=== PATIENT | female | born 1970 | race Caucasian/White ===

== ENCOUNTER 2016-10-14 19:36 | Emergency (ER) | payer OTHER ==
[2016-10-14] MEDS ORDERED: SODIUM CHLORIDE 0.9% 1,000 ML IV ONE (21:07)
[2016-10-14 21:19] LABS: BASOPHILS # (AUTO) 0.1 10^3/uL (0.0-0.1); BASOPHILS % (AUTO) 0.7 %; EOSINOPHILS # (AUTO) 0.1 10^3/uL (0.0-0.7); EOSINOPHILS % (AUTO) 1.2 %; HCT - HEMATOCRIT 41.1 % (37.0-47.0); HGB - HEMOGLOBIN 13.9 g/dL (12.0-16.0); LYMPHOCYTES # (AUTO) 2.3 10^3/uL (1.5-3.5); LYMPHOCYTES % (AUTO) 28.4 %; MEAN CORPUSCULAR HGB CONC 33.8 g/dL (32.0-36.0); MEAN CORPUSCULAR VOLUME 94.7 fL (81.0-99.0); MEAN PLATELET VOLUME 8.6 fL (7.9-10.8); MONOCYTES # (AUTO) 0.6 10^3/uL (0.0-1.0); MONOCYTES % (AUTO) 7.3 %; NEUTROPHILS # (AUTO) 5.1 10^3/uL (1.5-6.6); NEUTROPHILS % (AUTO) 62.4 %; NUCLEATED RED BLOOD CELLS AUTO 0.1 /100WBC; RED BLOOD COUNT 4.34 10^6/uL (4.20-5.40); RED CELL DISTRIBUTION WIDTH 12.7 % (12.0-15.0); UNCORRECTED WHITE BLOOD COUNT 8.2 x10^3/uL; WHITE BLOOD COUNT 8.2 x10^3/uL (4.8-10.8)
[2016-10-14 21:27] LABS: BILIRUBIN,URINE NEGATIVE (NEGATIVE)
[2016-10-14 21:29] LABS: UA w/ MICROSCOPIC CHARGE YES
[2016-10-14 21:33] LABS: ALBUMIN/GLOBULIN RATIO 1.6 (1.0-2.2); BILIRUBIN,TOTAL 0.2 mg/dL (0.2-1.0); CALCIUM 8.7 mg/dL (8.5-10.3); CREATININE 0.9 mg/dL (0.4-1.0); MAGNESIUM 2.1 mg/dL (1.7-2.8); PHOSPHORUS 4.1 mg/dL (2.5-4.6); TOTAL PROTEIN 6.7 g/dL (6.7-8.2)
[2016-10-14 21:40] LABS: UR CULTURE IF IND NOT INDICATED; WBC,URINE 0-3 /HPF (0-5)
--- NOTE | 2016-10-14 22:34 | ED Physician Documentation ---
History of Present Illness - Stated complaint Stated Complaint: SYNCOPE/ R SIDE PX - Chief complaint Chief Complaint: General - History obtained from History obtained from: Patient, Family - History of Present Illness Timing: Today - Additonal information Additional information: Patient is a 46 year old female who is presenting to the emergency department for generalized weakness, muscle cramps, hot flashes and near syncope. Patient states that for years she has had issues where her blood sugar drops, as low as 35. Patient states that today she felt weak and clammy. patient did not have a glucometer but she was able to eat some food and the symptoms partially improved. Patient also reports that she has been feeling light headed and overall fatigue. She states that recently she has been getting hot flashes as well. Review of Systems Constitutional: reports: Fever, Chills, Myalgias, Fatigue, Sweats. denies: Weight Loss Eyes: denies: Loss of vision, Photophobia, Discharge, Irritation Ears: denies: Loss of hearing, Ear pain, Drainage/discharge Nose: reports: Congestion, Sinus pressure / pain Throat: denies: Dental pain / toothache, Sore throat Respiratory: denies: Dyspnea, Cough, Wheezing GI: reports: Abdominal Pain, Nausea. denies: Vomiting, Constipation, Diarrhea, Hematemesis : denies: Dysuria, Frequency, Hesitancy, Incontinent, Hematuria, Discharge, Vaginal bleeding, Irregular menses Skin: denies: Rash, Lesions, Abrasion (s), Laceration (s) Musculoskeletal: denies: Neck pain, Back pain, Extremity pain, Joint pain Neurologic: reports: Generalized weakness, Near syncope. 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, 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 - Present Medications Home Medications: Ambulatory Orders Medication Instructions Recorded Confirmed Atenolol 50 mg PO DAILY 02/04/15 10/14/16 Citalopram [CeleXA] 50 mg PO DAILY 02/04/15 10/14/16 Flecainide [Tambocar] 150 mg PO DAILY 02/04/15 10/14/16 Multivitamin,Ther and Minerals 1 tab PO DAILY 02/04/15 10/14/16 [Vitamin and Minerals] busPIRone [Buspar] 10 mg PO TID 02/04/15 10/14/16 traMADol [Ultram] 50 mg PO DAILY PRN 12/11/15 10/14/16 HYDROcod/ACETAM 5/325 [[place] 5/325] 1 - 2 ea PO Q6H PRN #14 tablet 03/25/1605/22 Cyclobenzaprine [Flexeril] 1 tab PO TID 09/02/16 10/14/16 - Allergies Allergies/Adverse Reactions: Allergies Allergy/AdvReac Type Severity Reaction Status Date / Time gabapentin Allergy Edema Verified 10/14/16 19:50 nortriptyline Allergy Hallucinati Verified 10/14/16 19:50 ons pregabalin [From Lyrica] Allergy Edema Verified 10/14/16 19:50 scallops Allergy Rash Verified 10/14/16 19:50 - Social History Does the pt smoke?: Yes Smoking Status: Current every day smoker Does the pt drink ETOH?: No Does the pt have substance abuse?: No - Immunizations Immunizations are current?: Yes - POLST Patient has POLST: No PD ED PE NORMAL - Vitals Vital signs reviewed: Yes - General General: Alert and oriented X 3, Well developed/nourished - HEENT HEENT: Atraumatic, PERRL, Moist mucous membranes, Pharynx benign - Neck Neck: Supple, no meningeal sign, No JVD - Cardiac Cardiac: RRR, No murmur, No rub - Respiratory Respiratory: No respiratory distress, Clear bilaterally - Abdomen Abdomen: Soft, Non distended - Derm Derm: Normal color, Warm and dry, No rash - Extremities Extremities: No deformity, No tenderness to palpate, Normal ROM s pain, No edema - Neuro Neuro: Alert and oriented X 3, injection molding technician 2-12 intact, No motor deficit, No sensory deficit, Normal speech - Psych Psych: Normal mood, Normal affect Results - Vitals Vitals: Vital Signs - 24 hr 10/14/16 10/14/16 10/14/16 19:44 21:45 22:38 Temperature 37.0 C Heart Rate 98 67 66 Respiratory 16 16 15 Rate Blood Pressure 132/86 H 124/67 129/69 O2 Saturation 99 100 100 Oxygen O2 Source Room air - EKG (time done) 3 Rate: Rate (enter#) (66) Rhythm: NSR N[place]: Normal Intervals: Normal IA QRS: Normal Ischemia: Normal ST segments - Labs Labs: Laboratory Tests 10/14/16 10/14/16 10/14/16 20:50 21:15 21:15 WBC 8.2 RBC 4.34 Hgb 13.9 Hct 41.1 MCV 94.7 MCH 32.0 H MCHC 33.8 RDW 12.7 Plt Count 228 MPV 8.6 Neut # 5.1 Lymph # 2.3 [place] # 0.6 Eos # 0.1 Baso # 0.1 Absolute Nucleated RBC 0.01 Nucleated RBCs 0.1 Sodium 137 Potassium 4.0 Chloride 102 Carbon Dioxide 26 Anion Gap 9.0 BUN 14 Creatinine 0.9 Estimated GFR (MDRD) 67 L Glucose 93 Calcium 8.7 Phosphorus 4.1 Magnesium 2.1 Total Bilirubin 0.2 AST 38 ALT 46 Alkaline Phosphatase 126 H B-Natriuretic Peptide Total Protein 6.7 Albumin 4.1 Globulin 2.6 Albumin/Globulin Ratio 1.6 Lipase 21 L TSH Urine Color YELLOW Urine Clarity CLEAR Urine pH 6.0 Ur Specific [place] 1.025 Urine Protein NEGATIVE Urine Glucose (UA) NEGATIVE Urine Ketones NEGATIVE Urine Occult Blood MODERATE H Urine Nitrite NEGATIVE Urine Bilirubin NEGATIVE Urine Urobilinogen 0.2 (NORMAL) Ur Leukocyte Esterase NEGATIVE Urine RBC 0-5 Urine WBC 0-3 Ur Squamous Epith Cells FEW Squamous Urine Bacteria Few Urine Mucus Few Strands Ur Microscopic Review INDICATED Urine Culture Comments NOT INDICATED 10/14/16 10/14/16 21:15 21:15 WBC RBC Hgb Hct MCV MCH MCHC RDW Plt Count MPV Neut # Lymph # [place] # Eos # Baso # Absolute Nucleated RBC Nucleated RBCs Sodium Potassium Chloride Carbon Dioxide Anion Gap BUN Creatinine Estimated GFR (MDRD) Glucose Calcium Phosphorus Magnesium Total Bilirubin AST ALT Alkaline Phosphatase B-Natriuretic Peptide 9 Total Protein Albumin Globulin Albumin/Globulin Ratio Lipase TSH 2.54 Urine Color Urine Clarity Urine pH Ur Specific [place] Urine Protein Urine Glucose (UA) Urine Ketones Urine Occult Blood Urine Nitrite Urine Bilirubin Urine Urobilinogen Ur Leukocyte Esterase Urine RBC Urine WBC Ur Squamous Epith Cells Urine Bacteria Urine Mucus Ur Microscopic Review Urine Culture Comments PD MEDICAL DECISION MAKING - ED course Complexity details: reviewed results, re-evaluated patient, considered differential, d/w patient, d/w family ED course: Patient was seen and examined at bedside. iv access was gained and labs were drawn. ekg was performed and was within normal limits. Patient was treated with ns bolus. Patient responded well to the therapy. patient's diagnostics were all within normal limits. the findings were discussed with the patient and her family. Patient stated that she was feeling better and wanted to go home. patient required no further work up and was stable for discharge with outpatient follow up. Departure - Departure Disposition: Home, Self Care Clinical Impression: Fatigue Condition: Good Instructions: Hypoglycemia Follow-Up: primary,care provider [Other] - Within 1 week Comments: Your diagnostics today were within normal limits. There was no sign of acute infection, or any type of electrolyte abnormality. Some of your symptoms might be related to a perimenopause symptoms. You should follow up with your pmd within the next week if possible for re-evaluation and care. You may return to the emergency department at any time for new, worsening or uncontrollable symptoms. Discharge Date/Time: 10/14/16 22:43
[2016-10-14 22:39] VITALS: BP 129/69
== END 2016-10-14 22:43 | disposition home or self-care (01) ==
LOC: ED 19:36
DX: R53.83 Other fatigue (principal); N95.1 Menopausal and female climacteric states; I10 Essential (primary) hypertension; M79.7 Fibromyalgia; F17.200 Nicotine dependence, unspecified, uncomplicated
CPT/HCPCS: 36415; 80053; 81001; 81003; 83690; 83735; 83880; 84100; 84443; 85025; 87086; 93005; 93010; 99284

== ENCOUNTER 2016-11-15 14:01 | Outpatient (CLI) | payer OTHER ==
--- NOTE | 2016-11-16 17:36 | Mammography Report ---
DIGITAL SCREENING MAMMOGRAM: 11/15/2016 CLINICAL INDICATION: A 46-year-old with history of benign left breast biopsy for screening. COMPARISON: 03/2015, 03/2014, 07/2013. TECHNIQUE: Routine CC and MLO projections were obtained of the breasts. The breasts demonstrate scattered fibroglandular densities bilaterally. Post-biopsy changes in the l eft upper-inner posterior breast are stable, with biopsy marker in place. A few punctate, typically benign calcifications are present. No suspicious masses, clustered microcalcifications, or regions o f architectural distortion are identified. IMPRESSION: BENIGN FINDINGS. RECOMMENDATION: ROUTINE ANNUAL SCREENING UNLESS OTHERWISE CLINICALLY INDICATED. BIRADS CATEGORY: 2, BENIGN FINDINGS. STANDARD QUALIFYING STATEMENTS 1. This examination was reviewed with the aid of Computed-Aided Detection (CAD). 2. A negative or benign imaging report should not delay biopsy if clinically suspicious findings are present. Consider surgical consultation if warranted. More than 5% of cancers are not identified b y imaging. 3. Dense breasts may obscure an underlying neoplasm. JOB #: [id number] EXT JOB #:[id number]
== END 2016-11-15 14:02 | disposition home or self-care (01) ==
LOC: DI 14:01
PROVIDERS: ATTEND Internal Medicine
DX: Z12.31 Encounter for screening mammogram for malignant neoplasm of breast (principal)
CPT/HCPCS: 77067

== ENCOUNTER 2017-01-03 13:32 | Outpatient (CLI) | payer OTHER | END 2017-01-03 13:33 | disposition home or self-care (01) | DX: G47.33 Obstructive sleep apnea (adult) (pediatric) (principal) ==

== ENCOUNTER 2017-01-24 19:34 | Outpatient (CLI) | payer OTHER | END 2017-01-24 19:35 | disposition home or self-care (01) | LOC: SC 19:34 | PROVIDERS: ATTEND Internal Medicine Pulmonary Disease | DX: G47.61 Periodic limb movement disorder (principal) | CPT/HCPCS: 95810 ==

== ENCOUNTER 2017-02-24 08:55 | Outpatient (CLI) | payer OTHER | END 2017-02-24 08:56 | disposition home or self-care (01) | LOC: SC 08:55 | PROVIDERS: ATTEND Nurse Practitioner Family | DX: G47.61 Periodic limb movement disorder (principal); R06.83 Snoring; I49.9 Cardiac arrhythmia, unspecified | CPT/HCPCS: 99212; 99214 ==

== ENCOUNTER 2017-04-28 12:31 | Emergency (ER) | payer OTHER ==
[2017-04-28] MEDS ORDERED: DEXAMETHASONE 10 MG/ML VIAL PO STA (13:45)
--- NOTE | 2017-04-28 13:49 | ED Physician Documentation ---
PD HPI HEADACHE - Stated complaint Stated Complaint: HEAD PX, L SIDE FACE NUMB - Chief complaint Chief Complaint: Neuro - History obtained from History obtained from: Patient - History of Present Illness Timing - onset: How many days ago (11) Timing - onset during: Rest Timing - duration: Days (11) Timing - details: Gradual onset, Still present Worst headache ever?: No: Worst headache ever? Location: Left Quality: Stabbing Associated symptoms: Stiff neck, Numbness. No: Nausea, Vomiting, Weakness Improved by: Rest Worsened by: Light, Noise, Moving Contributing factors: No: Anticoagulated Similar symptoms before: Diagnosis (migraines) Recently seen: Not recently seen - Additional information Additional information: 46-year-old female with a history of herpes type I-type II and Herpetic yogesh has developed a headache on the left side of her head that she describes as intense prickling in the side of her head and onto her face. She feels a pins and needles and numbness. She has pain in episodes that occurs with irritation to her skin and she has developed some tiny blisters in several areas. She has not developed blisters in the scalp but she has had pain in the scalp. She has had symptoms similar to this previously to a much lesser extent that it spontaneously resolved previously. Review of Systems Constitutional: reports: Fatigue. denies: Fever, Chills Eyes: reports: Photophobia. denies: Decreased vision Ears: denies: Ear pain Nose: denies: Rhinorrhea / runny nose, Congestion Throat: denies: Sore throat Cardiac: denies: Chest pain / pressure, Palpitations Respiratory: denies: Dyspnea, Cough GI: denies: Nausea, Vomiting : denies: Dysuria, Frequency Skin: reports: Rash Musculoskeletal: reports: Neck pain. denies: Back pain, Extremity pain Neurologic: reports: Numbness, Headache. 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 - Present Medications Home Medications: Ambulatory Orders Medication Instructions Recorded Confirmed Atenolol 50 mg PO DAILY 02/04/15 04/28/17 Citalopram [CeleXA] 50 mg PO DAILY 02/04/15 04/28/17 Flecainide [Tambocar] 150 mg PO DAILY 02/04/15 04/28/17 Multivitamin,Ther and Minerals 1 tab PO DAILY 02/04/15 04/28/17 [Vitamin and Minerals] busPIRone [Buspar] 10 mg PO TID 02/04/15 04/28/17 Cyclobenzaprine [Flexeril] 1 tab PO TID 09/02/16 04/28/17 HYDROcod/ACETAM 5/325 [[place] 5/325] 1 - 2 ea PO Q6H PRN #15 tablet 04/28/17 - Allergies Allergies/Adverse Reactions: Allergies Allergy/AdvReac Type Severity Reaction Status Date / Time gabapentin Allergy Edema Verified 04/28/17 12:47 nortriptyline Allergy Hallucinati Verified 04/28/17 12:47 ons pregabalin [From Lyrica] Allergy Edema Verified 04/28/17 12:47 scallops Allergy Rash Verified 04/28/17 12:47 - Social History Does the pt smoke?: Yes Smoking Status: Current every day smoker Does the pt drink ETOH?: No Does the pt have substance abuse?: No - Immunizations Immunizations are current?: Yes - POLST Patient has POLST: No PD ED PE NORMAL - Vitals Vital signs reviewed: Yes (Normal) - General General: Well developed/nourished, Other (squinting on the left appears in pain ) - HEENT HEENT: Atraumatic, PERRL, EOMI, Ears normal, Moist mucous membranes, Pharynx benign, Dentition benign, Other (There are several tiny ulcerated vesicles on the left face they are sensitive to touch. ) - Neck Neck: Supple, no meningeal sign, No bony TTP, Other (There is tenderness to palpation at the insertion of the trapezius to the occiput. ) - Cardiac Cardiac: RRR, No murmur - Respiratory Respiratory: No respiratory distress, Clear bilaterally - Derm Derm: Normal color, Warm and dry - Extremities Extremities: No deformity, No edema - Neuro Neuro: Alert and oriented X 3, celluloid trimmer 2-12 intact, No motor deficit, No sensory deficit, Normal speech - Psych Psych: Normal mood, Normal affect Results - Vitals Vitals: Vital Signs - 24 hr 04/28/17 12:44 Temperature 36.6 C Heart Rate 76 Respiratory 16 Rate Blood Pressure 130/80 O2 Saturation 100 Oxygen O2 Source Room air PD MEDICAL DECISION MAKING - ED course Complexity details: reviewed old records, re-evaluated patient, considered differential, d/w patient ED course: 46 y/o female with pain to the left side of the face and scalp has a history of herpes infections and I believe this is a zoster on the left side. She also has pain to the left greater occipital nerve insertion. She is given decadron and she will take the acyclovir she has at home and we will provide some pain mediation. Departure - Departure Disposition: Home, Self Care Clinical Impression: Herpes zoster Qualifiers: Herpes zoster complications: without complications Qualified Code(s): B02.9 - Zoster without complications Condition: Stable Instructions: ED Shingles Follow-Up: Ana Cheung ARNP [Primary Care Provider] - Prescriptions: HYDROcod/ACETAM 5/325 [[place] 5/325] 1 - 2 ea PO Q6H PRN #15 tablet PRN Reason: Pain Comments: Today it appears you have a herpes zoster infection in the face. Take the acyclovir you have at home and use the pain medication as needed.
[2017-04-28] MEDS ORDERED: DEXAMETHASONE 10 MG/ML VIAL ONE (13:53)
[2017-04-28 14:05] VITALS: BP 128/78
== END 2017-04-28 14:03 | disposition home or self-care (01) ==
LOC: ED 12:31
DX: B02.9 Zoster without complications (principal); I10 Essential (primary) hypertension; Z86.711 Personal history of pulmonary embolism
CPT/HCPCS: 99283

== ENCOUNTER 2017-07-30 08:45 | Emergency (ER) | payer OTHER ==
--- NOTE | 2017-07-30 08:59 | ED Physician Documentation ---
PD HPI URI - Stated complaint Stated Complaint: DIFFICULTY BREATHING - History obtained from History obtained from: Patient, Family - History of Present Illness Timing - onset: How many days ago (2) Timing duration: Days (2) Timing details: Gradual onset, Still present Associated symptoms: Nasal congestion, Rhinorrhea, Sore throat, Swollen nodes, Productive cough, Dyspnea Contributing factors: Sick contact Improves by: Rest, Medication Worsened by: Activity Similar symptoms before: Diagnosis (bronchitis and pneumonia) Recently seen: Not recently seen - Additional information Additional information: 47-year-old female with a prior history of bronchitis and pneumonia has developed a cough and congestion she has been coughing up thick yellow green phlegm that is difficult to get out. She has developed some shortness of breath with this as well. She has a sore throat and some swollen nodes. She has lost her voice. Review of Systems Constitutional: denies: Fever Eyes: denies: Decreased vision Ears: denies: Ear pain Nose: reports: Rhinorrhea / runny nose, Congestion Throat: reports: Sore throat Cardiac: denies: Chest pain / pressure, Palpitations Respiratory: reports: Dyspnea, Cough GI: denies: Abdominal Pain, Nausea, Vomiting : denies: Dysuria, Frequency PD PAST MEDICAL HISTORY - Past Medical History Cardiovascular: Hypertension, Pulmonary embolism, Arrhythmia HEENT: Other Psych: Depression, Anxiety, Post traumatic stress disorder Musculoskeletal: Osteoarthritis, Fibromyalgia, Chronic back pain Derm: Herpes zoster - Past Surgical History Past Surgical History: Yes 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, 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 - Present Medications Home Medications: Ambulatory Orders Medication Instructions Recorded Confirmed Atenolol 50 mg PO DAILY 02/04/15 07/30/17 Citalopram [CeleXA] 50 mg PO DAILY 02/04/15 07/30/17 Flecainide [Tambocar] 150 mg PO DAILY 02/04/15 07/30/17 Multivitamin,Ther and Minerals 1 tab PO DAILY 02/04/15 07/30/17 [Vitamin and Minerals] busPIRone [Buspar] 10 mg PO TID 02/04/15 07/30/17 Cyclobenzaprine [Flexeril] 1 tab PO TID 09/02/16 07/30/17 Albuterol Sulf [Ventolin Hfa 1 - 2 puffs INH Q4HR PRN #1 inhaler 07/30/17 Inhaler] Azithromycin [Zithromax] 250 mg PO DAILY #6 tablet 07/30/17 Benzonatate [Tessalon] 100 - 200 mg PO TID PRN #20 capsule 07/30/17 - Allergies Allergies/Adverse Reactions: Allergies Allergy/AdvReac Type Severity Reaction Status Date / Time gabapentin Allergy Edema Verified 07/30/17 09:06 nortriptyline Allergy Hallucinati Verified 07/30/17 09:06 ons pregabalin [From Lyrica] Allergy Edema Verified 07/30/17 09:06 scallops Allergy Rash Verified 07/30/17 09:06 - Social History Does the pt smoke?: Yes Smoking Status: Current every day smoker Does the pt drink ETOH?: No Does the pt have substance abuse?: No - Immunizations Immunizations are current?: Yes - POLST Patient has POLST: No PD ED PE NORMAL - General General: No acute distress, Well developed/nourished - HEENT HEENT: Atraumatic, PERRL, EOMI, Ears normal, Moist mucous membranes, Pharynx benign - Neck Neck: Supple, no meningeal sign, Other (tender submandibular adenopathy) - Respiratory Respiratory: No respiratory distress, Other (diminished breath sounds bilaterally ) - Abdomen Abdomen: Soft, Non tender - Back Back: No CVA TTP, No spinal TTP - Derm Derm: Normal color, Warm and dry, No rash - Extremities Extremities: No deformity, No edema - Neuro Neuro: No motor deficit, No sensory deficit Eye Opening: Spontaneous Motor: Obeys Commands Verbal: Oriented GCS Score: 15 - Psych Psych: Normal mood, Normal affect Results - Vitals Vitals: Vital Signs - 24 hr 07/30/17 07/30/17 08:53 09:18 Temperature 36.8 C Heart Rate 98 84 Respiratory 22 20 Rate Blood Pressure 118/69 115/72 O2 Saturation 98 96 Oxygen O2 Source Room air - Labs Labs: Laboratory Tests 07/30/17 07/30/17 09:00 09:00 Influenza A (Rapid) Negative Influenza B (Rapid) Negative Influenza Types A,B Ag - Group A Strep Rapid Negative PD MEDICAL DECISION MAKING - ED course Complexity details: reviewed results, re-evaluated patient, considered differential, d/w patient, d/w family ED course: 47 y/o female with soa has clear cxr, negative rapid strep and negative influenza. She has lost her voice and she is given decadron and we will place her on a course of zithromax. Departure - Departure Disposition: 01 Home, Self Care Clinical Impression: Bronchitis Condition: Stable Instructions: ED Bronchitis Asthmatic Follow-Up: Ana Cheung ARNP [Primary Care Provider] - Prescriptions: Albuterol Sulf [Ventolin Hfa Inhaler] 1 - 2 puffs INH Q4HR PRN #1 inhaler PRN Reason: Shortness Of Air/Wheezing Azithromycin [Zithromax] 250 mg PO DAILY #6 tablet Benzonatate [Tessalon] 100 - 200 mg PO TID PRN #20 capsule PRN Reason: Cough
[2017-07-30 09:30] LABS: RAPID STREP SCREEN REAGENT QC YELLOW (YELLOW)
[2017-07-30] MEDS ORDERED: DEXAMETHASONE 10 MG/ML VIAL PO STA (10:14)
[2017-07-30] MEDS ORDERED: CHERRY SYRUP 10 ML UDC PO ONE (10:25)
[2017-07-30] MEDS ORDERED: DEXAMETHASONE 10 MG/ML VIAL ONE (10:25)
[2017-07-30 10:59] VITALS: BP 120/69
== END 2017-07-30 10:29 | disposition home or self-care (01) ==
LOC: ED 08:45
DX: J40 Bronchitis, not specified as acute or chronic (principal); I10 Essential (primary) hypertension; Z86.711 Personal history of pulmonary embolism; I49.9 Cardiac arrhythmia, unspecified; M19.90 Unspecified osteoarthritis, unspecified site; M79.7 Fibromyalgia; Z98.84 Bariatric surgery status; F17.200 Nicotine dependence, unspecified, uncomplicated
CPT/HCPCS: 87070; 87275; 87276; 87430; 99283; A9270

== ENCOUNTER 2017-10-08 13:13 | Outpatient (CLI) | payer OTHER ==
--- NOTE | 2017-10-08 22:59 | Ultrasound Report ---
EXAM: THYROID ULTRASOUND EXAM DATE: 10/08/2017 01:52 PM. CLINICAL HISTORY: Thyroid nodule. COMPARISON: None. TECHNIQUE: Real time sonographic imaging of the thyroid was performed by the dba. Multiple re presentative static images were saved for review. FINDINGS: THYROID GLAND: Right Lobe: 4.6 x 1.5 x 2.1 cm, volume 7.5 cc. Normal background echotexture. Right Lobe Nodules: Hypoechoic solid nodule, posterior midportion, 1.3 x 1.0 x 1.1 cm. Left Lobe: 4.8 x 1.2 x 1.7 cm, volume 5.1 cc. Normal background echotexture. Left Lobe Nodules: None. Isthmus: 0.2 cm AP. Isthmic Nodules: None. LYMPH NODES: No adenopathy demonstrated in the central or lateral compartment. OTHER: None. IMPRESSION: Mildly hypoechoic 1.3 cm right thyroid nodule, NAYE intermediate suspicion sonographic pattern. Given size greater than 1 cm, the nodule meets NAYE criteria for FNA. Management recommendations are based on 2015 [place] [employer] Management Guidelines for A dult Patients with Thyroid Nodules and Differentiated Thyroid Cancer. [facility] Referring Provider Line: [phone] SITE ID: [id number]
== END 2017-10-08 13:14 | disposition home or self-care (01) ==
LOC: DI 13:13
PROVIDERS: ATTEND Nurse Practitioner
DX: E04.1 Nontoxic single thyroid nodule (principal)
CPT/HCPCS: 76536

== ENCOUNTER 2017-11-14 11:41 | Outpatient (CLI) | payer OTHER ==
--- NOTE | 2017-11-16 09:58 | Mammography Report ---
BILATERAL SCREENING MAMMOGRAM: 11/14/2017 COMPARISON: Mammogram of 11/15/2016. INDICATION: Screening. TECHNIQUE: Bilateral CC and MLO breast views. FINDINGS: The breast parenchyma is heterogeneously dense which may limit the sensitivity of mammography. There is a left biopsy clip. No dominant mass, architectural distortion, or concerning cluster of microcalcifications is seen. IMPRESSION: 1. BI-RADS CATEGORY 2. BENIGN FINDINGS. 2. RECOMMEND ANNUAL SCREENING MAMMOGRAM. STANDARD QUALIFYING STATEMENTS: 1. This examination was reviewed with the aid of Computer-Aided Detection (CAD) . 2. A negative or benign imaging report should not delay biopsy if clinically suspicious findings are present. Consider surgical consultation if warranted. More than 5 % of cancers are not identified by imaging. 3. Dense breasts may obscure an underlying neoplasm. TD: 11/16/2017 09:58 WILMA
== END 2017-11-14 11:42 | disposition home or self-care (01) ==
LOC: DI 11:41
PROVIDERS: ATTEND Nurse Practitioner
DX: Z12.31 Encounter for screening mammogram for malignant neoplasm of breast (principal)
CPT/HCPCS: 77067

== ENCOUNTER 2017-12-16 12:04 | Emergency (ER) | payer OTHER ==
[2017-12-16] MEDS ORDERED: SODIUM CHLORIDE 0.9% 1,000 ML IV ONE (12:18)
[2017-12-16 12:20] LABS: BASOPHILS % (AUTO) 0.6 %; EOSINOPHILS # (AUTO) 0.1 10^3/uL (0.0-0.7); EOSINOPHILS % (AUTO) 1.1 %; HGB - HEMOGLOBIN 14.5 g/dL (12.0-16.0); LYMPHOCYTES # (AUTO) 2.2 10^3/uL (1.5-3.5); LYMPHOCYTES % (AUTO) 29.9 %; MEAN CORPUSCULAR HEMOGLOBIN 31.4 pg (27.0-31.0); MEAN CORPUSCULAR HGB CONC 34.5 g/dL (32.0-36.0); MEAN CORPUSCULAR VOLUME 90.9 fL (81.0-99.0); MEAN PLATELET VOLUME 7.8 fL (7.9-10.8); MONOCYTES # (AUTO) 0.5 10^3/uL (0.0-1.0); MONOCYTES % (AUTO) 7.1 %; NEUTROPHILS # (AUTO) 4.5 10^3/uL (1.5-6.6); NEUTROPHILS % (AUTO) 61.3 %; PLT - PLATELET COUNT 241 10^3/uL (130-450); RED BLOOD COUNT 4.61 10^6/uL (4.20-5.40); RED CELL DISTRIBUTION WIDTH 12.6 % (12.0-15.0); WHITE BLOOD COUNT 7.3 x10^3/uL (4.8-10.8)
--- NOTE | 2017-12-16 12:21 | ED Physician Documentation ---
PD HPI CHEST PAIN - Stated complaint Stated Complaint: CHEST PX - Chief complaint Chief Complaint: Cardiac - History obtained from History obtained from: Patient - History of Present Illness Timing - onset: Other (47-year-old woman with history of bigeminy on flecainide , also has a history of PE but this is somewhat nebulous, she says that about 10 years ago she had an episode and was put in the hospital for a positive d- dimer but all the scans were negative. She was discharged on warfarin but and her doctor told her never to take it. She has had some odd chest pains and trouble breathing lately, for this she is scheduled to have an echo and a Holter monitor soon, but suddenly today about an hour ago while in the shower she felt like her heart was racing and she has had some lightheadedness and shortness of breath that is intermittent with it. She denies any asymmetric pedal edema or calf pain but she has had some swelling of the feet bilaterally. There is no possibility of , she is status post hysterectomy. She has also had a gastric bypass in the past.) Review of Systems Ten Systems: 10 systems reviewed and negative Constitutional: reports: Fatigue. denies: Fever, Chills Eyes: denies: Loss of vision, Decreased vision Ears: denies: Loss of hearing, Ear pain Nose: denies: Rhinorrhea / runny nose, Congestion Throat: denies: Sore throat Cardiac: reports: Chest pain / pressure, Palpitations, Pedal edema. denies: Calf pain Respiratory: reports: Dyspnea. 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, 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 - Present Medications Home Medications: Ambulatory Orders Medication Instructions Recorded Confirmed Citalopram [CeleXA] 50 mg PO DAILY 02/04/15 07/30/17 Flecainide [Tambocar] 150 mg PO DAILY 02/04/15 07/30/17 Multivitamin,Ther and Minerals 1 tab PO DAILY 02/04/15 07/30/17 [Vitamin and Minerals] busPIRone [Buspar] 10 mg PO TID 02/04/15 07/30/17 Albuterol Sulf [Ventolin Hfa 1 - 2 puffs INH Q4HR PRN #1 inhaler 07/30/17 Inhaler] - Allergies Allergies/Adverse Reactions: Allergies Allergy/AdvReac Type Severity Reaction Status Date / Time gabapentin Allergy Edema Verified 07/30/17 09:06 nortriptyline Allergy Hallucinati Verified 07/30/17 09:06 ons pregabalin [From Lyrica] Allergy Edema Verified 07/30/17 09:06 scallops Allergy Rash Verified 07/30/17 09:06 - Social History Does the pt smoke?: Yes Smoking Status: Current every day smoker Does the pt drink ETOH?: No Does the pt have substance abuse?: No - Family History Family history: reports: Non contributory - Immunizations Immunizations are current?: Yes - POLST Patient has POLST: No PD ED PE NORMAL - Vitals Vital signs reviewed: Yes (tachycardic) - General General: Alert and oriented X 3, No acute distress - HEENT HEENT: PERRL, EOMI - Neck Neck: Supple, no meningeal sign, No bony TTP - Cardiac Cardiac: Other (tachycardic, reg, no mmr) - Respiratory Respiratory: No respiratory distress, Clear bilaterally - Abdomen Abdomen: Normal bowel sounds, Soft, Non tender - Back Back: No CVA TTP, No spinal TTP - Derm Derm: Normal color, Warm and dry - Extremities Extremities: No edema, No calf tenderness / cord - Neuro Neuro: Alert and oriented X 3, Normal speech - Psych Psych: Normal mood, Normal affect Results - Vitals Vitals: Vital Signs - 24 hr 12/16/17 12/16/17 12/16/17 12:06 12:29 13:26 Temperature 36.6 C Heart Rate 118 H 91 88 Respiratory 18 14 14 Rate Blood Pressure 153/98 H 153/98 H 128/78 Blood Pressure [Left] Blood Pressure [Right] O2 Saturation 100 100 100 12/16/17 12/16/17 12/16/17 13:51 13:56 14:44 Temperature Heart Rate 91 83 Respiratory 18 18 Rate Blood Pressure 126/84 H 126/85 H Blood Pressure 132/66 H [Left] Blood Pressure 128/64 [Right] O2 Saturation 100 100 12/16/17 15:05 Temperature Heart Rate 74 Respiratory 18 Rate Blood Pressure 125/86 H Blood Pressure [Left] Blood Pressure [Right] O2 Saturation 99 Oxygen O2 Source Room air - EKG (time done) 1207 Rate: Rate (enter#) (117) Rhythm: Sinus tachycardia [place]: Normal Intervals: Normal [place] QRS: Normal Ischemia: Non specific changes (diffuse flat twaves) Compare to prior EKG: Old EKG unavailable Computer interpretation: Agree with computer - Labs Labs: Laboratory Tests 12/16/17 12/16/17 12/16/17 12:10 12:10 12:10 WBC 7.3 RBC 4.61 Hgb 14.5 Hct 41.9 MCV 90.9 MCH 31.4 H MCHC 34.5 RDW 12.6 Plt Count 241 MPV 7.8 L Neut # 4.5 Lymph # 2.2 [place] # 0.5 Eos # 0.1 Baso # 0.0 Absolute Nucleated RBC 0.00 Nucleated RBC % 0.0 Sodium 134 L Potassium 3.4 L Chloride 101 Carbon Dioxide 23 Anion Gap 10.0 BUN 11 Creatinine 0.7 Estimated GFR (MDRD) 89 Glucose 120 H Calcium 8.9 Total Bilirubin 0.7 AST 31 ALT 30 Alkaline Phosphatase 120 Troponin I < 0.04 Total Protein 7.0 Albumin 4.1 Globulin 2.9 Albumin/Globulin Ratio 1.4 Lipase 17 L 12/16/17 14:39 WBC RBC Hgb Hct MCV MCH MCHC RDW Plt Count MPV Neut # Lymph # [place] # Eos # Baso # Absolute Nucleated RBC Nucleated RBC % Sodium Potassium Chloride Carbon Dioxide Anion Gap BUN Creatinine Estimated GFR (MDRD) Glucose Calcium Total Bilirubin AST ALT Alkaline Phosphatase Troponin I < 0.04 Total Protein Albumin Globulin Albumin/Globulin Ratio Lipase - Rads (name of study) CT Chest PE Protocol Radiology: EMP read contemporaneously (normal) BLE DVT study Radiology: EMP read contemporaneously (negative) PD MEDICAL DECISION MAKING - ED course ED course: 47-year-old woman with history of nebulous PE potentially presents with chest pain and tachycardia, PE is of course a concern. Her legs were measured and symmetric with equal circumference. A CT of the chest was negative for PE as well as a lower extremity Doppler. Her heart rate/tachycardia resolved without specific intervention. Departure - Departure Disposition: 01 Home, Self Care Clinical Impression: Chest pain Condition: Good Record reviewed to determine appropriate education?: Yes Instructions: ED Chest Pain NonCardiac Comments: Call your doctor to arrange a follow-up appointment, make the next available appointment. In the interim, return anytime if worse or if new symptoms develop.
[2017-12-16 12:34] LABS: ALBUMIN 4.1 g/dL (3.2-5.5); ALBUMIN/GLOBULIN RATIO 1.4 (1.0-2.2); BILIRUBIN,TOTAL 0.7 mg/dL (0.2-1.0); CALCIUM 8.9 mg/dL (8.5-10.3); CREATININE 0.7 mg/dL (0.4-1.0)
[2017-12-16] MEDS ORDERED: IOPAMIDOL-300 100 ML VIAL ONE ×2 (12:51→13:20)
[2017-12-16] MEDS ORDERED: IOPAMIDOL-300 100 ML VIAL IVP ONE ×2 (13:34)
--- NOTE | 2017-12-16 13:47 | CT Report ---
EXAM: CT ANGIOGRAM CHEST EXAM DATE: 12/16/2017 01:00 PM. CLINICAL HISTORY: Chest pain, dyspnea. COMPARISON: None. TECHNIQUE: Routine helical imaging was performed through the chest in the pulmonary arterial phase. I V Contrast: Total 180 cc Isovue-300 IV. Reconstructions: Coronal 3-D MIP reconstructions.Sagittal and coronal. 2 scans total, secondary to suboptimal enhancement of first scan. In accordance with CT protocol optimization, one or more of the following dose reduction techniques w ere utilized for this exam: automated exposure control, adjustment of mA and/or KV based on patient s ize, or use of iterative reconstructive technique. FINDINGS: Pulmonary Arteries: Diagnostic quality: Adequate through the segmental arteries. Negative for acute pulmonary embolism. The main pulmonary artery is normal in size. Lungs/Pleura: There is mild linear atelectasis in the medial basal right lower lobe. No consolidation or nodule. No pleural effusion. The trachea and central airways appear normal in caliber. Mediastinum: The heart size is normal. No mediastinal or hilar lymphadenopathy. No pericardial effusi on. Thoracic Aorta: No thoracic aortic aneurysm or dissection. Upper Abdomen: There are findings of previous stomach surgery and gastrojejunostomy. Other: None. IMPRESSION: 1. Negative for acute pulmonary embolism. 2. Clear lungs. 3. No other acute process in the chest. [facility] Referring Provider Line: [phone] SITE ID: [id number]
--- NOTE | 2017-12-16 13:47 | CT Preliminary Report ---
Exam: CT CHEST ANGIO (PE) IMPRESSION: 1. Negative for acute pulmonary embolism. 2. Clear lungs. 3. No other acute process in the chest. [facility] SITE ID: [id number]
[2017-12-16] MEDS ORDERED: oxyCOD/ACETAMIN 5 MG/325 MG TABLET PO STA (15:14)
--- NOTE | 2017-12-16 15:17 | Ultrasound Report ---
BILATERAL LOWER EXTREMITY VENOUS DUPLEX: 12/16/2017 CLINICAL INDICATION: Possible pulmonary embolus. TECHNIQUE: Real-time sonographic vascular imaging was performed by the staff sonographer through the bilateral lower extremities utilizing both color flow and Doppler spectral analysis. Multiple site safety representative static images were saved for review. FINDINGS: A bilateral lower extremity venous sonogram is performed revealing the common femoral, superficial femoral, profunda femoris, and popliteal veins to be adequately visualized without intraluminal defects. There is normal venous compression, augmentation, phasicity, and spontaneity of venous flow. In the calf, the visualized more cephalad portions of posterior tibial and peroneal veins are grossly compressible, without filling defects. IMPRESSION: NO EVIDENCE OF DEEP VENOUS THROMBOSIS. TD: 12/16/2017 15:16
[2017-12-16] MEDS ORDERED: SUMAtriptan 6 MG/0.5 ML VIAL SUBQ STA (15:21)
[2017-12-16 15:42] VITALS: BP 125/65
== END 2017-12-16 15:40 | disposition home or self-care (01) ==
LOC: ED 12:04
DX: R07.9 Chest pain, unspecified (principal); I10 Essential (primary) hypertension; Z86.711 Personal history of pulmonary embolism; I49.9 Cardiac arrhythmia, unspecified; M19.90 Unspecified osteoarthritis, unspecified site; M79.7 Fibromyalgia; Z98.84 Bariatric surgery status; F17.200 Nicotine dependence, unspecified, uncomplicated
CPT/HCPCS: 36415; 71275; 80053; 83690; 84484; 85025; 93005; 93970; 96360; 96372; 99283; 99284; A9270; Q9967

== ENCOUNTER 2018-03-03 06:31 | Emergency (ER) | payer OTHER ==
[2018-03-03 07:01] LABS: GLUCOSE, URINE (UA) NEGATIVE (NEGATIVE); KETONES,URINE (UA) NEGATIVE (NEGATIVE); LEUKOCYTE ESTERASE, URINE SMALL (NEGATIVE); NITRITE,URINE POSITIVE (NEGATIVE); OCCULT BLOOD,URINE LARGE (NEGATIVE); PROTEIN,URINE 100 mg/dL (NEGATIVE); UROBILINOGEN,URINE 1 (NORMAL) E.U./dL (NORMAL)
[2018-03-03 07:17] LABS: CLARITY,URINE CLOUDY (CLEAR)
[2018-03-03 07:18] LABS: BILIRUBIN,URINE NEGATIVE (NEGATIVE); HCG UR QUAL NEGATIVE; ICTOTEST,URINE NEGATIVE
[2018-03-03 07:31] LABS: RBC,URINE TNTC /HPF (0-5); WBC CLUMPS,URINE PRESENT
[2018-03-03 07:32] LABS: BACTERIA,URINE Moderate /HPF (None Seen); SQUAMOUS EPITHELIAL CELL,UR RARE Squamous (<= Few)
[2018-03-03] MEDS ORDERED: KETOROLAC 60 MG/2 ML VIAL IVP STA (07:54)
[2018-03-03] MEDS ORDERED: cefTRIAXone 1 GM in SODIUM CHLORIDE 0.9% MINIBAG 100 ML IV STA (07:57)
--- NOTE | 2018-03-03 07:57 | ED Physician Documentation ---
History of Present Illness - Stated complaint Stated Complaint: FEMALE - Chief complaint Chief Complaint: UTI - Additonal information Additional information: hx from pt 47 f s/p gatsric bypass, blanco, CS and hyst to ED with dysuria L flank pain, suprapubic pain nausea feeling hot and cold for 3 days Review of Systems Constitutional: reports: Fever (subj), Chills Cardiac: denies: Chest pain / pressure Respiratory: denies: Dyspnea GI: reports: Abdominal Pain (L) : reports: Dysuria, Hematuria Musculoskeletal: reports: Back pain (L flank) Endocrine: denies: Easy bruising / bleeding Immunocompromised: denies: Immunocompromised PD PAST MEDICAL HISTORY - Past Medical History Past Medical History: Yes Cardiovascular: Hypertension, Pulmonary embolism, Arrhythmia HEENT: Other Psych: Depression, Anxiety, Post traumatic stress disorder Musculoskeletal: Osteoarthritis, Fibromyalgia, Chronic back pain Derm: Herpes zoster - Past Surgical History Past Surgical History: Yes 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, 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 - Present Medications Home Medications: Ambulatory Orders Medication Instructions Recorded Confirmed Citalopram [CeleXA] 50 mg PO DAILY 02/04/15 07/30/17 Flecainide [Tambocar] 150 mg PO DAILY 02/04/15 07/30/17 Multivitamin,Ther and Minerals 1 tab PO DAILY 02/04/15 07/30/17 [Vitamin and Minerals] busPIRone [Buspar] 10 mg PO TID 02/04/15 07/30/17 Albuterol Sulf [Ventolin Hfa 1 - 2 puffs INH Q4HR PRN #1 inhaler 07/30/17 Inhaler] Oxycodone HCl/Acetaminophen 1 - 2 tab PO Q4H PRN #7 tablet 12/16/17 [Percocet 5-325 mg Tablet] Amox/Clav 875/125 [Augmentin] 1 each PO Q12H #20 tablet 03/03/18 Ibuprofen [Motrin] 400 mg PO Q6H PRN #20 tablet 03/03/18 Oxycodone HCl/Acetaminophen 1 each PO Q6HR PRN #10 tablet 03/03/18 [Percocet 5-325 mg Tablet] Promethazine [Phenergan] 25 mg PO Q6H PRN #10 tablet 03/03/18 - Allergies Allergies/Adverse Reactions: Allergies Allergy/AdvReac Type Severity Reaction Status Date / Time gabapentin Allergy Edema Verified 07/30/17 09:06 nortriptyline Allergy Hallucinati Verified 07/30/17 09:06 ons pregabalin [From Lyrica] Allergy Edema Verified 07/30/17 09:06 scallops Allergy Rash Verified 07/30/17 09:06 - Social History Does the pt smoke?: No Smoking Status: Former smoker Does the pt drink ETOH?: No Does the pt have substance abuse?: No - Immunizations Immunizations are current?: Yes - POLST Patient has POLST: No PD ED PE NORMAL - Vitals Vital signs reviewed: Yes - General General: Alert and oriented X 3 - HEENT HEENT: Atraumatic - Neck Neck: Supple, no meningeal sign - Cardiac Cardiac: RRR - Respiratory Respiratory: No respiratory distress, Clear bilaterally - Abdomen Abdomen: Soft, Other (TTP entire left side s rebound or guarding, no pulsatile mass, more sig suprapubic pain still s peritoneal signs) - Back Back: No: No CVA TTP (L CVA TTP) - Extremities Extremities: No deformity - Neuro Neuro: Alert and oriented X 3 Results - Vitals Vitals: Vital Signs - 24 hr 03/03/18 03/03/18 06:35 07:37 Temperature 36.7 C Heart Rate 83 67 Respiratory 18 16 Rate Blood Pressure 139/78 H 125/90 H O2 Saturation 99 100 Oxygen O2 Source Room air - Labs Labs: Laboratory Tests 03/03/18 06:45 Urine Color DARK YELLOW Urine Clarity CLOUDY Urine pH 6.0 Ur Specific [place] 1.025 Urine Protein 100 H Urine Glucose (UA) NEGATIVE Urine Ketones NEGATIVE Urine Occult Blood LARGE H Urine Nitrite POSITIVE H Urine Bilirubin NEGATIVE Urine Urobilinogen 1 (NORMAL) Ur Leukocyte Esterase SMALL H Urine RBC TNTC H Urine WBC >25 H Urine WBC Clumps PRESENT Ur Squamous Epith Cells RARE Squamous Urine Bacteria Moderate H Ur Microscopic Review INDICATED Urine Culture Comments INDICATED Urine HCG, Qual NEGATIVE - Rads (name of study) CT AP Radiology: See rad report (no hydro, no stones, s/p gastric bypass without obstruction or inflammatory process, no free air, nl appendix) PD MEDICAL DECISION MAKING - ED course ED course: pyelo given hematuria by rpeort got CT to rule out stone - none seen given rocephin in IV hemodynamically stable feel can tx as outpt attention coding / billing - pt is s/p hyst and did not need the HCG ordered prior to my arrival - please do not charge pt for same - Sepsis Event Vital Signs: Vital Signs - 24 hr 03/03/18 03/03/18 06:35 07:37 Temperature 36.7 C Heart Rate 83 67 Respiratory 18 16 Rate Blood Pressure 139/78 H 125/90 H O2 Saturation 99 100 Oxygen O2 Source Room air Departure - Departure Disposition: Home, Self Care Clinical Impression: Pyelonephritis Condition: Good Instructions: ED Kidney Infec Female Follow-Up: Ana Cheung ARNP [Primary Care Provider] - Prescriptions: Oxycodone HCl/Acetaminophen [Percocet 5-325 mg Tablet] 1 each PO Q6HR PRN #10 tablet PRN Reason: Severe Pain Amox/Clav 875/125 [Augmentin] 1 each PO Q12H #20 tablet Ibuprofen [Motrin] 400 mg PO Q6H PRN #20 tablet PRN Reason: Pain Promethazine [Phenergan] 25 mg PO Q6H PRN #10 tablet PRN Reason: vomiting Comments: The CT scan did not show any kidney stones So it is safe to treat your kidney infection as an outpatient at this time We gave you a dose of IV antibiotics in the ER and I have prescribed 10 days of oral antibiotics. Drink plenty of fluids Follow up with your PMD Tuesday for a recheck Return to the ER if worse in any way - even with appropriate outpatient antibiotics, some patients get worse and need to be admitted for IV antibiotics A urine culture will be run and the ER staff will call you if the culture indicates a need to change antibiotics Forms: Activity restrictions
--- NOTE | 2018-03-03 09:24 | CT Report ---
Procedure Date: 03/03/2018 Accession Number: [id number] / [id number] Procedure: CT - Abdomen/Pelvis W/O CPT Code: FULL RESULT: EXAM: CT ABDOMEN AND PELVIS EXAM DATE: 03/03/2018 09:01 AM. CLINICAL HISTORY: L flank pain hematuria, infection. COMPARISONS: None. TECHNIQUE: Routine helical CT imaging was performed through the abdomen and pelvis. IV contrast: . Enteric contrast: No. Reconstructions: Coronal and sagittal. In accordance with CT protocol optimization, one or more of the following dose reduction techniques were utilized for this exam: automated exposure control, adjustment of mA and/or KV based on patient size, or use of iterative reconstructive technique. FINDINGS: Lung Bases: Unremarkable. Liver: Normal. No masses. Gallbladder/Bile Ducts: Unremarkable. Spleen: Normal. Pancreas: Normal. Adrenal Glands: Normal. Kidneys: Normal. No masses or hydronephrosis. Peritoneal Cavity/Bowel: Status post prior gastric bypass.. No free fluid, free air or adenopathy. No masses or acute inflammatory process. The cecum is located in the upper midabdomen. The appendix is well visualized and normal. Pelvic Organs: Normal. The bladder and visualized pelvic organs are within normal limits. Vasculature: No aneurysms or other significant abnormality. Bones: No significant abnormality. Other: None. IMPRESSION: 1. No hydronephrosis or renal calculus. No stones in the bladder. 2. Status post prior gastric bypass without obstruction or inflammatory process. 3. No free air or pelvis. 4. Appendix images normally. [facility]
[2018-03-03 09:55] VITALS: BP 112/68
== END 2018-03-03 10:08 | disposition home or self-care (01) ==
LOC: ED 06:31
DX: N12 Tubulo-interstitial nephritis, not specified as acute or chronic (principal); I10 Essential (primary) hypertension; Z86.711 Personal history of pulmonary embolism; Z98.84 Bariatric surgery status; Z90.710 Acquired absence of both cervix and uterus; Z87.891 Personal history of nicotine dependence
CPT/HCPCS: 36415; 74176; 81001; 81003; 81025; 87086; 87181; 96365; 96375; 99283

== ENCOUNTER 2018-03-23 17:33 | Emergency (ER) | payer OTHER ==
[2018-03-23 18:09] LABS: BILIRUBIN,URINE NEGATIVE (NEGATIVE); GLUCOSE, URINE (UA) NEGATIVE (NEGATIVE); KETONES,URINE (UA) NEGATIVE (NEGATIVE); LEUKOCYTE ESTERASE, URINE NEGATIVE (NEGATIVE); NITRITE,URINE NEGATIVE (NEGATIVE); OCCULT BLOOD,URINE SMALL (NEGATIVE); PROTEIN,URINE NEGATIVE (NEGATIVE); UROBILINOGEN,URINE 1 (NORMAL) E.U./dL (NORMAL)
[2018-03-23 18:13] LABS: CLARITY,URINE CLEAR (CLEAR); HCG UR QUAL NEGATIVE
[2018-03-23 18:21] LABS: BACTERIA,URINE None Seen /HPF (None Seen); RBC,URINE 0-5 /HPF (0-5); SQUAMOUS EPITHELIAL CELL,UR NONE SEEN (<= Few)
[2018-03-23] MEDS ORDERED: SODIUM CHLORIDE 0.9% 1,000 ML IV ONE (19:48)
[2018-03-23] MEDS ORDERED: ONDANSETRON 4 MG/2 ML VIAL IVP STA (19:49)
[2018-03-23 20:06] LABS: BASOPHILS # (AUTO) 0.1 10^3/uL (0.0-0.1); BASOPHILS % (AUTO) 0.8 %; EOSINOPHILS # (AUTO) 0.1 10^3/uL (0.0-0.7); HGB - HEMOGLOBIN 14.1 g/dL (12.0-16.0); LYMPHOCYTES # (AUTO) 2.2 10^3/uL (1.5-3.5); LYMPHOCYTES % (AUTO) 32.1 %; MEAN CORPUSCULAR HEMOGLOBIN 31.6 pg (27.0-31.0); MEAN CORPUSCULAR HGB CONC 33.7 g/dL (32.0-36.0); MEAN CORPUSCULAR VOLUME 93.8 fL (81.0-99.0); MEAN PLATELET VOLUME 8.2 fL (7.9-10.8); MONOCYTES # (AUTO) 0.7 10^3/uL (0.0-1.0); MONOCYTES % (AUTO) 9.7 %; NEUTROPHILS # (AUTO) 3.8 10^3/uL (1.5-6.6); NEUTROPHILS % (AUTO) 56.4 %; PLT - PLATELET COUNT 240 10^3/uL (130-450); RED BLOOD COUNT 4.48 10^6/uL (4.20-5.40); RED CELL DISTRIBUTION WIDTH 12.6 % (12.0-15.0); WHITE BLOOD COUNT 6.8 x10^3/uL (4.8-10.8)
[2018-03-23 20:17] LABS: ALBUMIN 4.1 g/dL (3.2-5.5); ALBUMIN/GLOBULIN RATIO 1.5 (1.0-2.2); BILIRUBIN,TOTAL 0.6 mg/dL (0.2-1.0); CALCIUM 9.1 mg/dL (8.5-10.3); CREATININE 0.7 mg/dL (0.4-1.0); TOTAL PROTEIN 6.9 g/dL (6.7-8.2)
--- NOTE | 2018-03-23 20:52 | ED Physician Documentation ---
History of Present Illness - Stated complaint Stated Complaint: R SIDE BK PX - Chief complaint Chief Complaint: Abd Pain - History obtained from History obtained from: Patient - Additonal information Additional information: 47-year-old female presents the emergency department with increasing right flank pain which radiates into her right upper abdomen. Symptoms have progressively worsened. Patient denies vomiting or lower abdominal pain. The patient does experience nausea with the symptoms. The patient denies fevers or chills. No triggering factors. No relieving factors. Symptoms are described as moderate Review of Systems Constitutional: denies: Fever, Chills Eyes: denies: Discharge Nose: denies: Congestion Throat: denies: Sore throat Cardiac: denies: Chest pain / pressure Respiratory: denies: Dyspnea GI: reports: Abdominal Pain : denies: Dysuria, Hematuria Skin: denies: Rash Musculoskeletal: denies: Neck pain Neurologic: denies: Generalized weakness PD PAST MEDICAL HISTORY - Past Medical History Past Medical History: Yes Cardiovascular: Hypertension, Pulmonary embolism, Arrhythmia Endocrine/Autoimmune: None GI: None VIDEO INTERN: None HEENT: Other Psych: Depression, Anxiety, Post traumatic stress disorder Musculoskeletal: Osteoarthritis, Fibromyalgia, Chronic back pain Derm: Herpes zoster - Past Surgical History Past Surgical History: Yes 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, 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 - Present Medications Home Medications: Ambulatory Orders Medication Instructions Recorded Confirmed Citalopram [CeleXA] 50 mg PO DAILY 02/04/15 07/30/17 Flecainide [Tambocar] 150 mg PO DAILY 02/04/15 07/30/17 Multivitamin,Ther and Minerals 1 tab PO DAILY 02/04/15 07/30/17 [Vitamin and Minerals] busPIRone [Buspar] 10 mg PO TID 02/04/15 07/30/17 Albuterol Sulf [Ventolin Hfa 1 - 2 puffs INH Q4HR PRN #1 inhaler 07/30/17 Inhaler] Ibuprofen [Motrin] 400 mg PO Q6H PRN #20 tablet 03/03/18 Promethazine [Phenergan] 25 mg PO Q6H PRN #10 tablet 03/03/18 Naltrexone [Nalt[employer] 03/23/18 Monohydrate] - Allergies Allergies/Adverse Reactions: Allergies Allergy/AdvReac Type Severity Reaction Status Date / Time gabapentin Allergy Edema Verified 07/30/17 09:06 nortriptyline Allergy Hallucinati Verified 07/30/17 09:06 ons pregabalin [From Lyrica] Allergy Edema Verified 07/30/17 09:06 scallops Allergy Rash Verified 03/23/18 17:39 - Social History Does the pt smoke?: No Smoking Status: Current every day smoker Does the pt drink ETOH?: Yes ETOH Use: Wine Does the pt have substance abuse?: Yes Substance Use and Type: Marijuana - Immunizations Immunizations are current?: Yes - POLST Patient has POLST: No PD ED PE NORMAL - General General: Alert and oriented X 3, No acute distress - HEENT HEENT: Atraumatic, PERRL, EOMI, Ears normal - Neck Neck: Supple, no meningeal sign - Cardiac Cardiac: RRR, Strong equal pulses - Respiratory Respiratory: No respiratory distress, Clear bilaterally - Abdomen Abdomen: Soft, Non distended, Other (Right flank tenderness and tenderness in the epigastrium. No rebound or peritoneal signs) - Back Back: No spinal TTP - Derm Derm: Normal color, No rash - Extremities Extremities: No deformity, No edema - Neuro Neuro: Alert and oriented X 3, Normal speech - Psych Psych: Normal mood Results - Vitals Vitals: Vital Signs - 24 hr 03/23/18 03/23/18 17:36 19:37 Temperature 36.5 C 36.9 C Heart Rate 85 73 Respiratory 20 16 Rate Blood Pressure 134/92 H 128/83 H O2 Saturation 99 100 Oxygen O2 Source Room air - Labs Labs: Laboratory Tests 03/23/18 03/23/18 03/23/18 18:00 19:58 19:58 WBC 6.8 RBC 4.48 Hgb 14.1 Hct 42.0 MCV 93.8 MCH 31.6 H MCHC 33.7 RDW 12.6 Plt Count 240 MPV 8.2 Neut # (Auto) 3.8 Lymph # (Auto) 2.2 [place] # (Auto) 0.7 Eos # (Auto) 0.1 Baso # (Auto) 0.1 Absolute Nucleated RBC 0.00 Nucleated RBC % 0.0 Sodium 136 Potassium 3.8 Chloride 102 Carbon Dioxide 27 Anion Gap 7.0 BUN 9 Creatinine 0.7 Estimated GFR (MDRD) 89 Glucose 114 H Calcium 9.1 Total Bilirubin 0.6 AST 33 ALT 34 Alkaline Phosphatase 121 Total Protein 6.9 Albumin 4.1 Globulin 2.8 Albumin/Globulin Ratio 1.5 Lipase 20 L Urine Color YELLOW Urine Clarity CLEAR Urine pH 6.0 Ur Specific [place] <=1.005 Urine Protein NEGATIVE Urine Glucose (UA) NEGATIVE Urine Ketones NEGATIVE Urine Occult Blood SMALL H Urine Nitrite NEGATIVE Urine Bilirubin NEGATIVE Urine Urobilinogen 1 (NORMAL) Ur Leukocyte Esterase NEGATIVE Urine RBC 0-5 Urine WBC 0-3 Ur Squamous Epith Cells NONE SEEN Urine Bacteria None Seen Ur Microscopic Review INDICATED Urine Culture Comments NOT INDICATED Urine HCG, Qual NEGATIVE - Rads (name of study) CT abdomen and pelvis Radiology: Final report received, See rad report (Depression: 1. No urolithiasis or hydronephrosis 2. Normal appendix 3. Previous bowel surgery without obstruction 4. Multiple small fat containing ventral hernias in the upper abdomen) PD MEDICAL DECISION MAKING - ED course ED course: Reevaluation the patient is resting comfortably and has no significant symptoms. The patient's workup does not reveal clear etiology for the source of her symptoms but the patient appears appropriate for discharge home and further workup as an outpatient. I recommended close follow-up with primary care and advised that she may need a outpatient referral to GI for further workup of her symptoms. The patient understands and agrees. I discussed worsening signs and recommended returning to the emergency department immediately for worsening or any concerns. - Sepsis Event Vital Signs: Vital Signs - 24 hr 03/23/18 03/23/18 17:36 19:37 Temperature 36.5 C 36.9 C Heart Rate 85 73 Respiratory 20 16 Rate Blood Pressure 134/92 H 128/83 H O2 Saturation 99 100 Oxygen O2 Source Room air Departure - Departure Disposition: 01 Home, Self Care Clinical Impression: Flank pain Abdominal pain Qualifiers: Abdominal location: right lower quadrant Qualified Code(s): R10.31 - Right lower quadrant pain Condition: Good Instructions: Abdominal Pain Follow-Up: Ana Cheung ARNP [Primary Care Provider] - Within 1 week Comments: Please return to the emergency department for worsening symptoms or any concerns
--- NOTE | 2018-03-23 21:20 | CT Report ---
Procedure Date: 03/23/2018 Accession Number: [id number] / [id number] Procedure: CT - Abdomen/Pelvis W/O CPT Code: FULL RESULT: EXAM: CT ABDOMEN AND PELVIS EXAM DATE: 03/23/2018 08:53 PM. CLINICAL HISTORY: Right flank pain. COMPARISONS: ABDOMEN/PELVIS W/O 03/03/2018 8:56 AM. TECHNIQUE: Routine helical CT imaging was performed through the abdomen and pelvis. IV contrast: No. Enteric contrast: No. Reconstructions: Coronal and sagittal. In accordance with CT protocol optimization, one or more of the following dose reduction techniques were utilized for this exam: automated exposure control, adjustment of mA and/or KV based on patient size, or use of iterative reconstructive technique. FINDINGS: Lung Bases: Unremarkable. Liver: Normal in size and contour. Gallbladder/Bile Ducts: The gallbladder is surgically absent. Spleen: Normal in size. Pancreas: Normal in size and contour. Adrenal Glands: Normal. Kidneys: No kidney stones or hydronephrosis. There is a left flank phlebolith. No ureter stones. Peritoneal Cavity/Bowel: There are findings of previous bowel surgery. No abnormal fluid or gas collection. There are multiple small fat-containing midline hernias in the upper abdomen. No herniation of bowel. The appendix appears normal. 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 Pelvic Organs: Uterus is absent. Urinary bladder appears unremarkable. Vasculature: No aneurysms or other significant abnormality. Bones: No significant abnormality. Other: None. IMPRESSION: 1. No urolithiasis or hydronephrosis. 2. Normal appendix. 3. Previous bowel surgery without obstruction. 4. Multiple small fat-containing ventral hernias in the upper abdomen. RADIA
[2018-03-23 21:53] VITALS: BP 125/70
== END 2018-03-23 21:57 | disposition home or self-care (01) ==
LOC: ED 17:33
DX: R10.31 Right lower quadrant pain (principal); I10 Essential (primary) hypertension; F17.200 Nicotine dependence, unspecified, uncomplicated; Z86.711 Personal history of pulmonary embolism
CPT/HCPCS: 36415; 74176; 80053; 81001; 81003; 81025; 83690; 85025; 87086; 96361; 96374; 99283

== ENCOUNTER 2018-03-27 11:17 | Emergency (ER) | payer OTHER ==
[2018-03-27 11:55] LABS: BILIRUBIN,URINE NEGATIVE (NEGATIVE); GLUCOSE, URINE (UA) NEGATIVE (NEGATIVE); KETONES,URINE (UA) NEGATIVE (NEGATIVE); LEUKOCYTE ESTERASE, URINE SMALL (NEGATIVE); NITRITE,URINE NEGATIVE (NEGATIVE); OCCULT BLOOD,URINE LARGE (NEGATIVE); PROTEIN,URINE NEGATIVE (NEGATIVE); UROBILINOGEN,URINE 0.2 (NORMAL) E.U./dL (NORMAL)
[2018-03-27 12:09] LABS: CLARITY,URINE CLEAR (CLEAR); HCG UR QUAL NEGATIVE
[2018-03-27 12:11] LABS: RBC,URINE 0-5 /HPF (0-5); WBC CLUMPS,URINE PRESENT
[2018-03-27 12:12] LABS: BACTERIA,URINE Rare /HPF (None Seen); SQUAMOUS EPITHELIAL CELL,UR FEW Squamous (<= Few)
--- NOTE | 2018-03-27 13:07 | ED Physician Documentation ---
PD HPI FEMALE - Stated complaint Stated Complaint: FEMALE - Chief complaint Chief Complaint: Abd Pain - History obtained from History obtained from: Patient - History of Present Illness Timing - onset: Yesterday Timing - details: Abrupt onset, Still present Associated symptoms: Dysuria, Urinary frequency, Hematuria. No: Fever, Vaginal pain, Vaginal bleeding, Vaginal discharge, Genital sore/lesion Contributing factors: No: Exposed to STD Similar symptoms before: Diagnosis (uti) Review of Systems Constitutional: denies: Fever, Chills, Myalgias Nose: denies: Rhinorrhea / runny nose, Congestion Throat: denies: Sore throat Respiratory: denies: Cough GI: reports: Nausea. denies: Abdominal Pain, Vomiting, Diarrhea : reports: Dysuria, Frequency, Hematuria. 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 HEENT: Other Psych: Depression, Anxiety, Post traumatic stress disorder Musculoskeletal: Osteoarthritis, Fibromyalgia, Chronic back pain Derm: Herpes zoster - Past Surgical History Past Surgical History: Yes General: Gastric surgery /KEY BED INSTALLER: section, 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 - Present Medications Home Medications: Ambulatory Orders Medication Instructions Recorded Confirmed Citalopram [CeleXA] 50 mg PO DAILY 02/04/15 07/30/17 Flecainide [Tambocar] 150 mg PO DAILY 02/04/15 07/30/17 Multivitamin,Ther and Minerals 1 tab PO DAILY 02/04/15 07/30/17 [Vitamin and Minerals] busPIRone [Buspar] 10 mg PO TID 02/04/15 07/30/17 Albuterol Sulf [Ventolin Hfa 1 - 2 puffs INH Q4HR PRN #1 inhaler 07/30/17 Inhaler] Ibuprofen [Motrin] 400 mg PO Q6H PRN #20 tablet 03/03/18 Promethazine [Phenergan] 25 mg PO Q6H PRN #10 tablet 03/03/18 Naltrexone [Naltrexone Base 03/23/18 Monohydrate] Atenolol [Tenormin] 03/27/18 Flecainide [Tambocar] 03/27/18 Fluconazole [Diflucan] 150 mg PO ONCE #1 tablet 03/27/18 Naproxen 375 mg PO BID #20 tablet 03/27/18 Sulfamethox/Trimeth 800/160 1 each PO BID #14 tablet 03/27/18 [Bactrim Ds 800/160] - Allergies Allergies/Adverse Reactions: Allergies Allergy/AdvReac Type Severity Reaction Status Date / Time gabapentin Allergy Edema Verified 07/30/17 09:06 nortriptyline Allergy Hallucinati Verified 07/30/17 09:06 ons pregabalin [From Lyrica] Allergy Edema Verified 07/30/17 09:06 scallops Allergy Rash Verified 03/27/18 11:26 - Social History Does the pt smoke?: No Smoking Status: Current every day smoker Does the pt drink ETOH?: Yes Does the pt have substance abuse?: Yes - Immunizations Immunizations are current?: Yes - POLST Patient has POLST: No PD ED PE NORMAL - Vitals Vital signs reviewed: Yes - General General: Alert and oriented X 3, No acute distress, Well developed/nourished - Abdomen Abdomen: Soft, Non tender - Female Female : Deferred - Rectal Rectal: Deferred - Back Back: No CVA TTP - Derm Derm: Normal color, Warm and dry Results - Vitals Vitals: Oxygen O2 Source Room air - Labs Labs: Microbiology 03/27/18 11:30 Urine Culture - Final Urine,Clean Catch ESBL-producing E COLI Laboratory Tests 03/27/18 11:30 Urine Color YELLOW Urine Clarity CLEAR Urine pH 6.0 Ur Specific [place] <=1.005 Urine Protein NEGATIVE Urine Glucose (UA) NEGATIVE Urine Ketones NEGATIVE Urine Occult Blood LARGE H Urine Nitrite NEGATIVE Urine Bilirubin NEGATIVE Urine Urobilinogen 0.2 (NORMAL) Ur Leukocyte Esterase SMALL H Urine RBC 0-5 Urine WBC >25 H Urine WBC Clumps PRESENT Ur Squamous Epith Cells FEW Squamous Urine Bacteria Rare Ur Microscopic Review INDICATED Urine Culture Comments INDICATED Urine HCG, Qual NEGATIVE PD MEDICAL DECISION MAKING - ED course Complexity details: reviewed results, considered differential, d/w patient - Sepsis Event Vital Signs: Oxygen O2 Source Room air Departure - Departure Disposition: 01 Home, Self Care Clinical Impression: Dysuria UTI (urinary tract infection) Qualifiers: Urinary tract infection type: acute cystitis Hematuria presence: with hematuria Qualified Code(s): N30.01 - Acute cystitis with hematuria Condition: Stable Record reviewed to determine appropriate education?: Yes Instructions: ED UTI Cystitis Female Follow-Up: Ana Cheung ARNP [Primary Care Provider] - Prescriptions: Fluconazole [Diflucan] 150 mg PO ONCE #1 tablet Naproxen 375 mg PO BID #20 tablet Sulfamethox/Trimeth 800/160 [Bactrim Ds 800/160] 1 each PO BID #14 tablet Comments: Drink lots of fluids. Bactrim twice a day for a week for the infection. Naproxen twice daily for a week for inflammation. Continue the phenazopyridine as needed for discomfort. Recheck if not improved over the next 2-3 days. Discharge Date/Time: 03/27/18 13:51
[2018-03-27] MEDS ORDERED: IBUPROFEN 600 MG TABLET PO STA (13:34)
[2018-03-27] MEDS ORDERED: SULFAMETH/TRIMETH DS 800/160 MG TABLET PO STA (13:34)
[2018-03-27 13:43] VITALS: BP 120/85
== END 2018-03-27 13:51 | disposition home or self-care (01) ==
LOC: ED 11:17
DX: R30.0 Dysuria (principal); N30.01 Acute cystitis with hematuria; I10 Essential (primary) hypertension; F17.200 Nicotine dependence, unspecified, uncomplicated; Z86.711 Personal history of pulmonary embolism
CPT/HCPCS: 81001; 81025; 87086; 87181; 99283; A9270; 81003

== ENCOUNTER 2018-03-31 06:35 | Emergency (ER) | payer OTHER ==
[2018-03-31 07:06] LABS: BASOPHILS # (AUTO) 0.1 10^3/uL (0.0-0.1); EOSINOPHILS # (AUTO) 0.1 10^3/uL (0.0-0.7); EOSINOPHILS % (AUTO) 1.6 %; HGB - HEMOGLOBIN 14.3 g/dL (12.0-16.0); LYMPHOCYTES # (AUTO) 2.3 10^3/uL (1.5-3.5); LYMPHOCYTES % (AUTO) 30.7 %; MEAN CORPUSCULAR HEMOGLOBIN 31.4 pg (27.0-31.0); MEAN CORPUSCULAR HGB CONC 33.9 g/dL (32.0-36.0); MEAN CORPUSCULAR VOLUME 92.7 fL (81.0-99.0); MEAN PLATELET VOLUME 8.2 fL (7.9-10.8); MONOCYTES # (AUTO) 0.7 10^3/uL (0.0-1.0); MONOCYTES % (AUTO) 9.3 %; NEUTROPHILS # (AUTO) 4.2 10^3/uL (1.5-6.6); NEUTROPHILS % (AUTO) 57.4 %; PLT - PLATELET COUNT 244 10^3/uL (130-450); RED BLOOD COUNT 4.56 10^6/uL (4.20-5.40); RED CELL DISTRIBUTION WIDTH 12.7 % (12.0-15.0); WHITE BLOOD COUNT 7.3 x10^3/uL (4.8-10.8)
[2018-03-31 07:22] LABS: ALBUMIN 3.8 g/dL (3.2-5.5); ALBUMIN/GLOBULIN RATIO 1.2 (1.0-2.2); BILIRUBIN,TOTAL 0.9 mg/dL (0.2-1.0); CALCIUM 8.8 mg/dL (8.5-10.3); CREATININE 0.9 mg/dL (0.4-1.0)
--- NOTE | 2018-03-31 07:30 | XRAY Report ---
Procedure Date: 03/31/2018 Accession Number: [id number] / [id number] Procedure: XR - Chest 1 View X-Ray CPT Code: 86890 FULL RESULT: EXAM: CHEST RADIOGRAPHY EXAM DATE: 03/31/2018 07:17 AM. CLINICAL HISTORY: Chest pain. COMPARISON: 09/02/2015. 12/16/2017. TECHNIQUE: 1 view. FINDINGS: Lungs/Pleura: No focal opacities evident. No pleural effusion. No pneumothorax. Mediastinum: Within exam limitations, the cardiomediastinal contour is normal. Other: No acute osseous abnormalities. IMPRESSION: 1. No acute disease in the chest. RADIA
[2018-03-31] MEDS ORDERED: MAG HYDROX/AL HYDROX/SIMETH 30 ML UDC PO STA ×2 (08:11→09:15)
[2018-03-31] MEDS ORDERED: LIDOCAINE VISCOUS 2% 15 ML UDC MM STA (08:12)
--- NOTE | 2018-03-31 08:12 | ED Physician Documentation ---
PD HPI CHEST PAIN - Stated complaint Stated Complaint: SOA,LIGHTHEADED,CP - Chief complaint Chief Complaint: Cardiac - History obtained from History obtained from: Patient - History of Present Illness Timing - onset: Today (Just prior to arrival.) Timing - onset during: Light activity (Driving on the highway.) Timing - details: Still present Pain level now: 6 Quality: Tightness Location: Substernal Associated symptoms: Shortness of air (Slight). No: Diaphoresis, Nausea, Vomiting Similar symptoms before: No diagnosis (She reports similar episode yesterday, lasting for about 3 hours.) Recently seen: Emergency Dept (She was seen in the emergency room 4 days ago and diagnosed with recurrent urinary tract infection.) - Additional information Additional information: The patient is a 47-year-old female who presents with substernal chest "squeezing" that started while driving on the highway just prior to arrival. She reports feeling somewhat dizzy, and slightly short of breath. She denies nausea, vomiting, or diaphoresis. She reports having a similar episode yesterday that lasted for about 3 hours before resolving spontaneously. She denies any recent fever, cough, abdominal pain, or dysuria. She was seen in the emergency department here 4 days ago and diagnosed with recurrent urinary tract infection. She was started on Bactrim at that time, and review of the culture reveals E. coli that is sensitive to trimethoprim sulfamethoxazole. She has no history of similar symptoms prior to yesterday. Past medical history is significant for bariatric surgery 10 years ago. Review of Systems Constitutional: denies: Fever, Fatigue Ears: denies: Tinnitus/ringing Nose: denies: Congestion Throat: denies: Sore throat Cardiac: reports: Chest pain / pressure. denies: Palpitations Respiratory: reports: Dyspnea (slight). 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 HEENT: Other Psych: Depression, Anxiety, Post traumatic stress disorder Musculoskeletal: Osteoarthritis, Fibromyalgia, Chronic back pain Derm: Herpes zoster - Past Surgical History Past Surgical History: Yes General: Gastric surgery /LAB SCIENTIST: section, 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 - Present Medications Home Medications: Ambulatory Orders Medication Instructions Recorded Confirmed Citalopram [CeleXA] 50 mg PO DAILY 02/04/15 07/30/17 Flecainide [Tambocar] 150 mg PO DAILY 02/04/15 07/30/17 Multivitamin,Ther and Minerals 1 tab PO DAILY 02/04/15 07/30/17 [Vitamin and Minerals] busPIRone [Buspar] 10 mg PO TID 02/04/15 07/30/17 Albuterol Sulf [Ventolin Hfa 1 - 2 puffs INH Q4HR PRN #1 inhaler 07/30/17 Inhaler] Ibuprofen [Motrin] 400 mg PO Q6H PRN #20 tablet 03/03/18 Promethazine [Phenergan] 25 mg PO Q6H PRN #10 tablet 03/03/18 Naltrexone [Naltrexone Base 03/23/18 Monohydrate] Atenolol [Tenormin] 03/27/18 Flecainide [Tambocar] 03/27/18 Fluconazole [Diflucan] 150 mg PO ONCE #1 tablet 03/27/18 Naproxen 375 mg PO BID #20 tablet 03/27/18 Sulfamethox/Trimeth 800/160 1 each PO BID #14 tablet 03/27/18 [Bactrim Ds 800/160] - Allergies Allergies/Adverse Reactions: Allergies Allergy/AdvReac Type Severity Reaction Status Date / Time gabapentin Allergy Edema Verified 03/31/18 06:53 nortriptyline Allergy Hallucinati Verified 03/31/18 06:53 ons pregabalin [From Lyrica] Allergy Edema Verified 03/31/18 06:53 scallops Allergy Rash Verified 03/31/18 06:53 - Social History Does the pt smoke?: No Smoking Status: Never smoker Does the pt drink ETOH?: Yes Does the pt have substance abuse?: Yes - Immunizations Immunizations are current?: Yes - POLST Patient has POLST: No PD ED PE NORMAL - Vitals Vital signs reviewed: Yes (hypertensive) - General General: Alert and oriented X 3, Other (Obese) - HEENT HEENT: Atraumatic, Moist mucous membranes, Pharynx benign - Neck Neck: Supple, no meningeal sign, No adenopathy, No JVD - Cardiac Cardiac: RRR, No murmur - Respiratory Respiratory: No respiratory distress, Clear bilaterally - Abdomen Abdomen: Normal bowel sounds, Soft, Other (Epigastric tenderness to palpation, without rebound or guarding.) - Back Back: No CVA TTP - Derm Derm: No rash - Extremities Extremities: No edema, No calf tenderness / cord - Neuro Neuro: Alert and oriented X 3, No motor deficit, Normal speech Results - Vitals Vitals: Vital Signs - 24 hr 03/31/18 03/31/18 03/31/18 09:21 09:25 09:59 Temperature Heart Rate 74 75 73 Respiratory 18 12 11 L Rate Blood Pressure 121/80 105/67 110/68 O2 Saturation 98 98 97 03/31/18 10:58 Temperature 36.6 C Heart Rate 74 Respiratory 13 Rate Blood Pressure 106/71 O2 Saturation 97 Oxygen O2 Source Room air - EKG (time done) 06:50 Rate: Rate (enter#) (89) Rhythm: NSR [place]: Normal Intervals: Normal NC, Other (Nonspecific intraventricular conduction delay.) Ischemia: Non specific changes (T-wave flattening in inferior leads II, III, and aVF.) Other comments: Other comments (Intraventricular conduction delay, with QRS duration of 0.124 seconds.) Compare to prior EKG: Unchanged from prior EKG Computer interpretation: Agree with computer - Labs Labs: Laboratory Tests 03/31/18 03/31/18 03/31/18 06:55 06:55 06:55 WBC 7.3 RBC 4.56 Hgb 14.3 Hct 42.3 MCV 92.7 MCH 31.4 H MCHC 33.9 RDW 12.7 Plt Count 244 MPV 8.2 Neut # (Auto) 4.2 Lymph # (Auto) 2.3 [place] # (Auto) 0.7 Eos # (Auto) 0.1 Baso # (Auto) 0.1 Absolute Nucleated RBC 0.00 Nucleated RBC % 0.0 Sodium 134 L Potassium 3.4 L Chloride 101 Carbon Dioxide 24 Anion Gap 9.0 BUN 12 Creatinine 0.9 Estimated GFR (MDRD) 67 L Glucose 195 H Calcium 8.8 Total Bilirubin 0.9 AST 37 ALT 40 Alkaline Phosphatase 122 H Troponin I < 0.04 Total Protein 7.0 Albumin 3.8 Globulin 3.2 Albumin/Globulin Ratio 1.2 Lipase 20 L - Rads (name of study) CXR Radiology: Prelim report reviewed, EMP read contemporaneously, See rad report ( Normal chest radiography.) PD MEDICAL DECISION MAKING - ED course Complexity details: reviewed old records, reviewed results, re-evaluated patient , considered differential, d/w patient ED course: The patient's presentation is significant for substernal chest pain that is most likely due to gastroesophageal inflammation. Cardiac ischemia was considered. There are no acute ischemic abnormalities on EKG, and troponin is normal. Her symptoms started after drinking coffee and eating a banana this morning. Treatment in the emergency department included administration of sublingual nitroglycerin which did not improve her symptoms. A GI cocktail was administered, and she did get improvement, and subsequently total relief of her discomfort. I discussed with her the likely etiology of her symptoms, symptomatic relief and outpatient follow-up, as well as potentially worrisome signs or symptoms that should prompt reevaluation in the emergency department. - Sepsis Event Vital Signs: Vital Signs - 24 hr 03/31/18 03/31/18 03/31/18 09:21 09:25 09:59 Temperature Heart Rate 74 75 73 Respiratory 18 12 11 L Rate Blood Pressure 121/80 105/67 110/68 O2 Saturation 98 98 97 03/31/18 10:58 Temperature 36.6 C Heart Rate 74 Respiratory 13 Rate Blood Pressure 106/71 O2 Saturation 97 Oxygen O2 Source Room air Departure - Departure Disposition: 01 Home, Self Care Clinical Impression: Atypical chest pain GERD (gastroesophageal reflux disease) Qualifiers: Esophagitis presence: without esophagitis Qualified Code(s): K21.9 - Gastro- esophageal reflux disease without esophagitis Condition: Stable Instructions: ED GERD Follow-Up: Ana Cheung ARNP [Primary Care Provider] - Comments: Minimize coffee, jovany, and alcohol. Use liquid antacid, such as Maalox or Mylanta, if you develop recurrent symptoms. Follow up with your primary physician within 1-2 weeks. Call to schedule appointment. Return to the emergency department if you develop increasing chest discomfort, shortness of breath, or otherwise worsening symptoms. Discharge Date/Time: 03/31/18 10:59
[2018-03-31] MEDS ORDERED: NITROGLYCERIN SL 0.4 MG TABLET SL STA (08:54)
[2018-03-31 10:59] VITALS: BP 106/71
== END 2018-03-31 10:59 | disposition home or self-care (01) ==
LOC: ED 06:35
DX: R07.89 Other chest pain (principal); K21.9 Gastro-esophageal reflux disease without esophagitis; I10 Essential (primary) hypertension; I49.9 Cardiac arrhythmia, unspecified; Z86.711 Personal history of pulmonary embolism; M79.7 Fibromyalgia; M19.90 Unspecified osteoarthritis, unspecified site
CPT/HCPCS: 36415; 71045; 80053; 83690; 84484; 85025; 93005; 99284; A9270

== ENCOUNTER 2018-05-27 12:43 | Emergency (ER) | payer OTHER ==
--- NOTE | 2018-05-27 13:30 | XRAY Report ---
Reason: SOA Procedure Date: 05/27/2018 Accession Number: [id number] / [id number] Procedure: XR - Chest 1 View X-Ray CPT Code: 18080 FULL RESULT: EXAM: CHEST RADIOGRAPHY EXAM DATE: 05/27/2018 01:18 PM. CLINICAL HISTORY: SOA. COMPARISON: 03/31/2018. TECHNIQUE: 1 view. FINDINGS: Lungs/Pleura: No focal opacities evident. No pleural effusion. No pneumothorax. Mediastinum: Within exam limitations, the cardiomediastinal contour is normal. Other: None. IMPRESSION: Normal single view chest. RADIA
[2018-05-27] MEDS ORDERED: IPRATROPIUM/ALBUTEROL 3 ML NEB INH STA (13:31)
--- NOTE | 2018-05-27 14:00 | ED Physician Documentation ---
History of Present Illness - Stated complaint Stated Complaint: SOA/CP - Chief complaint Chief Complaint: Cardiac - History obtained from History obtained from: Patient - History of Present Illness Timing: How many days ago (2) Pain level max: 4 Pain level now: 4 Improved by: nothing Worsened by: cough - Additonal information Additional information: Patient is a 47-year-old female who presents to the emergency department with cough and shortness of air, worsening today. States use her inhaler this morning without relief. States it feels like a tightness in the center of her chest. States worse with coughing. Nonradiating. Does have mild dyspnea. No vomiting. Nothing makes it better. States has had similar symptoms in the past with no cause found. Patient states that she has been worked up for pulmonary embolus in the past, but no pulmonary embolus was ever found on imaging. She states that they had her on blood thinners for 3 days in the hospital and then sent her home. Has never been on blood thinner since that time. There has never been a pulmonary embolism found on her testing Review of Systems Ten Systems: 10 systems reviewed and negative Constitutional: reports: Fever (subjective). denies: Chills Ears: denies: Ear pain Nose: reports: Rhinorrhea / runny nose. 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 HEENT: Other Psych: Depression, Anxiety, Post traumatic stress disorder Musculoskeletal: Osteoarthritis, Fibromyalgia, Chronic back pain Derm: Herpes zoster - Past Surgical History Past Surgical History: Yes General: Gastric surgery /FIELD ORGANIZER: section, 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 - Present Medications Home Medications: Ambulatory Orders Medication Instructions Recorded Confirmed Citalopram [CeleXA] 50 mg PO DAILY 02/04/15 07/30/17 Multivitamin,Ther and Minerals 1 tab PO DAILY 02/04/15 07/30/17 [Vitamin and Minerals] busPIRone [Buspar] 10 mg PO TID 02/04/15 07/30/17 Albuterol Sulf [Ventolin Hfa 1 - 2 puffs INH Q4HR PRN #1 inhaler 07/30/17 Inhaler] Ibuprofen [Motrin] 400 mg PO Q6H PRN #20 tablet 03/03/18 Naltrexone [Naltrexone Base 4.5 mg PO DAILY 03/23/18 Monohydrate] Atenolol [Tenormin] 03/27/18 Flecainide [Tambocar] 1 tab PO DAILY 03/27/18 Naproxen 375 mg PO BID PRN 05/27/18 predniSONE [Prednisone] 40 mg PO DAILY #10 tablet 05/27/18 - Allergies Allergies/Adverse Reactions: Allergies Allergy/AdvReac Type Severity Reaction Status Date / Time gabapentin Allergy Edema Verified 05/27/18 12:52 nortriptyline Allergy Hallucinati Verified 05/27/18 12:52 ons pregabalin [From Lyrica] Allergy Edema Verified 05/27/18 12:52 scallops Allergy Rash Verified 05/27/18 12:52 - Social History Does the pt smoke?: No Smoking Status: Never smoker Does the pt drink ETOH?: Yes Does the pt have substance abuse?: Yes - Immunizations Immunizations are current?: Yes - POLST Patient has POLST: No PD ED PE NORMAL - Vitals Vital signs reviewed: Yes - General General: Alert and oriented X 3, No acute distress - HEENT HEENT: Moist mucous membranes - Neck Neck: Supple, no meningeal sign - Cardiac Cardiac: RRR, Strong equal pulses - Respiratory Respiratory: No respiratory distress, Other (mild wheezing B) - Abdomen Abdomen: Soft, Non tender, Non distended - Derm Derm: Warm and dry - Extremities Extremities: No edema, No calf tenderness / cord - Neuro Neuro: Alert and oriented X 3 - Psych Psych: Normal mood, Normal affect Results - Vitals Vitals: Vital Signs - 24 hr 05/27/18 05/27/18 05/27/18 12:47 13:42 14:45 Temperature 36.5 C Heart Rate 78 69 78 Respiratory 16 16 20 Rate Blood Pressure 148/100 H 132/79 H O2 Saturation 100 100 05/27/18 16:01 Temperature Heart Rate 82 Respiratory 18 Rate Blood Pressure 106/79 O2 Saturation 98 Oxygen O2 Source Room air - EKG (time done) 1247 Rate: Rate (enter#) (74) Rhythm: NSR [place]: Normal Intervals: Normal [place] QRS: Normal Ischemia: Non specific changes - Labs Labs: Laboratory Tests 05/27/18 05/27/18 05/27/18 13:56 13:56 13:56 WBC 8.8 RBC 4.62 Hgb 14.4 Hct 42.3 MCV 91.7 MCH 31.2 H MCHC 34.1 RDW 12.6 Plt Count 229 MPV 7.9 Neut # (Auto) 5.1 Lymph # (Auto) 2.8 [place] # (Auto) 0.7 Eos # (Auto) 0.1 Baso # (Auto) 0.1 Absolute Nucleated RBC 0.01 Nucleated RBC % 0.1 D-Dimer Sodium 136 Potassium 4.3 Chloride 102 Carbon Dioxide 25 Anion Gap 9.0 BUN 9 Creatinine 0.8 Estimated GFR (MDRD) 77 L Glucose 96 Calcium 9.2 Total Bilirubin 0.5 AST 37 ALT 35 Alkaline Phosphatase 135 H Troponin I < 0.04 Total Protein 6.7 Albumin 3.8 Globulin 2.9 Albumin/Globulin Ratio 1.3 Lipase 19 L 05/27/18 13:56 WBC RBC Hgb Hct MCV MCH MCHC RDW Plt Count MPV Neut # (Auto) Lymph # (Auto) [place] # (Auto) Eos # (Auto) Baso # (Auto) Absolute Nucleated RBC Nucleated RBC % D-Dimer < 200.0 L Sodium Potassium Chloride Carbon Dioxide Anion Gap BUN Creatinine Estimated GFR (MDRD) Glucose Calcium Total Bilirubin AST ALT Alkaline Phosphatase Troponin I Total Protein Albumin Globulin Albumin/Globulin Ratio Lipase - Rads (name of study) cxr Radiology: Prelim report reviewed, EMP read contemporaneously, See rad report (Normal single view chest) PD MEDICAL DECISION MAKING - ED course Complexity details: reviewed results, re-evaluated patient, considered differential, d/w patient ED course: Patient is a 47-year-old female who presents to the emergency department what appears to be a viral upper respiratory infection. She feels better after nebulizer treatment. Has an inhaler for home. We will add steroids. No evidence of acute coronary syndrome, pulmonary embolus. She is well-appearing, nontoxic. Afebrile. No hypoxia. No respiratory distress. Patient counseled regarding signs and symptoms for which I believe and urgent re-evaluation would be necessary. Patient with good understanding of and agreement to plan and is comfortable going home at this time This document was made in part using voice recognition software. While efforts are made to proofread this document, sound alike and grammatical errors may occur. - Sepsis Event Vital Signs: Vital Signs - 24 hr 05/27/18 05/27/18 05/27/18 12:47 13:42 14:45 Temperature 36.5 C Heart Rate 78 69 78 Respiratory 16 16 20 Rate Blood Pressure 148/100 H 132/79 H O2 Saturation 100 100 05/27/18 16:01 Temperature Heart Rate 82 Respiratory 18 Rate Blood Pressure 106/79 O2 Saturation 98 Oxygen O2 Source Room air Departure - Departure Disposition: 01 Home, Self Care Clinical Impression: Viral URI Condition: Good Instructions: ED URI Viral W Wheezing Follow-Up: Ana Cheung ARNP [Primary Care Provider] - Within 1 week Prescriptions: predniSONE [Prednisone] 40 mg PO DAILY #10 tablet Comments: Continue your inhaler at home. Return if you worsen. Take the steroids as prescribed Discharge Date/Time: 05/27/18 16:03
[2018-05-27 14:11] LABS: BASOPHILS # (AUTO) 0.1 10^3/uL (0.0-0.1); BASOPHILS % (AUTO) 0.7 %; EOSINOPHILS # (AUTO) 0.1 10^3/uL (0.0-0.7); EOSINOPHILS % (AUTO) 1.5 %; HGB - HEMOGLOBIN 14.4 g/dL (12.0-16.0); LYMPHOCYTES # (AUTO) 2.8 10^3/uL (1.5-3.5); MEAN CORPUSCULAR HEMOGLOBIN 31.2 pg (27.0-31.0); MEAN CORPUSCULAR HGB CONC 34.1 g/dL (32.0-36.0); MEAN CORPUSCULAR VOLUME 91.7 fL (81.0-99.0); MEAN PLATELET VOLUME 7.9 fL (7.9-10.8); MONOCYTES # (AUTO) 0.7 10^3/uL (0.0-1.0); MONOCYTES % (AUTO) 7.5 %; NEUTROPHILS # (AUTO) 5.1 10^3/uL (1.5-6.6); NEUTROPHILS % (AUTO) 58.3 %; PLT - PLATELET COUNT 229 10^3/uL (130-450); RED BLOOD COUNT 4.62 10^6/uL (4.20-5.40); RED CELL DISTRIBUTION WIDTH 12.6 % (12.0-15.0); WHITE BLOOD COUNT 8.8 x10^3/uL (4.8-10.8)
[2018-05-27 14:24] LABS: ALBUMIN 3.8 g/dL (3.2-5.5); ALBUMIN/GLOBULIN RATIO 1.3 (1.0-2.2); BILIRUBIN,TOTAL 0.5 mg/dL (0.2-1.0); CALCIUM 9.2 mg/dL (8.5-10.3); CREATININE 0.8 mg/dL (0.4-1.0); TOTAL PROTEIN 6.7 g/dL (6.7-8.2)
[2018-05-27] MEDS ORDERED: predniSONE 20 MG TABLET PO STA (15:51)
[2018-05-27 16:02] VITALS: BP 106/79
== END 2018-05-27 16:03 | disposition home or self-care (01) ==
LOC: ED 12:43
DX: J06.9 Acute upper respiratory infection, unspecified (principal); B97.89 Other viral agents as the cause of diseases classified elsewhere; I10 Essential (primary) hypertension
CPT/HCPCS: 36415; 71045; 80053; 83690; 84484; 85025; 85379; 93005; 99283; J7512

== ENCOUNTER 2018-08-10 15:40 | Emergency (ER) | payer MEDICARE, OTHER ==
[2018-08-10 15:49] VITALS: BP 126/101
[2018-08-10] MEDS ORDERED: DEXAMETHASONE 10 MG/ML VIAL PO STA (16:02)
[2018-08-10] MEDS ORDERED: BENZONATATE 100 MG CAPSULE PO STA (16:02)
[2018-08-10] MEDS ORDERED: ALBUTEROL NEB 2.5 MG/3 ML INH STA (16:02)
--- NOTE | 2018-08-10 16:11 | ED Physician Documentation ---
PD HPI URI - Stated complaint Stated Complaint: SOA/COUGH/DIZZY - Chief complaint Chief Complaint: Resp - History obtained from History obtained from: Patient, Family - History of Present Illness Timing - onset: How many weeks ago (1) Timing duration: Weeks (1) Timing details: Gradual onset Pain level max: 3 Pain level now: 3 Associated symptoms: Chills, Nasal congestion, Rhinorrhea, Productive cough (yellow), Dyspnea. No: Fever, Hemoptysis, Chest pain Contributing factors: Sick contact Improves by: Rest Worsened by: Activity, Breathing - Additional information Additional information: Has not been using her inhaler Review of Systems Constitutional: denies: Fever Respiratory: reports: Wheezing GI: denies: Abdominal Pain, Vomiting : denies: Now EGA Skin: denies: Rash PD PAST MEDICAL HISTORY - Past Medical History Past Medical History: Yes Cardiovascular: Hypertension, Arrhythmia Endocrine/Autoimmune: None GI: None PORT CAPTAIN: None HEENT: Other Psych: Depression, Anxiety, Post traumatic stress disorder Musculoskeletal: Osteoarthritis, Fibromyalgia, Chronic back pain Derm: Herpes zoster - Past Surgical History Past Surgical History: Yes General: Gastric surgery /PORT CAPTAIN: section, 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 - Present Medications Home Medications: Ambulatory Orders Medication Instructions Recorded Confirmed Citalopram [CeleXA] 50 mg PO DAILY 02/04/15 07/30/17 Multivitamin,Ther and Minerals 1 tab PO DAILY 02/04/15 07/30/17 [Vitamin and Minerals] busPIRone [Buspar] 10 mg PO TID 02/04/15 07/30/17 Albuterol Sulf [Ventolin Hfa 1 - 2 puffs INH Q4HR PRN #1 inhaler 07/30/17 Inhaler] Ibuprofen [Motrin] 400 mg PO Q6H PRN #20 tablet 03/03/18 Atenolol [Tenormin] 03/27/18 Flecainide [Tambocar] 1 tab PO DAILY 03/27/18 Naproxen 375 mg PO BID PRN 05/27/18 Albuterol Sulf [Ventolin Hfa 1 - 2 puffs INH Q4HR PRN #1 inhaler 08/10/18 Inhaler] Benzonatate [Tessalon Perle] 200 mg PO Q6H PRN #30 capsule 08/10/18 Cetirizine HCl/Pseudoephedrine 1 each PO BID PRN #30 tab.er.12h 08/10/18 [Zyrtec-D Tablet] - Allergies Allergies/Adverse Reactions: Allergies Allergy/AdvReac Type Severity Reaction Status Date / Time gabapentin Allergy Edema Verified 05/27/18 12:52 nortriptyline Allergy Hallucinati Verified 05/27/18 12:52 ons pregabalin [From Lyrica] Allergy Edema Verified 05/27/18 12:52 scallops Allergy Rash Verified 08/10/18 15:45 - Social History Does the pt smoke?: No Smoking Status: Never smoker Does the pt drink ETOH?: Yes Does the pt have substance abuse?: Yes - Immunizations Immunizations are current?: Yes - POLST Patient has POLST: No PD ED PE NORMAL - Vitals Vital signs reviewed: Yes - General General: Alert and oriented X 3, No acute distress, Well developed/nourished - HEENT HEENT: PERRL, Ears normal, Moist mucous membranes, Pharynx benign - Neck Neck: Supple, no meningeal sign - Cardiac Cardiac: RRR - Respiratory Respiratory: Other (Diminished breath sounds bilaterally. No respiratory distress) - Abdomen Abdomen: Soft, Non tender, Non distended - Derm Derm: Warm and dry - Neuro Neuro: Alert and oriented X 3 - Psych Psych: Normal mood, Normal affect Results - Vitals Vitals: Vital Signs - 24 hr 08/10/18 15:43 Temperature 36.4 C L Heart Rate 87 Respiratory 18 Rate Blood Pressure 126/101 H O2 Saturation 100 Oxygen O2 Source Room air PD MEDICAL DECISION MAKING - ED course Complexity details: reviewed results, re-evaluated patient, considered differential, d/w patient ED course: 48-year-old female with what appears to be a viral upper respiratory infection. She is well-appearing, nontoxic. Afebrile. Will place on decongestants and cough medication for home. We will also refill her albuterol for her. We will have her follow-up with her doctor for further care. No evidence of pneumonia, hypoxia, respiratory distress. Patient counseled regarding signs and symptoms for which I believe and urgent re-evaluation would be necessary. Patient with good understanding of and agreement to plan and is comfortable going home at this time This document was made in part using voice recognition software. While efforts are made to proofread this document, sound alike and grammatical errors may occur. Departure - Departure Disposition: 01 Home, Self Care Clinical Impression: Viral URI Condition: Good Instructions: ED Viral Syndrome Follow-Up: Ana Cheung ARNP [Primary Care Provider] - Within 1 week Prescriptions: Albuterol Sulf [Ventolin Hfa Inhaler] 1 - 2 puffs INH Q4HR PRN #1 inhaler PRN Reason: Shortness Of Air/Wheezing Benzonatate [Tessalon Perle] 200 mg PO Q6H PRN #30 capsule PRN Reason: Cough Cetirizine HCl/Pseudoephedrine [Zyrtec-D Tablet] 1 each PO BID PRN #30 tab.er.12h PRN Reason: Nasal Congestion Comments: Return if you worsen. Use the medications as prescribed. follow up with your doctor for further care.
== END 2018-08-10 16:34 | disposition home or self-care (01) ==
LOC: ED 15:40
DX: J06.9 Acute upper respiratory infection, unspecified (principal); B34.9 Viral infection, unspecified; I10 Essential (primary) hypertension
CPT/HCPCS: 94640; 99283; A9270

== ENCOUNTER 2018-10-02 12:04 | Outpatient (CLI) | payer MEDICARE ==
--- NOTE | 2018-10-02 14:33 | XRAY Report ---
Reason: SPONDYLOARTHROPATHY Procedure Date: 10/02/2018 Accession Number: [id number] / [id number] Procedure: XR - Lumbar Spine 2 View CPT Code: FULL RESULT: EXAM: LUMBOSACRAL SPINE RADIOGRAPHY EXAM DATE: 10/02/2018 12:15 PM. CLINICAL HISTORY: SPONDYLOARTHROPATHY. COMPARISONS: None. TECHNIQUE: 3 views. FINDINGS: Alignment: Normal. No spondylolisthesis or scoliosis. Bones: Five agg-[id number] lumbar vertebral bodies are present. No fractures or bone lesions. Disks: Normal. Disk heights are maintained. Facets: Mild multilevel facet arthropathy. Sacroiliac Joints: Unremarkable. Soft Tissues: Normal. The visualized bowel gas pattern is normal. IMPRESSION: Mild facet predominant degenerative changes. RADIA
--- NOTE | 2018-10-02 14:33 | XRAY Report ---
Reason: SPONDYLOARTHROPATHY Procedure Date: 10/02/2018 Accession Number: [id number] / [id number] Procedure: XR - Thoracic Spine 2 View CPT Code: FULL RESULT: EXAM: THORACIC SPINE RADIOGRAPHY EXAM DATE: 10/02/2018 12:15 PM. CLINICAL HISTORY: SPONDYLOARTHROPATHY. COMPARISON: CHEST 1 VIEW 05/27/2018 1:10 PM. TECHNIQUE: 2 views. FINDINGS: Alignment: Normal. No spondylolisthesis or scoliosis. Bones: No fractures or bone lesions. Disks: Normal. Disk heights are maintained. Soft Tissues: Normal. The visualized lungs and cardiomediastinal silhouette are normal. IMPRESSION: Normal thoracic spine radiography. RADIA
--- NOTE | 2018-10-02 14:36 | XRAY Report ---
Reason: SPONDYLOARTHROPATHY Procedure Date: 10/02/2018 Accession Number: [id number] / [id number] Procedure: XR - Cervical Spine Complete CPT Code: FULL RESULT: EXAM: CERVICAL SPINE RADIOGRAPHY EXAM DATE: 10/02/2018 12:15 PM. CLINICAL HISTORY: Spondyloarthropathy. COMPARISONS: None. TECHNIQUE: 5 views. FINDINGS: Alignment: Normal. No spondylolisthesis or scoliosis. Bones: The cervical vertebral bodies and posterior elements are well-visualized from the skull base through C7-T1. No fractures or bone lesions. Disks: Normal. Disk heights are maintained. Facets: No degenerative disease. Neural Foramina: The neural foramina have bony patency bilaterally. Soft Tissues: Normal. No prevertebral soft tissue swelling. The visualized lung apices are clear. IMPRESSION: Normal cervical spine radiography. RADIA
== END 2018-10-02 12:05 | disposition home or self-care (01) ==
LOC: DI 12:04
PROVIDERS: ATTEND Family Medicine
DX: M47.9 Spondylosis, unspecified (principal)
CPT/HCPCS: 72050; 72070; 72100

== ENCOUNTER 2018-10-20 19:56 | Emergency (ER) | payer MEDICARE, OTHER ==
--- NOTE | 2018-10-20 23:10 | ED Physician Documentation ---
PD HPI HEADACHE - Stated complaint Stated Complaint: CHAVES - Chief complaint Chief Complaint: Neuro - History obtained from History obtained from: Patient - History of Present Illness Timing - onset: Yesterday Timing - details: Gradual onset, Constant, Waxing and waning Pain level now: 8 Worst headache ever?: No: Worst headache ever? Location: Left (left retro-orbital) Quality: Throbbing Associated symptoms: Nausea. No: Fever, Stiff neck, Vomiting, Weakness, Numbness, Vision changes Improved by: Dark room, Quiet Worsened by: Light, Noise Similar symptoms before: Other (h/o migraines with similar headaches except previously have been on right side) Recently seen: Not recently seen Review of Systems Constitutional: reports: Reviewed and negative Eyes: reports: Photophobia. denies: Loss of vision, Decreased vision GI: reports: Nausea. denies: Abdominal Pain, Vomiting Neurologic: reports: Headache. 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 HEENT: Other Psych: Depression, Anxiety, Post traumatic stress disorder Musculoskeletal: Osteoarthritis, Fibromyalgia, Chronic back pain Derm: Herpes zoster - Past Surgical History Past Surgical History: Yes General: Gastric surgery /CUSTOM FEED MILL OPERATOR HELPER: section, 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 - Present Medications Home Medications: Ambulatory Orders Medication Instructions Recorded Confirmed Citalopram [CeleXA] 50 mg PO DAILY 02/04/15 07/30/17 Multivitamin,Ther and Minerals 1 tab PO DAILY 02/04/15 07/30/17 [Vitamin and Minerals] busPIRone [Buspar] 10 mg PO TID 02/04/15 07/30/17 Albuterol Sulf [Ventolin Hfa 1 - 2 puffs INH Q4HR PRN #1 inhaler 07/30/17 Inhaler] Ibuprofen [Motrin] 400 mg PO Q6H PRN #20 tablet 03/03/18 Atenolol [Tenormin] 03/27/18 Flecainide [Tambocar] 1 tab PO DAILY 03/27/18 Naproxen 375 mg PO BID PRN 05/27/18 Albuterol Sulf [Ventolin Hfa 1 - 2 puffs INH Q4HR PRN #1 inhaler 08/10/18 Inhaler] Benzonatate [Tessalon Perle] 200 mg PO Q6H PRN #30 capsule 08/10/18 Cetirizine HCl/Pseudoephedrine 1 each PO BID PRN #30 tab.er.12h 08/10/18 [Zyrtec-D Tablet] Promethazine [Phenergan] 25 mg PO Q6H PRN #10 tab 10/21/18 Sumatriptan Succinate [Imitrex] 6 mg SQ DAILY PRN #20 pen.injctr 10/21/18 - Allergies Allergies/Adverse Reactions: Allergies Allergy/AdvReac Type Severity Reaction Status Date / Time gabapentin Allergy Edema Verified 05/27/18 12:52 nortriptyline Allergy Hallucinati Verified 05/27/18 12:52 ons pregabalin [From Lyrica] Allergy Edema Verified 05/27/18 12:52 scallops Allergy Rash Verified 08/10/18 15:45 - Social History Does the pt smoke?: No Smoking Status: Never smoker Does the pt drink ETOH?: Yes Does the pt have substance abuse?: Yes Substance Use and Type: Marijuana - Immunizations Immunizations are current?: Yes - POLST Patient has POLST: No PD ED PE NORMAL - Vitals Vital signs reviewed: Yes - General General: Alert and oriented X 3, Well developed/nourished, Other (appears uncomfortable) - HEENT HEENT: PERRL, EOMI - Neck Neck: Supple, no meningeal sign - Abdomen Abdomen: Soft, Non tender - Neuro Neuro: Alert and oriented X 3, underwriter 2-12 intact, No motor deficit, No sensory deficit, Normal speech Eye Opening: Spontaneous Motor: Obeys Commands Verbal: Oriented GCS Score: 15 Results - Vitals Vitals: Oxygen O2 Source Room air PD MEDICAL DECISION MAKING - ED course Complexity details: re-evaluated patient, considered differential, d/w patient ED course: reevaluated after imitrex and phenergan; patient feels much better and is comfortable with d/c home Departure - Departure Disposition: 01 Home, Self Care Clinical Impression: Migraine Qualifiers: Migraine type: unspecified Status migrainosus presence: without status migrainosus Intractability: not intractable Qualified Code(s): G43.909 - Migraine, unspecified, not intractable, without status migrainosus Condition: Good Instructions: ED Headache Migraine Follow-Up: Ana Cheung ARNP [Primary Care Provider] - (3-4 days if symptoms persist) Prescriptions: Promethazine [Phenergan] 25 mg PO Q6H PRN #10 tab PRN Reason: Nausea / Vomiting Sumatriptan Succinate [Imitrex] 6 mg SQ DAILY PRN #20 pen.injctr PRN Reason: Migraine Discharge Date/Time: 10/21/18 01:00
[2018-10-20] MEDS ORDERED: SUMAtriptan 6 MG/0.5 ML VIAL SUBQ STA (23:24)
[2018-10-20] MEDS ORDERED: PROMETHAZINE 25 MG/1 ML VIAL IM STA (23:24)
[2018-10-21 00:28] VITALS: BP 123/78
== END 2018-10-21 01:00 | disposition home or self-care (01) ==
LOC: ED 19:56
DX: G43.909 Migraine, unspecified, not intractable, without status migrainosus (principal)
CPT/HCPCS: 96372; 99283; 99284

== ENCOUNTER 2018-11-17 10:44 | Emergency (ER) | payer MEDICARE, OTHER ==
--- NOTE | 2018-11-17 10:54 | ED Physician Documentation ---
PD HPI URI - Stated complaint Stated Complaint: SOA/FEVER - Chief complaint Chief Complaint: Fever - History obtained from History obtained from: Patient - History of Present Illness Timing - onset: How many days ago (3) Timing duration: Days (3) Timing details: Abrupt onset, Still present Associated symptoms: Fever, Chills, Nasal congestion, Productive cough. No: NVD Contributing factors: No: Sick contact, COPD / asthma Improves by: No: Medication Worsened by: Activity Similar symptoms before: Has not had sx before Recently seen: Not recently seen Review of Systems Constitutional: reports: Fever, Chills, Myalgias Nose: reports: Congestion Throat: denies: Sore throat Cardiac: denies: Chest pain / pressure Respiratory: reports: Cough, Wheezing GI: denies: Nausea, Vomiting, Diarrhea Neurologic: reports: Generalized weakness, Headache. 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 HEENT: Other Psych: Depression, Anxiety, Post traumatic stress disorder Musculoskeletal: Osteoarthritis, Fibromyalgia, Chronic back pain Derm: Herpes zoster - Past Surgical History Past Surgical History: Yes General: Gastric surgery /DESIGN ENGINEERING SPECIALIST: section, 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 - Present Medications Home Medications: Ambulatory Orders Medication Instructions Recorded Confirmed Citalopram [CeleXA] 50 mg PO DAILY 02/04/15 07/30/17 Multivitamin,Ther and Minerals 1 tab PO DAILY 02/04/15 07/30/17 [Vitamin and Minerals] busPIRone [Buspar] 10 mg PO TID 02/04/15 07/30/17 Albuterol Sulf [Ventolin Hfa 1 - 2 puffs INH Q4HR PRN #1 inhaler 07/30/17 Inhaler] Ibuprofen [Motrin] 400 mg PO Q6H PRN #20 tablet 03/03/18 Atenolol [Tenormin] 03/27/18 Flecainide [Tambocar] 1 tab PO DAILY 03/27/18 Naproxen 375 mg PO BID PRN 05/27/18 Albuterol Sulf [Ventolin Hfa 1 - 2 puffs INH Q4HR PRN #1 inhaler 08/10/18 Inhaler] Benzonatate [Tessalon Perle] 200 mg PO Q6H PRN #30 capsule 08/10/18 Cetirizine HCl/Pseudoephedrine 1 each PO BID PRN #30 tab.er.12h 08/10/18 [Zyrtec-D Tablet] Promethazine [Phenergan] 25 mg PO Q6H PRN #10 tab 10/21/18 Sumatriptan Succinate [Imitrex] 6 mg SQ DAILY PRN #20 pen.injctr 10/21/18 Albuterol Sulf [Ventolin Hfa 1 - 2 puffs INH Q4HR PRN #1 inhaler 11/17/18 Inhaler] Benzonatate [Tessalon Perle] 100 - 200 mg PO TID PRN #30 capsule 11/17/18 Dexamethasone [Decadron] 4 mg PO DAILY #5 tablet 11/17/18 Doxycycline Hyclate 100 mg PO BID #20 capsule 11/17/18 guaiFENesin/CODEINE [Robitussin AC] 10 ml PO Q6H PRN #240 ml 11/17/18 - Allergies Allergies/Adverse Reactions: Allergies Allergy/AdvReac Type Severity Reaction Status Date / Time gabapentin Allergy Edema Verified 05/27/18 12:52 nortriptyline Allergy Hallucinati Verified 05/27/18 12:52 ons pregabalin [From Lyrica] Allergy Edema Verified 05/27/18 12:52 scallops Allergy Rash Verified 11/17/18 10:51 - Social History Does the pt smoke?: No Smoking Status: Never smoker Does the pt drink ETOH?: Yes Does the pt have substance abuse?: Yes - Immunizations Immunizations are current?: Yes - POLST Patient has POLST: No PD ED PE NORMAL - Vitals Vital signs reviewed: Yes - General General: Alert and oriented X 3, No acute distress, Well developed/nourished - HEENT HEENT: Ears normal, Pharynx benign - Neck Neck: Supple, no meningeal sign, No adenopathy - Cardiac Cardiac: RRR, No murmur - Respiratory Respiratory: No: Clear bilaterally (no coarse sounds. has expiratory wheezing diffusely. ) - Abdomen Abdomen: Soft, Non tender - Derm Derm: Normal color, Warm and dry - Extremities Extremities: No tenderness to palpate, Normal ROM s pain, No edema, No calf tenderness / cord - Neuro Neuro: Alert and oriented X 3, No motor deficit, Normal speech Results - Vitals Vitals: Vital Signs - 24 hr 11/17/18 11/17/18 11/17/18 10:50 11:26 14:02 Temperature 36.4 C L 35.7 C L Heart Rate 95 85 83 Respiratory 20 20 20 Rate Blood Pressure 149/90 H 116/73 O2 Saturation 96 96 Oxygen O2 Source Room air - Labs Labs: Laboratory Tests 11/17/18 11:30 Influenza A (Rapid) Negative Influenza B (Rapid) Negative - Rads (name of study) chest xray Radiology: Prelim report reviewed (right middle infiltrate), EMP read contemporaneously, See rad report PD MEDICAL DECISION MAKING - ED course Complexity details: considered differential (feels improved with neb treatment. sats good. Outpt treatment reasonable. ), d/w patient Departure - Departure Disposition: 01 Home, Self Care Clinical Impression: Pneumonia Qualifiers: Pneumonia type: due to unspecified organism Laterality: right Lung location: upper lobe of lung Qualified Code(s): J18.1 - Lobar pneumonia, unspecified organism Condition: Stable Record reviewed to determine appropriate education?: Yes Instructions: ED Pneumonia Adult Follow-Up: Demond Kimble DO [Primary Care Provider] - Prescriptions: Albuterol Sulf [Ventolin Hfa Inhaler] 1 - 2 puffs INH Q4HR PRN #1 inhaler PRN Reason: Shortness Of Air/Wheezing Benzonatate [Tessalon Perle] 100 - 200 mg PO TID PRN #30 capsule PRN Reason: Cough Dexamethasone [Decadron] 4 mg PO DAILY #5 tablet Doxycycline Hyclate 100 mg PO BID #20 capsule guaiFENesin/CODEINE [Robitussin AC] 10 ml PO Q6H PRN #240 ml PRN Reason: Cough Comments: Stay well-hydrated. Use your albuterol inhaler 2-3 puffs 4 times a day for the next 7-10 days. Doxycycline antibiotic twice daily as directed. Decadron steroid to reduce bronchial inflammation as directed daily. Add Tessalon if needed for cough and codeine cough medicine as needed as well. Recheck if not improving over the next few days. You do have a pneumonia on x-ray. Discharge Date/Time: 11/17/18 14:11
[2018-11-17] MEDS ORDERED: ALBUTEROL NEB 2.5 MG/3 ML INH STA (11:05)
[2018-11-17] MEDS ORDERED: DEXAMETHASONE 10 MG/ML VIAL PO STA (11:05)
[2018-11-17] MEDS ORDERED: guaiFENesin/CODEINE 5 ML UDC PO STA (11:05)
[2018-11-17] MEDS ORDERED: BENZONATATE 100 MG CAPSULE PO STA (11:05)
--- NOTE | 2018-11-17 13:41 | XRAY Report ---
Reason: cough and fevers for 3-4 days Procedure Date: 11/17/2018 Accession Number: [id number] / [id number] Procedure: XR - Chest 2 View X-Ray CPT Code: 23569 FULL RESULT: EXAM: CHEST RADIOGRAPHY EXAM DATE: 11/17/2018 01:19 PM. CLINICAL HISTORY: Cough and fevers for 3-4 days. COMPARISON: THORACIC SPINE 2 VIEW 10/02/2018 12:15 PM. TECHNIQUE: 2 views. FINDINGS: Heart size is normal. There are patchy opacities in the right upper lobe. The lungs are otherwise clear. No pleural effusions or pneumothoraces. IMPRESSION: Patchy right upper lobe opacities, likely pneumonia. Follow-up chest radiographs following treatment recommended to ensure resolution. RADIA
[2018-11-17] MEDS ORDERED: DOXYCYCLINE 100 MG TABLET PO STA (13:49)
[2018-11-17 14:02] VITALS: BP 116/73
== END 2018-11-17 14:11 | disposition home or self-care (01) ==
LOC: ED 10:44
DX: J18.1 Lobar pneumonia, unspecified organism (principal); I10 Essential (primary) hypertension
CPT/HCPCS: 71046; 87275; 87276; 94640; 94664; 99283; A9270

== ENCOUNTER 2018-11-28 07:37 | Outpatient (CLI) | payer MEDICARE, OTHER ==
--- NOTE | 2018-11-28 08:37 | Mammography Report ---
Reason: ROUTINE BREAST CANCER SCREENING Procedure Date: 11/28/2018 Accession Number: [id number] / [id number] Procedure: SAMUEL - Screening Mammo w/Vamsi CPT Code: FULL RESULT: EXAM: Screening Mammo w/Vamsi DATE: 11/28/2018 8:25 AM CLINICAL HISTORY: Screening encounter. History of early menses. History of left breast biopsy in 2011 with benign results. TECHNIQUE: Bilateral CC and MLO views were obtained. COMPARISON: 11/14/2017 through 03/28/2014. FINDINGS: The breasts demonstrate heterogeneously dense fibroglandular parenchyma bilaterally. Postbiopsy changes in the left breast are stable. No suspicious masses, clustered microcalcifications, or regions of architectural distortion are identified. IMPRESSION: Benign findings RECOMMENDATION: Routine annual screening unless otherwise clinically indicated. BIRADS CATEGORY 2: Benign findings STANDARD QUALIFYING STATEMENTS: 1. This examination was not reviewed with the aid of Computer-Aided Detection (CAD). 2. A negative or benign imaging report should not delay biopsy if clinically suspicious findings are present. Consider surgical consultation if warrented. More than 5% of cancers are not identified by imaging. 3. Dense breasts may obscure an underlying neoplasm. 4. This examination was reviewed with the aid of 3D breast imaging (tomosynthesis).
== END 2018-11-28 07:38 | disposition home or self-care (01) ==
LOC: DI 07:37
PROVIDERS: ATTEND Family Medicine
DX: Z12.31 Encounter for screening mammogram for malignant neoplasm of breast (principal)
CPT/HCPCS: 77063; 77067

== ENCOUNTER 2019-03-06 08:39 | Emergency (ER) | payer OTHER, MEDICARE ==
[2019-03-06] MEDS ORDERED: IPRATROPIUM/ALBUTEROL 3 ML NEB INH STA (08:55)
--- NOTE | 2019-03-06 09:10 | ED Physician Documentation ---
PD HPI DYSPNEA - Stated complaint Stated Complaint: SOA - Chief complaint Chief Complaint: Resp - History obtained from History obtained from: Patient - History of Present Illness Timing - onset: How many days ago (2) Timing - onset during: Rest Timing - duration: Days (2) Timing - details: Gradual onset, Still present Inciting event(s): URI Improved by: Rest, Sitting up Worsened by: Exertion, Coughing Associated symptoms: Cough, Wheezing, Chest pain / discomfort Similar symptoms before: Diagnosis (pneumonia asthma) Recently seen: Not recently seen - Additional information Additional information: 48-year-old female who has had to use an inhaler with illness previously has developed some acute shortness of breath that is come episodically. She thought this might be some anxiety last night and she took some anxiety medicine did not really seem to help. This morning she is short of breath again and comes to the emergency department. She was on her way to go see her primary care doctor this morning for urinary urgency and frequency. Review of Systems Constitutional: denies: Fever Eyes: denies: Decreased vision Ears: denies: Ear pain Nose: reports: Rhinorrhea / runny nose, Congestion Throat: denies: Sore throat Cardiac: reports: Chest pain / pressure. denies: Palpitations, Pedal edema, Calf pain Respiratory: reports: Dyspnea, Cough GI: denies: Abdominal Pain, Nausea, Vomiting : denies: Dysuria, Frequency Skin: denies: Rash Musculoskeletal: denies: Neck pain, Back pain, Extremity pain PD PAST MEDICAL HISTORY - Past Medical History Cardiovascular: Hypertension, Arrhythmia Respiratory: None Neuro: Headaches, Migraines Endocrine/Autoimmune: None GI: None MARKET EDITOR: None : None HEENT: Other Psych: Depression, Anxiety, Post traumatic stress disorder Musculoskeletal: Osteoarthritis, Fibromyalgia, Chronic back pain Derm: Herpes zoster - Past Surgical History Past Surgical History: Yes General: Gastric surgery /MARKET EDITOR: section, 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 - Present Medications Home Medications: Ambulatory Orders Medication Instructions Recorded Confirmed Citalopram [CeleXA] 50 mg PO DAILY 02/04/15 07/30/17 Multivitamin,Ther and Minerals 1 tab PO DAILY 02/04/15 07/30/17 [Vitamin and Minerals] busPIRone [Buspar] 10 mg PO TID 02/04/15 07/30/17 Albuterol Sulf [Ventolin Hfa 1 - 2 puffs INH Q4HR PRN #1 inhaler 07/30/17 Inhaler] Ibuprofen [Motrin] 400 mg PO Q6H PRN #20 tablet 03/03/18 Atenolol [Tenormin] 03/27/18 Flecainide [Tambocar] 1 tab PO DAILY 03/27/18 Naproxen 375 mg PO BID PRN 05/27/18 Albuterol Sulf [Ventolin Hfa 1 - 2 puffs INH Q4HR PRN #1 inhaler 08/10/18 Inhaler] Benzonatate [Tessalon Perle] 200 mg PO Q6H PRN #30 capsule 08/10/18 Cetirizine HCl/Pseudoephedrine 1 each PO BID PRN #30 tab.er.12h 08/10/18 [Zyrtec-D Tablet] Promethazine [Phenergan] 25 mg PO Q6H PRN #10 tab 10/21/18 Sumatriptan Succinate [Imitrex] 6 mg SQ DAILY PRN #20 pen.injctr 10/21/18 Albuterol Sulf [Ventolin Hfa 1 - 2 puffs INH Q4HR PRN #1 inhaler 11/17/18 Inhaler] Benzonatate [Tessalon Perle] 100 - 200 mg PO TID PRN #30 capsule 11/17/18 Doxycycline Hyclate 100 mg PO BID #20 capsule 11/17/18 dexAMETHasone [Decadron] 4 mg PO DAILY #5 tablet 11/17/18 guaiFENesin/CODEINE [Robitussin AC] 10 ml PO Q6H PRN #240 ml 11/17/18 Albuterol Sulf [Ventolin Hfa 1 - 2 puffs INH Q4HR PRN #1 inhaler 03/06/19 Inhaler] Amox/Clav 875/125 [Augmentin] 1 each PO Q12H #20 tablet 03/06/19 predniSONE [Deltasone] 10 mg PO ONCE #26 tablet 03/06/19 - Allergies Allergies/Adverse Reactions: Allergies Allergy/AdvReac Type Severity Reaction Status Date / Time gabapentin Allergy Edema Verified 03/06/19 08:51 nortriptyline Allergy Hallucinati Verified 03/06/19 08:51 ons pregabalin [From Lyrica] Allergy Edema Verified 03/06/19 08:51 scallops Allergy Rash Verified 03/06/19 08:51 - Social History Does the pt smoke?: No Smoking Status: Never smoker Does the pt drink ETOH?: Yes Does the pt have substance abuse?: Yes - Immunizations Immunizations are current?: Yes - POLST Patient has POLST: No PD ED PE NORMAL - Vitals Vital signs reviewed: Yes (hypertensive ) - General General: Alert and oriented X 3, Well developed/nourished, Other (anxious appearing and tearful) - HEENT HEENT: Atraumatic, PERRL, EOMI, Ears normal, Moist mucous membranes - Neck Neck: Supple, no meningeal sign, No bony TTP - Cardiac Cardiac: RRR, No murmur - Respiratory Respiratory: No respiratory distress, Other (diminished breath sounds bilaterally ) - Abdomen Abdomen: Soft, Non tender - Back Back: No CVA TTP, No spinal TTP - Derm Derm: Normal color, Warm and dry, No rash - Extremities Extremities: No deformity, No edema - Neuro Neuro: Alert and oriented X 3, glass embosser 2-12 intact, No motor deficit, No sensory deficit, Normal speech Eye Opening: Spontaneous Motor: Obeys Commands Verbal: Oriented GCS Score: 15 - Psych Psych: Normal mood, Normal affect Results - Vitals Vitals: Vital Signs - 24 hr 03/06/19 03/06/19 03/06/19 08:47 09:45 10:02 Temperature 36.3 C L Heart Rate 71 68 68 Respiratory 20 19 18 Rate Blood Pressure 141/92 H 111/71 O2 Saturation 99 98 Oxygen O2 Source Room air - EKG (time done) 0850 Rate: Rate (enter#) (72) Rhythm: NSR, LAE Intervals: Prolonged [place], Wide QRS Compare to prior EKG: Changed from prior EKG (SPT 05-27-18 there are insignificant changes in duration of QRS adn AZ intervals.) Computer interpretation: Agree with computer - Labs Labs: Laboratory Tests 03/06/19 03/06/19 03/06/19 09:13 09:13 09:13 WBC 6.6 RBC 4.72 Hgb 13.9 Hct 42.5 MCV 90.0 MCH 29.4 MCHC 32.7 RDW 12.7 Plt Count 236 MPV 10.6 Neut # (Auto) 3.4 Lymph # (Auto) 2.3 [place] # (Auto) 0.7 Eos # (Auto) 0.1 Baso # (Auto) 0.0 Absolute Nucleated RBC 0.00 Nucleated RBC % 0.0 Sodium 139 Potassium 3.8 Chloride 105 Carbon Dioxide 23 Anion Gap 11.0 BUN 11 Creatinine 0.6 Estimated GFR (MDRD) 106 Glucose 81 Calcium 8.6 Total Bilirubin 0.5 AST 21 ALT 18 Alkaline Phosphatase 125 H Troponin I < 0.04 B-Natriuretic Peptide Total Protein 6.4 L Albumin 3.4 Globulin 3.0 Albumin/Globulin Ratio 1.1 Lipase 22 Urine Color Urine Clarity Urine pH Ur Specific [place] Urine Protein Urine Glucose (UA) Urine Ketones Urine Occult Blood Urine Nitrite Urine Bilirubin Urine Urobilinogen Ur Leukocyte Esterase Urine RBC Urine WBC Ur Squamous Epith Cells Urine Bacteria Ur Microscopic Review Urine Culture Comments 03/06/19 03/06/19 09:13 10:16 WBC RBC Hgb Hct MCV MCH MCHC RDW Plt Count MPV Neut # (Auto) Lymph # (Auto) [place] # (Auto) Eos # (Auto) Baso # (Auto) Absolute Nucleated RBC Nucleated RBC % Sodium Potassium Chloride Carbon Dioxide Anion Gap BUN Creatinine Estimated GFR (MDRD) Glucose Calcium Total Bilirubin AST ALT Alkaline Phosphatase Troponin I B-Natriuretic Peptide 43 Total Protein Albumin Globulin Albumin/Globulin Ratio Lipase Urine Color YELLOW Urine Clarity CLEAR Urine pH 7.0 Ur Specific [place] <=1.005 Urine Protein NEGATIVE Urine Glucose (UA) NEGATIVE Urine Ketones NEGATIVE Urine Occult Blood NEGATIVE Urine Nitrite NEGATIVE Urine Bilirubin NEGATIVE Urine Urobilinogen 0.2 (NORMAL) Ur Leukocyte Esterase TRACE H Urine RBC 0-5 Urine WBC 4-5 Ur Squamous Epith Cells FEW Squamous Urine Bacteria Few Ur Microscopic Review INDICATED Urine Culture Comments INDICATED - Rads (name of study) chest Radiology: Prelim report reviewed (Impression: 1. No acute disease in the chest.), EMP read indepedently, See rad report PD MEDICAL DECISION MAKING - ED course Complexity details: reviewed old records, reviewed results, re-evaluated patient, considered differential, d/w patient ED course: 48-year-old female with a history of reactive airway disease has developed dyspnea with reduced breath sound she has improvement with use a of a DuoNeb treatment.She came to the emergency department because of the shortness of breath but she was on her way to her doctor about some urinary urgency and frequency. She has a urine that is positive for leukocyte esterase and makes a great for culture. We will place the patient on some Augmentin in addition to a steroid taper for acute exacerbation of reactive airway disease. Her urine will be cultured and we will get results in 1 to 2 days. Departure - Departure Disposition: 01 Home, Self Care Clinical Impression: Urinary tract infection Qualifiers: Urinary tract infection type: acute cystitis Hematuria presence: without hematuria Qualified Code(s): N30.00 - Acute cystitis without hematuria Asthmatic bronchitis with acute exacerbation Qualifiers: Asthma severity: mild Asthma persistence: intermittent Qualified Code(s): J45.21 - Mild intermittent asthma with (acute) exacerbation Instructions: ED Bronchitis Asthmatic, ED UTI Cystitis Female Follow-Up: Demond Kimble DO [Primary Care Provider] - Prescriptions: Albuterol Sulf [Ventolin Hfa Inhaler] 1 - 2 puffs INH Q4HR PRN #1 inhaler PRN Reason: Shortness Of Air/Wheezing Amox/Clav 875/125 [Augmentin] 1 each PO Q12H #20 tablet predniSONE [Deltasone] 10 mg PO ONCE #26 tablet
[2019-03-06 09:35] LABS: ALBUMIN 3.4 g/dL (3.2-5.5); ALBUMIN/GLOBULIN RATIO 1.1 (1.0-2.2); BILIRUBIN,TOTAL 0.5 mg/dL (0.2-1.0); CALCIUM 8.6 mg/dL (8.5-10.3); CREATININE 0.6 mg/dL (0.4-1.0); TOTAL PROTEIN 6.4 g/dL (6.7-8.2)
[2019-03-06 09:42] LABS: BASOPHILS % (AUTO) 0.5 %; EOSINOPHILS # (AUTO) 0.1 10^3/uL (0.0-0.7); EOSINOPHILS % (AUTO) 1.7 %; HGB - HEMOGLOBIN 13.9 g/dL (12.0-16.0); LYMPHOCYTES # (AUTO) 2.3 10^3/uL (1.5-3.5); MEAN CORPUSCULAR HEMOGLOBIN 29.4 pg (27.0-31.0); MEAN CORPUSCULAR HGB CONC 32.7 g/dL (32.0-36.0); MEAN PLATELET VOLUME 10.6 fL (7.9-10.8); MONOCYTES # (AUTO) 0.7 10^3/uL (0.0-1.0); MONOCYTES % (AUTO) 10.8 %; NEUTROPHILS # (AUTO) 3.4 10^3/uL (1.5-6.6); NEUTROPHILS % (AUTO) 51.5 %; PLT - PLATELET COUNT 236 10^3/uL (130-450); RED BLOOD COUNT 4.72 10^6/uL (4.20-5.40); RED CELL DISTRIBUTION WIDTH 12.7 % (12.0-15.0); WHITE BLOOD COUNT 6.6 x10^3/uL (4.8-10.8)
[2019-03-06] MEDS ORDERED: DEXAMETHASONE 10 MG/ML VIAL PO STA (10:08)
[2019-03-06] MEDS ORDERED: CHERRY SYRUP 10 ML UDC PO ONE (10:08)
--- NOTE | 2019-03-06 10:10 | XRAY Report ---
Reason: chest pain Procedure Date: 03/06/2019 Accession Number: [id number] / [id number] Procedure: XR - Chest 1 View X-Ray CPT Code: 07051 FULL RESULT: EXAM: CHEST RADIOGRAPHY EXAM DATE: 03/06/2019 09:52 AM. CLINICAL HISTORY: Chest pain. COMPARISON: CHEST 2 VIEW 11/17/2018 1:02 PM. TECHNIQUE: 1 view. FINDINGS: Lungs/Pleura: No focal opacities evident. No pleural effusion. No pneumothorax. Interval resolution of right mid upper lung airspace opacities. Mediastinum: Within exam limitations, the cardiomediastinal contour is normal. Other: None. IMPRESSION: 1. No acute disease in the chest. RADIA
[2019-03-06 10:35] LABS: BILIRUBIN,URINE NEGATIVE (NEGATIVE); GLUCOSE, URINE (UA) NEGATIVE (NEGATIVE); KETONES,URINE (UA) NEGATIVE (NEGATIVE); LEUKOCYTE ESTERASE, URINE TRACE (NEGATIVE); NITRITE,URINE NEGATIVE (NEGATIVE); OCCULT BLOOD,URINE NEGATIVE (NEGATIVE); PROTEIN,URINE NEGATIVE (NEGATIVE); UROBILINOGEN,URINE 0.2 (NORMAL) E.U./dL (NORMAL)
[2019-03-06 10:36] LABS: CLARITY,URINE CLEAR (CLEAR)
[2019-03-06 10:48] LABS: BACTERIA,URINE Few /HPF (None Seen); RBC,URINE 0-5 /HPF (0-5); SQUAMOUS EPITHELIAL CELL,UR FEW Squamous (<= Few)
[2019-03-06 12:33] VITALS: BP 124/85
== END 2019-03-06 12:33 | disposition home or self-care (01) ==
LOC: ED 08:39
DX: J45.21 Mild intermittent asthma with (acute) exacerbation (principal); N30.00 Acute cystitis without hematuria; I10 Essential (primary) hypertension
CPT/HCPCS: 36415; 71045; 80053; 81001; 83690; 83880; 84484; 85025; 87077; 87086; 87181; 93005; 94640; 99283; A9270; 81003

== ENCOUNTER 2019-05-05 07:17 | Emergency (ER) | payer OTHER, MEDICARE ==
--- NOTE | 2019-05-05 07:22 | ED Physician Documentation ---
PD HPI BACK PAIN - Stated complaint Stated Complaint: BACK PX - History obtained from History obtained from: Patient - History of Present Illness Timing - onset: How many days ago (several days to a week) Timing - duration: Days Timing - details: Gradual onset, Waxing and waning Location: Lower, Left Quality: Pain, Aching Associated symptoms: Other (dysuria and frequency, along with bladder area cramping pain.). No: Fever, Weakness, Numbness Worsened by: No: Movement, Twisting Contributing factors: Other (she says pain is feeling like UTIs she has had in the past.). No: Lifting, Twisting Recently seen: Clinic (seen in Urgent Care few days ago with symptoms and had UA negative but showing glucose. Rx with Macrobid due to symptoms. She says is still feeling the symptoms without improvement.) Review of Systems Constitutional: denies: Fever, Chills Nose: denies: Rhinorrhea / runny nose, Congestion Throat: denies: Sore throat Respiratory: denies: Cough GI: reports: Abdominal Pain. denies: Nausea, Vomiting : reports: Dysuria, Frequency. denies: Hematuria, Discharge Skin: denies: Rash, Lesions Musculoskeletal: reports: Back pain Neurologic: reports: Generalized weakness. 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 : None HEENT: Other Psych: Depression, Anxiety, Post traumatic stress disorder Musculoskeletal: Osteoarthritis, Fibromyalgia, Chronic back pain Derm: Herpes zoster - Past Surgical History Past Surgical History: Yes General: Gastric surgery /ARCHITECTURAL INTERN: section, 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 - Present Medications Home Medications: Ambulatory Orders Medication Instructions Recorded Confirmed Citalopram [CeleXA] 50 mg PO DAILY 02/04/15 07/30/17 Multivitamin,Ther and Minerals 1 tab PO DAILY 02/04/15 07/30/17 [Vitamin and Minerals] busPIRone [Buspar] 10 mg PO TID 02/04/15 07/30/17 Albuterol Sulf [Ventolin Hfa 1 - 2 puffs INH Q4HR PRN #1 inhaler 07/30/17 Inhaler] Ibuprofen [Motrin] 400 mg PO Q6H PRN #20 tablet 03/03/18 Atenolol [Tenormin] 03/27/18 Flecainide [Tambocar] 1 tab PO DAILY 03/27/18 Naproxen 375 mg PO BID PRN 05/27/18 Albuterol Sulf [Ventolin Hfa 1 - 2 puffs INH Q4HR PRN #1 inhaler 08/10/18 Inhaler] Benzonatate [Tessalon Perle] 200 mg PO Q6H PRN #30 capsule 08/10/18 Cetirizine HCl/Pseudoephedrine 1 each PO BID PRN #30 tab.er.12h 08/10/18 [Zyrtec-D Tablet] Promethazine [Phenergan] 25 mg PO Q6H PRN #10 tab 10/21/18 Sumatriptan Succinate [Imitrex] 6 mg SQ DAILY PRN #20 pen.injctr 10/21/18 Albuterol Sulf [Ventolin Hfa 1 - 2 puffs INH Q4HR PRN #1 inhaler 11/17/18 Inhaler] Benzonatate [Tessalon Perle] 100 - 200 mg PO TID PRN #30 capsule 11/17/18 Doxycycline Hyclate 100 mg PO BID #20 capsule 11/17/18 dexAMETHasone [Decadron] 4 mg PO DAILY #5 tablet 11/17/18 guaiFENesin/CODEINE [Robitussin AC] 10 ml PO Q6H PRN #240 ml 11/17/18 Albuterol Sulf [Ventolin Hfa 1 - 2 puffs INH Q4HR PRN #1 inhaler 03/06/19 Inhaler] Amox/Clav 875/125 [Augmentin] 1 each PO Q12H #20 tablet 03/06/19 predniSONE [Deltasone] 10 mg PO ONCE #26 tablet 03/06/19 Phenazopyridine HCl [Pyridium] 100 mg PO TID PRN #30 tablet 05/05/19 - Allergies Allergies/Adverse Reactions: Allergies Allergy/AdvReac Type Severity Reaction Status Date / Time gabapentin Allergy Edema Verified 05/05/19 07:36 nortriptyline Allergy Hallucinati Verified 05/05/19 07:36 ons pregabalin [From Lyrica] Allergy Edema Verified 05/05/19 07:36 scallops Allergy Rash Verified 05/05/19 07:36 - Social History Does the pt smoke?: No Smoking Status: Never smoker Does the pt drink ETOH?: Yes Does the pt have substance abuse?: Yes - Immunizations Immunizations are current?: Yes - POLST Patient has POLST: No PD ED PE NORMAL - Vitals Vital signs reviewed: Yes - General General: Alert and oriented X 3, Well developed/nourished, Other (appears unc omfortable) - Neck Neck: Supple, no meningeal sign, No adenopathy - Cardiac Cardiac: RRR, No murmur - Respiratory Respiratory: Clear bilaterally - Abdomen Abdomen: Normal bowel sounds, Soft, Non distended, No organomegaly, Other (some suprapubic tenderness without guarding nor percussion tender. ) - Female Female : Deferred - Rectal Rectal: Deferred - Back Back: Other (some left CVA tender. ) - Derm Derm: Normal color - Extremities Extremities: Normal ROM s pain, No edema, No calf tenderness / cord - Neuro Neuro: Alert and oriented X 3, No motor deficit, Normal speech Results - Vitals Vitals: Vital Signs - 24 hr 05/05/19 05/05/19 07:21 09:40 Temperature 36.3 C L 36.7 C Heart Rate 81 61 Respiratory 16 16 Rate Blood Pressure 132/90 H 116/67 O2 Saturation 100 97 Oxygen O2 Source Room air - Labs Labs: Laboratory Tests 05/05/19 05/05/19 05/05/19 07:30 08:15 08:15 WBC 5.7 RBC 4.52 Hgb 13.8 Hct 41.5 MCV 91.8 MCH 30.5 MCHC 33.3 RDW 13.3 Plt Count 220 MPV 10.2 Neut # (Auto) 3.7 Lymph # (Auto) 1.4 L [place] # (Auto) 0.6 Eos # (Auto) 0.1 Baso # (Auto) 0.0 Absolute Nucleated RBC 0.00 Nucleated RBC % 0.0 Sodium 141 Potassium 3.7 Chloride 106 Carbon Dioxide 28 Anion Gap 7.0 BUN 8 Creatinine 0.8 Estimated GFR (MDRD) 76 L Glucose 94 Glycated Hemoglobin Estim Average Glucose Lactic Acid Calcium 8.9 Magnesium 1.9 Total Bilirubin 0.8 AST 25 ALT 21 Alkaline Phosphatase 132 H Total Protein 6.6 L Albumin 3.6 Globulin 3.0 Albumin/Globulin Ratio 1.2 Lipase 18 L Urine Color YELLOW Urine Clarity CLEAR Urine pH 6.0 Ur Specific [place] <=1.005 Urine Protein NEGATIVE Urine Glucose (UA) NEGATIVE Urine Ketones NEGATIVE Urine Occult Blood TRACE-INTA Urine Nitrite NEGATIVE Urine Bilirubin NEGATIVE Urine Urobilinogen 0.2 (NORMAL) Ur Leukocyte Esterase NEGATIVE Ur Microscopic Review NOT INDICATED Urine Culture Comments NOT INDICATED 05/05/19 05/05/19 08:15 08:15 WBC RBC Hgb Hct MCV MCH MCHC RDW Plt Count MPV Neut # (Auto) Lymph # (Auto) [place] # (Auto) Eos # (Auto) Baso # (Auto) Absolute Nucleated RBC Nucleated RBC % Sodium Potassium Chloride Carbon Dioxide Anion Gap BUN Creatinine Estimated GFR (MDRD) Glucose Glycated Hemoglobin 5.7 Estim Average Glucose 117 H Lactic Acid 1.1 Calcium Magnesium Total Bilirubin AST ALT Alkaline Phosphatase Total Protein Albumin Globulin Albumin/Globulin Ratio Lipase Urine Color Urine Clarity Urine pH Ur Specific [place] Urine Protein Urine Glucose (UA) Urine Ketones Urine Occult Blood Urine Nitrite Urine Bilirubin Urine Urobilinogen Ur Leukocyte Esterase Ur Microscopic Review Urine Culture Comments - Rads (name of study) abd pelvic CT Radiology: Prelim report reviewed (no acute process. No stones nor hydronephrosis. No intestinal cause of the pain. ), See rad report PD MEDICAL DECISION MAKING - ED course Complexity details: reviewed results (she has dysuria and flank pain c/w UTI, but UA is normal (though on Macrobid) but CT does not show any hydroneprhosis or such and CBC is normal. So consider IC as cause of symptoms. ), considered differential, d/w patient Departure - Departure Disposition: 01 Home, Self Care Clinical Impression: Dysuria Back pain Qualifiers: Back pain location: low back pain Chronicity: acute Back pain laterality: left Sciatica presence: without sciatica Qualified Code(s): M54.5 - Low back pain Condition: Stable Record reviewed to determine appropriate education?: Yes Instructions: Cystitis Interstitial, ED Dysuria Uncertain Cause Follow-Up: Demond Kimble DO [Primary Care Provider] - Prescriptions: Phenazopyridine HCl [Pyridium] 100 mg PO TID PRN #30 tablet PRN Reason: Abdominal Pain Comments: No signs of infection or kidney swelling or kidney stones or other cause of the pain at this time. The back pain may have been some pressure in the kidney or may been muscular. There is no signs of bladder infection at this time. You can continue the Macrobid you have been prescribed. Otherwise consider some inflammatory changes such as interstitial cystitis. For that we would have you stay well-hydrated and use an anti-inflammatory such as naproxen or ibuprofen twice daily for the next week and phenazopyridine 3 times a day for the next week follow-up with your primary care. Discharge Date/Time: 05/05/19 09:52
[2019-05-05 07:41] LABS: BILIRUBIN,URINE NEGATIVE (NEGATIVE); GLUCOSE, URINE (UA) NEGATIVE (NEGATIVE); KETONES,URINE (UA) NEGATIVE (NEGATIVE); LEUKOCYTE ESTERASE, URINE NEGATIVE (NEGATIVE); NITRITE,URINE NEGATIVE (NEGATIVE); OCCULT BLOOD,URINE TRACE-INTA (NEGATIVE); PROTEIN,URINE NEGATIVE (NEGATIVE); UROBILINOGEN,URINE 0.2 (NORMAL) E.U./dL (NORMAL)
[2019-05-05] MEDS ORDERED: SODIUM CHLORIDE 0.9% 1,000 ML IV ONE (07:48)
[2019-05-05] MEDS ORDERED: KETOROLAC 30 MG/ML VIAL IVP STA (07:49)
[2019-05-05] MEDS ORDERED: HYDROmorphone 2 MG/ML VIAL IVP STA (07:49)
[2019-05-05 07:50] LABS: CLARITY,URINE CLEAR (CLEAR)
[2019-05-05] MEDS ORDERED: ONDANSETRON 4 MG/2 ML VIAL IVP STA (07:50)
[2019-05-05 08:31] LABS: BASOPHILS % (AUTO) 0.3 %; EOSINOPHILS # (AUTO) 0.1 10^3/uL (0.0-0.7); EOSINOPHILS % (AUTO) 1.4 %; HGB - HEMOGLOBIN 13.8 g/dL (12.0-16.0); LYMPHOCYTES # (AUTO) 1.4 10^3/uL (1.5-3.5); LYMPHOCYTES % (AUTO) 23.5 %; MEAN CORPUSCULAR HEMOGLOBIN 30.5 pg (27.0-31.0); MEAN CORPUSCULAR HGB CONC 33.3 g/dL (32.0-36.0); MEAN CORPUSCULAR VOLUME 91.8 fL (81.0-99.0); MEAN PLATELET VOLUME 10.2 fL (7.9-10.8); MONOCYTES # (AUTO) 0.6 10^3/uL (0.0-1.0); MONOCYTES % (AUTO) 10.8 %; NEUTROPHILS # (AUTO) 3.7 10^3/uL (1.5-6.6); NEUTROPHILS % (AUTO) 63.7 %; PLT - PLATELET COUNT 220 10^3/uL (130-450); RED BLOOD COUNT 4.52 10^6/uL (4.20-5.40); RED CELL DISTRIBUTION WIDTH 13.3 % (12.0-15.0); WHITE BLOOD COUNT 5.7 x10^3/uL (4.8-10.8)
--- NOTE | 2019-05-05 08:34 | CT Report ---
Reason: urinary urgency and left flank pain Procedure Date: 05/05/2019 Accession Number: [id number] / [id number] Procedure: CT - Abdomen/Pelvis WO CPT Code: FULL RESULT: EXAM: CT ABDOMEN AND PELVIS (CT KUB) EXAM DATE: 05/05/2019 08:07 AM. CLINICAL HISTORY: Urinary urgency and left flank pain. COMPARISONS: ABDOMEN/PELVIS W/O 03/23/2018 8:45 PM. TECHNIQUE: Routine axial helical CT imaging was performed through the abdomen and pelvis without IV contrast. Reconstructions: Coronal and sagittal. In accordance with CT protocol optimization, one or more of the following dose reduction techniques were utilized for this exam: automated exposure control, adjustment of mA and/or KV based on patient size, or use of iterative reconstructive technique. FINDINGS: Lung Bases: Unremarkable. Right Kidney/Ureter: No stones, hydronephrosis, or hydroureter. No perinephric fat stranding. Left Kidney/Ureter: No stones, hydronephrosis, or hydroureter. No perinephric fat stranding. Other Solid Organs: The liver is diffusely decreased in echogenicity consistent with hepatic steatosis. The adrenal glands and pancreas image normally. Gallbladder/Bile Ducts: The gallbladder is absent. Peritoneal Cavity: Gastric bypass with no bowel obstruction or inflammatory process associated with the bowel. The appendix images normally. Pelvic Organs: No bladder stones or wall thickening. Noncontrast images of the visualized pelvic organs are unremarkable. Vasculature: Unremarkable. Other: None. IMPRESSION: No urinary tract stones or obstruction. RADIA
[2019-05-05 08:46] LABS: ALBUMIN 3.6 g/dL (3.2-5.5); ALBUMIN/GLOBULIN RATIO 1.2 (1.0-2.2); BILIRUBIN,TOTAL 0.8 mg/dL (0.2-1.0); CALCIUM 8.9 mg/dL (8.5-10.3); CREATININE 0.8 mg/dL (0.4-1.0); MAGNESIUM 1.9 mg/dL (1.7-2.8); TOTAL PROTEIN 6.6 g/dL (6.7-8.2)
[2019-05-05] MEDS ORDERED: PHENAZOPYRIDINE 100 MG TABLET PO STA (09:23)
[2019-05-05 09:24] LABS: HB2 TOTAL 14.2 g/dL; HEMOGLOBIN A1C 0.55 g/dL; HEMOGLOBIN A1C % 5.7 % (4.6-6.2)
[2019-05-05 09:41] VITALS: BP 116/67
== END 2019-05-05 09:52 | disposition home or self-care (01) ==
LOC: ED 07:17
DX: M54.5 Low back pain (principal); R30.0 Dysuria; R35.0 Frequency of micturition; I10 Essential (primary) hypertension
CPT/HCPCS: 36415; 74176; 80053; 81003; 83036; 83605; 83690; 83735; 85025; 96361; 96374; 99284; A9270; J1170; 81001; 87086

== ENCOUNTER 2019-05-29 09:51 | Outpatient (CLI) | payer OTHER, MEDICARE ==
--- NOTE | 2019-05-29 11:14 | Ultrasound Report ---
Reason: HX OF THYROID NODULE Procedure Date: 05/29/2019 Accession Number: [id number] / [id number] Procedure: US - Head or Neck Soft Tissue CPT Code: FULL RESULT: EXAM: THYROID ULTRASOUND EXAM DATE: 05/29/2019 10:59 AM. CLINICAL HISTORY: History of thyroid nodule. COMPARISON: HEAD OR NECK SOFT TISSUE 10/08/2017 1:28 PM. TECHNIQUE: Real time sonographic imaging of the thyroid was performed by the php wordpress developer. Multiple graphic art sales representative static images were saved for review. FINDINGS: THYROID GLAND: Right Lobe: 4.7 x 1.8 x 1.7 cm, volume 7.5 cc. Normal background echotexture. Right Lobe Nodules: 1.6 x 0.7 x 1.0 cm lower pole hypoechoic solid-appearing nodule. Left Lobe: 4.5 x 1.2 x 1.4 cm, volume 3.9 cc. Normal background echotexture. Left Lobe Nodules: None. Isthmus: 0.3 cm AP. Isthmic Nodules: None. LYMPH NODES: No adenopathy demonstrated in the central or lateral compartment. OTHER: None. IMPRESSION: Interval increase in size of the previously seen solid right lobe of the thyroid inferior pole nodule. Recommendation for tissue sampling by ultrasound-guided fine-needle aspiration stands. Management recommendations are based on 2015 [place] [employer] Management Guidelines for Adult Patients with Thyroid Nodules and Differentiated Thyroid Cancer. RADIA
== END 2019-05-29 09:52 | disposition home or self-care (01) ==
LOC: DI 09:51
PROVIDERS: ATTEND Physician Assistant Medical
DX: E04.1 Nontoxic single thyroid nodule (principal)
CPT/HCPCS: 76536

== ENCOUNTER 2019-06-12 10:33 | Outpatient (CLI) | payer OTHER, MEDICARE ==
[~2019-06-12 10:33] MED LIST: BUFFERED LIDOCAINE 10 ML SYRINGE ONE
--- NOTE | 2019-06-13 15:57 | Ultrasound Report ---
Reason: RIGHT THYROID NODULE Procedure Date: 06/12/2019 Accession Number: [id number] / [id number] Procedure: US - Head or Neck Soft Tissue CPT Code: FULL RESULT: EXAM: THYROID ULTRASOUND EXAM DATE: 06/12/2019 11:38 AM. CLINICAL HISTORY: RIGHT THYROID NODULE. COMPARISON: HEAD OR NECK SOFT TISSUE 05/29/2019 10:28 AM. TECHNIQUE: Real time sonographic imaging of the thyroid was performed by the drill press set up operator radial. Multiple personal service representative static images were saved for review. FINDINGS: THYROID GLAND: Right Lobe: 4.8 x 1.8 x 1.7 cm, volume 7.5 cc. Normal background echotexture. Right Lobe Nodules: Previously described solid nodule of the right lower lobe thyroid cannot be reproduced despite extensive scanning by both the technologist and the radiologist. Biopsy therefore was not performed. IMPRESSION: Previously demonstrated right thyroid nodule referred for fine-needle aspiration cannot be redemonstrated on imaging today. Biopsy was canceled due to lack of target. Recommend follow-up imaging in 6-12 months to ensure stability. This follow-up can coincide with time for surveillance imaging of intermediate suspicion 6 mm inferior left thyroid nodule noted on exam of 05/29/2019. Management recommendations are based on 2015 [place] [employer] Management Guidelines for Adult Patients with Thyroid Nodules and Differentiated Thyroid Cancer. RADIA
== END 2019-06-12 10:34 | disposition home or self-care (01) ==
LOC: DI 10:33
PROVIDERS: ATTEND Physician Assistant Medical
DX: E04.1 Nontoxic single thyroid nodule (principal)
CPT/HCPCS: 76536

== ENCOUNTER 2019-06-23 13:22 | Emergency (ER) | payer OTHER, MEDICARE ==
--- NOTE | 2019-06-23 14:54 | ED Physician Documentation ---
PD HPI DYSPNEA - Stated complaint Stated Complaint: DIFFICUTLY BREATHING/RACING HEART - Chief complaint Chief Complaint: General - History obtained from History obtained from: Patient - History of Present Illness Timing - onset: How many days ago (2) Timing - onset during: Rest (She has noticed intermittently both at rest and with light activity feeling of epigastric to substernal fluttery feeling in discomfort. It does seem a little worse after eating. She has not had any nausea or vomiting. She denies any cough or lightheadedness. She states she has been feeling anxious about it with a history of anxiety disorder. She denies prior similar episodes. No history of heart problems.), Light activity Timing - duration: Days (2) Timing - details: Gradual onset, Intermittant Inciting event(s): No: Out of meds, URI Associated symptoms: Palpitations, Anxiety. No: Fever, Cough, Hemoptysis, Wheezing, Bilateral edema Similar symptoms before: Has not had sx before Review of Systems Constitutional: denies: Fever, Chills, Myalgias Nose: denies: Rhinorrhea / runny nose, Congestion Throat: denies: Sore throat Cardiac: reports: Palpitations. denies: Chest pain / pressure, Pedal edema, Calf pain Respiratory: reports: Dyspnea. denies: Cough, Wheezing GI: reports: Abdominal Pain (epigatric). 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 : None HEENT: Other Psych: Depression, Anxiety, Post traumatic stress disorder Musculoskeletal: Osteoarthritis, Fibromyalgia, Chronic back pain Derm: Herpes zoster - Past Surgical History Past Surgical History: Yes General: Gastric surgery /CONTROLS TECHNICIAN: section, 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 - Present Medications Home Medications: Ambulatory Orders Medication Instructions Recorded Confirmed Citalopram [CeleXA] 50 mg PO DAILY 02/04/15 07/30/17 Multivitamin,Ther and Minerals 1 tab PO DAILY 02/04/15 07/30/17 [Vitamin and Minerals] busPIRone [Buspar] 10 mg PO TID 02/04/15 07/30/17 Albuterol Sulf [Ventolin Hfa 1 - 2 puffs INH Q4HR PRN #1 inhaler 07/30/17 Inhaler] Ibuprofen [Motrin] 400 mg PO Q6H PRN #20 tablet 03/03/18 Atenolol [Tenormin] 03/27/18 Flecainide [Tambocar] 1 tab PO DAILY 03/27/18 Naproxen 375 mg PO BID PRN 05/27/18 Albuterol Sulf [Ventolin Hfa 1 - 2 puffs INH Q4HR PRN #1 inhaler 08/10/18 Inhaler] Benzonatate [Tessalon Perle] 200 mg PO Q6H PRN #30 capsule 08/10/18 Cetirizine HCl/Pseudoephedrine 1 each PO BID PRN #30 tab.er.12h 08/10/18 [Zyrtec-D Tablet] Promethazine [Phenergan] 25 mg PO Q6H PRN #10 tab 10/21/18 Sumatriptan Succinate [Imitrex] 6 mg SQ DAILY PRN #20 pen.injctr 10/21/18 Albuterol Sulf [Ventolin Hfa 1 - 2 puffs INH Q4HR PRN #1 inhaler 11/17/18 Inhaler] Benzonatate [Tessalon Perle] 100 - 200 mg PO TID PRN #30 capsule 11/17/18 Doxycycline Hyclate 100 mg PO BID #20 capsule 11/17/18 dexAMETHasone [Decadron] 4 mg PO DAILY #5 tablet 11/17/18 guaiFENesin/CODEINE [Robitussin AC] 10 ml PO Q6H PRN #240 ml 11/17/18 Albuterol Sulf [Ventolin Hfa 1 - 2 puffs INH Q4HR PRN #1 inhaler 03/06/19 Inhaler] Amox/Clav 875/125 [Augmentin] 1 each PO Q12H #20 tablet 03/06/19 predniSONE [Deltasone] 10 mg PO ONCE #26 tablet 03/06/19 Phenazopyridine HCl [Pyridium] 100 mg PO TID PRN #30 tablet 05/05/19 Famotidine 20 mg PO DAILY #15 tablet 06/23/19 Lidocaine Viscous 2% [Xylocaine 5 ml PO Q4H PRN #100 ml 06/23/19 Viscous 2%] Sucralfate [Carafate] 1 gm PO TID #30 tablet 06/23/19 - Allergies Allergies/Adverse Reactions: Allergies Allergy/AdvReac Type Severity Reaction Status Date / Time gabapentin Allergy Edema Verified 06/01/19 19:17 nortriptyline Allergy Hallucinati Verified 06/01/19 19:17 ons pregabalin [From Lyrica] Allergy Edema Verified 06/01/19 19:17 scallops Allergy Rash Verified 06/01/19 19:17 - Social History Does the pt smoke?: No Smoking Status: Never smoker Does the pt drink ETOH?: Yes Does the pt have substance abuse?: Yes - Immunizations Immunizations are current?: Yes - POLST Patient has POLST: No PD ED PE NORMAL - Vitals Vital signs reviewed: Yes - General General: Alert and oriented X 3, No acute distress, Well developed/nourished - HEENT HEENT: Pharynx benign - Neck Neck: Supple, no meningeal sign, No adenopathy - Cardiac Cardiac: RRR, No murmur - Respiratory Respiratory: Clear bilaterally - Abdomen Abdomen: Soft, Non distended, No organomegaly, Other (tender epigastric area with some guarding, no masses nor percussion tenderness. ) - Derm Derm: Normal color, Warm and dry - Extremities Extremities: No tenderness to palpate, Normal ROM s pain, No edema, No calf tenderness / cord - Neuro Neuro: Alert and oriented X 3, No motor deficit, Normal speech Results - Vitals Vitals: Vital Signs - 24 hr 06/23/19 06/23/19 06/23/19 13:34 14:42 14:53 Temperature 36.8 C Heart Rate 77 67 Respiratory 18 16 Rate Blood Pressure 142/79 H 125/72 O2 Saturation 96 94 06/23/19 06/23/19 15:44 16:21 Temperature Heart Rate 60 64 Respiratory 13 18 Rate Blood Pressure 114/69 121/74 O2 Saturation 95 99 Oxygen O2 Source Room air - EKG (time done) 13:29 Rate: Rate (enter#) (76) Rhythm: NSR [place]: Normal Intervals: Wide QRS (incomplete IVCD) QRS: Normal Ischemia: Normal ST segments. No: ST elevation c/w ischemia, ST depression Compare to prior EKG: Unchanged from prior EKG - Labs Labs: Laboratory Tests 06/23/19 06/23/19 06/23/19 15:20 15:20 15:20 WBC 7.1 RBC 4.58 Hgb 14.9 Hct 43.5 MCV 95.0 MCH 32.5 H MCHC 34.3 RDW 12.9 Plt Count 250 MPV 10.7 Neut # (Auto) 5.4 Lymph # (Auto) 1.3 L [place] # (Auto) 0.4 Eos # (Auto) 0.0 Baso # (Auto) 0.0 Absolute Nucleated RBC 0.00 Nucleated RBC % 0.0 Sodium 142 Potassium 4.2 Chloride 105 Carbon Dioxide 27 Anion Gap 10.0 BUN 11 Creatinine 0.6 Estimated GFR (MDRD) 106 Glucose 120 H Calcium 9.4 Magnesium 2.0 Total Bilirubin 0.8 AST 25 ALT 24 Alkaline Phosphatase 120 Troponin I High Sens 3.7 Total Protein 6.6 L Albumin 3.9 Globulin 2.7 Albumin/Globulin Ratio 1.4 Lipase 21 L PD MEDICAL DECISION MAKING - ED course Complexity details: reviewed results, re-evaluated patient (improved with GI cocktail), considered differential (seems stomach pain along with anxiety related to symptoms. since has had gastric bypass, less likely to be gastritis per se, but consider reflux and duodenitis. Might be still some acid production. ), d/w patient Departure - Departure Disposition: Home, Self Care Clinical Impression: Anxiety about health, Duodenitis Dyspnea Qualifiers: Dyspnea type: shortness of breath Qualified Code(s): R06.02 - Shortness of breath Condition: Stable Record reviewed to determine appropriate education?: Yes Instructions: ED Gastritis Follow-Up: Dalila Barba PA-C [Primary Care Provider] - Prescriptions: Famotidine 20 mg PO DAILY #15 tablet Lidocaine Viscous 2% [Xylocaine Viscous 2%] 5 ml PO Q4H PRN #100 ml PRN Reason: Pain Sucralfate [Carafate] 1 gm PO TID #30 tablet Comments: No signs of heart attack or heart dysfunction at this time. Pancreas and liver appear normal as well. Your symptoms sound like an irritation of the esophagus or the duodenum (since you have had a gastric bypass, it is less likely the stomach itself is irritated but it still can be). Stay well-hydrated. Use famotidine acid reducing medicine daily for a couple of weeks. Sucralfate to coat the esophagus and intestine as directed. Add antacid such as Maalox or Mylanta along with some lidocaine if needed for the discomfort. Follow-up with your primary care if not well improving over the next several days. Discharge Date/Time: 06/23/19 16:38
[2019-06-23] MEDS ORDERED: LIDOCAINE VISCOUS 2% 15 ML UDC MM STA (15:18)
[2019-06-23] MEDS ORDERED: ONDANSETRON 4 MG/2 ML VIAL IVP STA (15:19)
[2019-06-23] MEDS ORDERED: SODIUM CHLORIDE 0.9% 1,000 ML IV ONE (15:19)
[2019-06-23] MEDS ORDERED: LORazepam 2 MG/ML VIAL IVP STA (15:19)
[2019-06-23] MEDS ORDERED: MAG HYDROX/AL HYDROX/SIMETH 30 ML UDC PO STA (15:19)
[2019-06-23] MEDS ORDERED: MORPHINE 2 MG/ML CARPUJECT IVP STA (15:20)
[2019-06-23 15:26] LABS: BASOPHILS % (AUTO) 0.3 %; EOSINOPHILS % (AUTO) 0.6 %; HGB - HEMOGLOBIN 14.9 g/dL (12.0-16.0); LYMPHOCYTES # (AUTO) 1.3 10^3/uL (1.5-3.5); LYMPHOCYTES % (AUTO) 17.7 %; MEAN CORPUSCULAR HEMOGLOBIN 32.5 pg (27.0-31.0); MEAN CORPUSCULAR HGB CONC 34.3 g/dL (32.0-36.0); MEAN PLATELET VOLUME 10.7 fL (7.9-10.8); MONOCYTES # (AUTO) 0.4 10^3/uL (0.0-1.0); MONOCYTES % (AUTO) 5.4 %; NEUTROPHILS # (AUTO) 5.4 10^3/uL (1.5-6.6); NEUTROPHILS % (AUTO) 75.6 %; PLT - PLATELET COUNT 250 10^3/uL (130-450); RED BLOOD COUNT 4.58 10^6/uL (4.20-5.40); RED CELL DISTRIBUTION WIDTH 12.9 % (12.0-15.0); WHITE BLOOD COUNT 7.1 x10^3/uL (4.8-10.8)
[2019-06-23 15:35] LABS: ALBUMIN 3.9 g/dL (3.2-5.5); ALBUMIN/GLOBULIN RATIO 1.4 (1.0-2.2); BILIRUBIN,TOTAL 0.8 mg/dL (0.2-1.0); CALCIUM 9.4 mg/dL (8.5-10.3); CREATININE 0.6 mg/dL (0.4-1.0); TOTAL PROTEIN 6.6 g/dL (6.7-8.2)
[2019-06-23 16:21] VITALS: BP 121/74
== END 2019-06-23 16:38 | disposition home or self-care (01) ==
LOC: ED 13:22
DX: K29.80 Duodenitis without bleeding (principal); F41.9 Anxiety disorder, unspecified; R06.02 Shortness of breath; I10 Essential (primary) hypertension; Z98.84 Bariatric surgery status
CPT/HCPCS: 36415; 80053; 83690; 83735; 84484; 85025; 93005; 96361; 96374; 96375; 99284; A9270; J2060

== ENCOUNTER 2019-07-24 11:43 | Emergency (ER) | payer OTHER, MEDICARE ==
[2019-07-24 12:23] LABS: BASOPHILS % (AUTO) 0.2 %; EOSINOPHILS % (AUTO) 0.3 %; HGB - HEMOGLOBIN 14.8 g/dL (12.0-16.0); LYMPHOCYTES # (AUTO) 1.2 10^3/uL (1.5-3.5); LYMPHOCYTES % (AUTO) 13.1 %; MEAN CORPUSCULAR HEMOGLOBIN 30.8 pg (27.0-31.0); MEAN CORPUSCULAR HGB CONC 32.6 g/dL (32.0-36.0); MEAN CORPUSCULAR VOLUME 94.6 fL (81.0-99.0); MEAN PLATELET VOLUME 9.7 fL (7.9-10.8); MONOCYTES # (AUTO) 0.5 10^3/uL (0.0-1.0); MONOCYTES % (AUTO) 4.9 %; NEUTROPHILS # (AUTO) 7.7 10^3/uL (1.5-6.6); PLT - PLATELET COUNT 237 10^3/uL (130-450); RED CELL DISTRIBUTION WIDTH 12.2 % (12.0-15.0); WHITE BLOOD COUNT 9.5 x10^3/uL (4.8-10.8)
[2019-07-24 12:36] LABS: ALBUMIN 3.8 g/dL (3.2-5.5); ALBUMIN/GLOBULIN RATIO 1.4 (1.0-2.2); BILIRUBIN,TOTAL 0.8 mg/dL (0.2-1.0); CALCIUM 9.1 mg/dL (8.5-10.3); CREATININE 0.6 mg/dL (0.4-1.0); TOTAL PROTEIN 6.6 g/dL (6.7-8.2)
--- NOTE | 2019-07-24 14:26 | ED Physician Documentation ---
History of Present Illness - Stated complaint Stated Complaint: ABD PX/NAUSEA - Chief complaint Chief Complaint: Abd Pain - Additonal information Additional information: This is a 49-year-old female with a history of hypertension, arrhythmia on flecainide, anxiety, fibromyalgia, Who presents with intermittent abdominal discomfort. Patient states that since her last visit in the emergency department she has had intermittent feeling of epigastric burning which resolves with taking Mylanta or GI cocktail. She had an episode of epigastric discomfort in the last 48 hours which progressed to a feeling of burning from her epigastrium rating up towards her chest and down towards her umbilicus. She also felt like her heart was beating fast during this episode, though she denies any specific chest discomfort. She called nurse hotline for her clinic recommend that she checked out here. 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 She denies any syncope, she has no discomfort at this time. No vomiting. She did have a stool today which was quite greasy. 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 : None HEENT: Other Psych: Depression, Anxiety, Post traumatic stress disorder Musculoskeletal: Osteoarthritis, Fibromyalgia, Chronic back pain Derm: Herpes zoster - Past Surgical History Past Surgical History: Yes General: Gastric surgery /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: section, 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 - Present Medications Home Medications: Ambulatory Orders Medication Instructions Recorded Confirmed Citalopram [CeleXA] 50 mg PO DAILY 02/04/15 07/30/17 Multivitamin,Ther and Minerals 1 tab PO DAILY 02/04/15 07/30/17 [Vitamin and Minerals] busPIRone [Buspar] 10 mg PO TID 02/04/15 07/30/17 Albuterol Sulf [Ventolin Hfa 1 - 2 puffs INH Q4HR PRN #1 inhaler 07/30/17 Inhaler] Ibuprofen [Motrin] 400 mg PO Q6H PRN #20 tablet 03/03/18 Atenolol [Tenormin] 03/27/18 Flecainide [Tambocar] 1 tab PO DAILY 03/27/18 Naproxen 375 mg PO BID PRN 05/27/18 Albuterol Sulf [Ventolin Hfa 1 - 2 puffs INH Q4HR PRN #1 inhaler 08/10/18 Inhaler] Benzonatate [Tessalon Perle] 200 mg PO Q6H PRN #30 capsule 08/10/18 Cetirizine HCl/Pseudoephedrine 1 each PO BID PRN #30 tab.er.12h 08/10/18 [Zyrtec-D Tablet] Promethazine [Phenergan] 25 mg PO Q6H PRN #10 tab 10/21/18 Sumatriptan Succinate [Imitrex] 6 mg SQ DAILY PRN #20 pen.injctr 10/21/18 Albuterol Sulf [Ventolin Hfa 1 - 2 puffs INH Q4HR PRN #1 inhaler 11/17/18 Inhaler] Benzonatate [Tessalon Perle] 100 - 200 mg PO TID PRN #30 capsule 11/17/18 Doxycycline Hyclate 100 mg PO BID #20 capsule 11/17/18 dexAMETHasone [Decadron] 4 mg PO DAILY #5 tablet 11/17/18 guaiFENesin/CODEINE [Robitussin AC] 10 ml PO Q6H PRN #240 ml 11/17/18 Albuterol Sulf [Ventolin Hfa 1 - 2 puffs INH Q4HR PRN #1 inhaler 03/06/19 Inhaler] Amox/Clav 875/125 [Augmentin] 1 each PO Q12H #20 tablet 03/06/19 predniSONE [Deltasone] 10 mg PO ONCE #26 tablet 03/06/19 Phenazopyridine HCl [Pyridium] 100 mg PO TID PRN #30 tablet 05/05/19 Famotidine 20 mg PO DAILY #15 tablet 06/23/19 Lidocaine Viscous 2% [Xylocaine 5 ml PO Q4H PRN #100 ml 06/23/19 Viscous 2%] Sucralfate [Carafate] 1 gm PO TID #30 tablet 06/23/19 Famotidine 20 mg PO DAILY #30 tablet 07/24/19 Sucralfate 1 gm PO BID #28 tablet 07/24/19 - Allergies Allergies/Adverse Reactions: Allergies Allergy/AdvReac Type Severity Reaction Status Date / Time gabapentin Allergy Edema Verified 06/01/19 19:17 nortriptyline Allergy Hallucinati Verified 06/01/19 19:17 ons pregabalin [From Lyrica] Allergy Edema Verified 06/01/19 19:17 scallops Allergy Rash Verified 06/01/19 19:17 - Social History Does the pt smoke?: No Smoking Status: Never smoker Does the pt drink ETOH?: Yes Does the pt have substance abuse?: Yes - Immunizations Immunizations are current?: Yes - POLST Patient has POLST: No PD ED PE NORMAL - General General: Alert and oriented X 3 - HEENT HEENT: Atraumatic - Neck Neck: Supple, no meningeal sign - Cardiac Cardiac: RRR, No murmur - Respiratory Respiratory: No respiratory distress, Clear bilaterally - Abdomen Abdomen: Soft, Non tender, Non distended - Extremities Extremities: No deformity - Neuro Neuro: Alert and oriented X 3, digital forensics examiner 2-12 intact, No motor deficit, No sensory deficit Results - Vitals Vitals: Oxygen O2 Source Room air - EKG (time done) 14:59 Other comments: Other comments (Rate 64, rhythm sinus, there is a nonspecific intraventricular conduction delay. There is no ST segment elevation or depression. T wave flattening in V3 and aVL.) - Labs Labs: Laboratory Tests 07/24/19 07/24/19 07/24/19 12:20 12:20 14:45 WBC 9.5 RBC 4.80 Hgb 14.8 Hct 45.4 MCV 94.6 MCH 30.8 MCHC 32.6 RDW 12.2 Plt Count 237 MPV 9.7 Neut # (Auto) 7.7 H Lymph # (Auto) 1.2 L [place] # (Auto) 0.5 Eos # (Auto) 0.0 Baso # (Auto) 0.0 Absolute Nucleated RBC 0.00 Nucleated RBC % 0.0 Sodium 142 Potassium 4.1 Chloride 108 Carbon Dioxide 25 Anion Gap 9.0 BUN 10 Creatinine 0.6 Estimated GFR (MDRD) 106 Glucose 131 H Calcium 9.1 Total Bilirubin 0.8 AST 25 ALT 25 Alkaline Phosphatase 129 H Troponin I High Sens Total Protein 6.6 L Albumin 3.8 Globulin 2.8 Albumin/Globulin Ratio 1.4 Lipase 19 L Urine Color YELLOW Urine Clarity CLEAR Urine pH 6.0 Ur Specific [place] 1.025 Urine Protein NEGATIVE Urine Glucose (UA) NEGATIVE Urine Ketones 15 H Urine Occult Blood TRACE-INTA Urine Nitrite NEGATIVE Urine Bilirubin NEGATIVE Urine Urobilinogen 0.2 (NORMAL) Ur Leukocyte Esterase NEGATIVE Ur Microscopic Review NOT INDICATED Urine Culture Comments NOT INDICATED Urine HCG, Qual 07/24/19 07/24/19 14:45 15:02 WBC RBC Hgb Hct MCV MCH MCHC RDW Plt Count MPV Neut # (Auto) Lymph # (Auto) [place] # (Auto) Eos # (Auto) Baso # (Auto) Absolute Nucleated RBC Nucleated RBC % Sodium Potassium Chloride Carbon Dioxide Anion Gap BUN Creatinine Estimated GFR (MDRD) Glucose Calcium Total Bilirubin AST ALT Alkaline Phosphatase Troponin I High Sens 3.3 Total Protein Albumin Globulin Albumin/Globulin Ratio Lipase Urine Color Urine Clarity Urine pH Ur Specific [place] 1.025 Urine Protein Urine Glucose (UA) Urine Ketones Urine Occult Blood Urine Nitrite Urine Bilirubin Urine Urobilinogen Ur Leukocyte Esterase Ur Microscopic Review Urine Culture Comments Urine HCG, Qual NEGATIVE PD MEDICAL DECISION MAKING - ED course Complexity details: considered differential (Gastritis, pancreatitis, ACS, biliary pathology) ED course: Pt is well appearing with no abdominal tenderness and specifically, no RUQ tenderness. EKG shows no convincing signs of ischemia or dysrhtymia, and HS troponin is negative, making ACS highly unlikley. Given the long duration of her discomfort a single troponin was sufficient. Lungs are clear and she has no shortness of breath. CBC and abdominal labs unrevealing. After GI cocktail and famotidine her discomfort has resolved. I do think this is likely gastritis or ulcer given her symptoms and their consistent resolution with acid blocking medications. I prescribed famotidine and sucralfate and recommended PCP and GI follow up and reviewed return precautions. Departure - Departure Disposition: 01 Home, Self Care Clinical Impression: Epigastric pain Condition: Good Instructions: ED Epigastric Pain [facility] Follow-Up: Dalila Barba PA-C [Primary Care Provider] - Within 1 week Prescriptions: Famotidine 20 mg PO DAILY #30 tablet Sucralfate 1 gm PO BID #28 tablet Comments: You were seen today for some mid/upper abdominal discomfort. Your labs are reassuring at this time. Please follow-up with your odd jobs day worker as scheduled as well as your primary care provider. Please take the famotidine every day, this may help if this is related to gastritis or an ulcer. If you are developing new or worsening chest pain, persistent vomiting, trouble breathing, or any other concerning symptoms please return to the emergency department. Discharge Date/Time: 07/24/19 16:24
[2019-07-24 14:57] LABS: BILIRUBIN,URINE NEGATIVE (NEGATIVE); GLUCOSE, URINE (UA) NEGATIVE (NEGATIVE); KETONES,URINE (UA) 15 mg/dL (NEGATIVE); LEUKOCYTE ESTERASE, URINE NEGATIVE (NEGATIVE); NITRITE,URINE NEGATIVE (NEGATIVE); OCCULT BLOOD,URINE TRACE-INTA (NEGATIVE); PROTEIN,URINE NEGATIVE (NEGATIVE); UROBILINOGEN,URINE 0.2 (NORMAL) E.U./dL (NORMAL)
[2019-07-24 15:01] LABS: CLARITY,URINE CLEAR (CLEAR); HCG UR QUAL NEGATIVE
[2019-07-24 15:07] VITALS: BP 129/90
== END 2019-07-24 16:24 | disposition home or self-care (01) ==
LOC: ED 11:43
DX: R10.13 Epigastric pain (principal); I45.9 Conduction disorder, unspecified; I10 Essential (primary) hypertension; M79.7 Fibromyalgia
CPT/HCPCS: 36415; 80053; 81001; 81003; 81025; 83690; 84484; 85025; 87086; 93005; 99283

== ENCOUNTER 2019-07-28 11:17 | Outpatient (CLI) | payer OTHER, MEDICARE ==
[2019-07-28] MEDS ORDERED: IOVERSOL 320 50 ML VIAL ONE (11:24)
[2019-07-28] MEDS ORDERED: IOVERSOL 320 100 ML VIAL IVP ONE ×2 (11:24→12:39)
[2019-07-28] MEDS ORDERED: IOVERSOL 320 50 ML VIAL PO ONE (12:39)
--- NOTE | 2019-07-28 13:09 | CT Report ---
Reason: DIFFUSE ABD PAIN Procedure Date: 07/28/2019 Accession Number: [id number] / [id number] Procedure: CT - Abdomen/Pelvis W CPT Code: Final Report FULL RESULT: EXAM: CT ABDOMEN AND PELVIS EXAM DATE: 07/28/2019 12:34 PM. CLINICAL HISTORY: DIFFUSE ABD PAIN. COMPARISONS: ABDOMEN/PELVIS W/O 05/05/2019 8:01 AM ABDOMEN/PELVIS W/O 03/23/2018 8:45 PM. TECHNIQUE: Routine helical CT imaging was performed through the abdomen and pelvis. IV contrast: Yes . Enteric contrast: Is. Reconstructions: Coronal and sagittal. In accordance with CT protocol optimization, one or more of the following dose reduction techniques were utilized for this exam: automated exposure control, adjustment of mA and/or KV based on patient size, or use of iterative reconstructive technique. FINDINGS: Lung Bases: Small hiatal hernia, otherwise unremarkable. Liver: Fatty. No suspicious masses. Gallbladder/Bile Ducts: Unremarkable post cholecystectomy. Spleen: Unremarkable. Pancreas: Unremarkable. Adrenal Glands: Unremarkable. Kidneys: Unremarkable. No suspicious masses or hydronephrosis. Peritoneal Cavity/Bowel: Post gastric bypass. No bowel obstruction or inflammatory process seen. No free air or significant free fluid. No masses or adenopathy. The appendix is normal. Moderate stool burden. Pelvic Organs: Post hysterectomy with no adnexal masses seen. The bladder appears within normal limits. Vasculature: No aneurysms or other significant abnormality. Bones: No acute or aggressive appearing abnormality. Bilateral sacroiliac degenerative changes. Other: None. IMPRESSION: 1. No acute inflammatory or obstructive process seen in the abdomen or pelvis. 2. Moderate stool burden. 3. Fatty liver. 4. Small hiatal hernia. 5. Post gastric bypass, cholecystectomy and hysterectomy. RADIA
== END 2019-07-28 11:18 | disposition home or self-care (01) ==
LOC: DI 11:17
PROVIDERS: ATTEND Physician Assistant Medical
DX: R10.13 Epigastric pain (principal); K76.0 Fatty (change of) liver, not elsewhere classified; K44.9 Diaphragmatic hernia without obstruction or gangrene
CPT/HCPCS: 74177; Q9967

== ENCOUNTER 2019-07-29 03:59 | Emergency (ER) | payer OTHER, MEDICARE ==
--- NOTE | 2019-07-29 04:09 | ED Physician Documentation ---
PD HPI CHEST PAIN - Stated complaint Stated Complaint: CHEST PX/ LEFT SIDE WEAKNESS - History obtained from History obtained from: Patient - History of Present Illness Timing - onset: Today Timing - details: Abrupt onset Quality: Other (Heat) Location: Epigastric Associated symptoms: Feeling faint / dizzy. No: Nausea, Vomiting, Palpitations Recently seen: Clinic, Emergency Dept - Additional information Additional information: This is a 49-year-old woman who presents with her complaints that "she has been here twice already and they are telling her that it is her stomach". She is having episodes of "pain in her gut" she is "living on Dilantin and let lidocaine cocktail. Tonight she woke up at 3 AM had the same pain took the Mylanta and lidocaine and then felt heat and pain and cold tingly all through the left side of her body. She got up and paste around and as she was mixing the cocktail she noticed that her left hand was weaker and shaky other than normal and when she had a CAT scan yesterday she noticed she only felt the contrast dye on the right side of her body and not the left. Now her left eye is twitching. She said the pain in her got is better after the Mylanta and lidocaine cocktail. She just had a CT scan done yesterday of her abdomen pelvis and she is scheduled for consultation with the surgeon in 3 days for endoscopy. She is complaining of a headache on the top of her head. She felt dizzy but did not pass out. She had no nausea or vomiting. She does have a history of arrhythmia and feels like her heart is racing now. She has been short of breath but has not been coughing. She initially told me she never had symptoms like this before but then proceeded to tell me of 2 other prior episodes where she got this feeling of being hot and tingly all over. Patient is on BuSpar for anxiety. She denies use of alcohol or tobacco but does vape. She has a history of gastric bypass and she has PTSD and fibromyalgia. Review of Systems Constitutional: denies: Fever Cardiac: reports: Palpitations. denies: Chest pain / pressure Respiratory: reports: Dyspnea. denies: Cough GI: reports: Abdominal Pain. denies: Nausea, Vomiting : denies: Dysuria, Now EGA Skin: denies: Rash Neurologic: reports: Focal weakness (Left side of her body), Headache. 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: section, 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 - Present Medications Home Medications: Ambulatory Orders Medication Instructions Recorded Confirmed Citalopram [CeleXA] 50 mg PO DAILY 02/04/15 07/29/19 Multivitamin,Ther and Minerals 1 tab PO DAILY 02/04/15 07/29/19 [Vitamin and Minerals] busPIRone [Buspar] 10 mg PO TID 02/04/15 07/29/19 Ibuprofen [Motrin] 400 mg PO Q6H PRN #20 tablet 03/03/18 07/29/19 Atenolol [Tenormin] 25 mg PO DAILY 03/27/18 07/29/19 Flecainide [Tambocar] 1 tab PO DAILY 03/27/18 07/29/19 Sumatriptan Succinate [Imitrex] 6 mg SQ DAILY PRN #20 pen.[email or web address] 10/21/18 07/29/19 Doxycycline Hyclate 100 mg PO BID #20 capsule 11/17/18 07/29/19 Albuterol Sulf [Ventolin Hfa 1 - 2 puffs INH Q4HR PRN #1 inhaler 03/06/19 07/29/19 Inhaler] Lidocaine Viscous 2% [Xylocaine 5 ml PO Q4H PRN #100 ml 06/23/19 07/29/19 Viscous 2%] Sucralfate [Carafate] 1 gm PO TID #30 tablet 06/23/19 07/29/19 Famotidine 20 mg PO DAILY #30 tablet 07/24/19 07/29/19 LORazepam [Ativan] 1 mg PO ONCE PRN #4 tablet 07/29/19 - Allergies Allergies/Adverse Reactions: Allergies Allergy/AdvReac Type Severity Reaction Status Date / Time gabapentin Allergy Edema Verified 07/29/19 04:21 nortriptyline Allergy Hallucinati Verified 07/29/19 04:21 ons pregabalin [From Lyrica] Allergy Edema Verified 07/29/19 04:21 scallops Allergy Rash Verified 07/29/19 04:21 - Social History Does the pt smoke?: No Smoking Status: Never smoker Does the pt drink ETOH?: Yes Does the pt have substance abuse?: Yes - Immunizations Immunizations are current?: Yes - POLST Patient has POLST: No PD ED PE NORMAL - Vitals Vital signs reviewed: Yes - General General: Alert and oriented X 3, No acute distress, Well developed/nourished - HEENT HEENT: Atraumatic, PERRL, EOMI, Moist mucous membranes - Neck Neck: No adenopathy - Cardiac Cardiac: RRR, No murmur, Strong equal pulses - Respiratory Respiratory: No respiratory distress, Clear bilaterally - Abdomen Abdomen: Normal bowel sounds, Soft, Non tender, No organomegaly, Other (Well- healed scar over the midline epigastric area. 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 She is able to hold both legs off the bed for 5 seconds without any drift. Is 5 out of 5 ankle dorsiflexion bilaterally.), No sensory deficit, Normal speech Results - Vitals Vitals: Vital Signs - 24 hr 07/29/19 07/29/19 07/29/19 04:00 04:02 04:22 Temperature 36.4 C L Heart Rate 73 79 Respiratory 18 16 Rate Blood Pressure 147/89 H 131/89 H Blood Pressure 131/89 H [Left] Blood Pressure 147/89 H [Right] O2 Saturation 98 100 07/29/19 07/29/19 07/29/19 04:55 05:24 05:47 Temperature Heart Rate 68 62 65 Respiratory 15 20 14 Rate Blood Pressure 124/79 123/75 112/68 Blood Pressure [Left] Blood Pressure [Right] O2 Saturation 99 95 95 Oxygen O2 Source Room air - EKG (time done) 0407 Rate: Rate (enter#) (77) Rhythm: NSR Intervals: Normal DE. No: Wide QRS Ischemia: Q waves (II, III, avF), Non specific changes Compare to prior EKG: Unchanged from prior EKG (07-24-19) - Labs Labs: Laboratory Tests 07/29/19 07/29/19 04:15 04:15 WBC 6.7 RBC 4.53 Hgb 13.9 Hct 42.0 MCV 92.7 MCH 30.7 MCHC 33.1 RDW 12.2 Plt Count 211 MPV 10.2 Neut # (Auto) 3.3 Lymph # (Auto) 2.7 Tillman # (Auto) 0.5 Eos # (Auto) 0.1 Baso # (Auto) 0.0 Absolute Nucleated RBC 0.00 Nucleated RBC % 0.0 Sodium 139 Potassium 3.4 L Chloride 102 Carbon Dioxide 28 Anion Gap 9.0 BUN 8 Creatinine 0.9 Estimated GFR (MDRD) 66 L Glucose 112 H Calcium 8.6 Total Bilirubin 1.1 H AST 26 ALT 25 Alkaline Phosphatase 124 H Total Protein 6.3 L Albumin 3.7 Globulin 2.6 Albumin/Globulin Ratio 1.4 Lipase 19 L PD MEDICAL DECISION MAKING - ED course Complexity details: reviewed old records, reviewed results, re-evaluated patient, d/w patient, d/w family ED course: Laboratory studies are normal. The patient's head CT was negative. On reevaluation she stated that the abdominal pain was gone she still had a few prickles in the left hand. She is only taking 5 cc of the viscous lidocaine twice a day so I do not think this is a lidocaine toxicity issue. She is very distraught over the fact that nobody is been able to figure out what is causing the symptoms but I pointed out that she has an appointment in just 3 days with the surgeon for consultation to have the endoscopy done which is what she really needs. She is taking Pepcid orally but she is also using Pepcid and Carafate that could interfere with the absorption of the Pepcid and make it less effective. She began crying and did make the comment that she does not feel like her anxiety medication is working very well. Gave her dose of Ativan 1 mg here in the parchment she has an appoint with her primary care provider on Tuesday and I will provide a prescription for just for Ativan 1 mg tablets we talked about the fact that this is not a good long-term solution and she states understanding. Departure - Departure Disposition: 01 Home, Self Care Clinical Impression: Arm paresthesia, left, Anxiety Abdominal pain Qualifiers: Abdominal location: epigastric Qualified Code(s): R10.13 - Epigastric pain Condition: Good Instructions: ED Panic Attack Follow-Up: Dalila Barba PA-C [Primary Care Provider] - Prescriptions: LORazepam [Ativan] 1 mg PO ONCE PRN #4 tablet PRN Reason: Anxiety Comments: It is imperative that you keep the appointment with the surgeon on Tuesday for consultation for the endoscopy. See your primary care provider on Tuesday about further treatment for anxiety.
[2019-07-29 04:37] LABS: BASOPHILS % (AUTO) 0.3 %; EOSINOPHILS # (AUTO) 0.1 10^3/uL (0.0-0.7); EOSINOPHILS % (AUTO) 1.5 %; HGB - HEMOGLOBIN 13.9 g/dL (12.0-16.0); LYMPHOCYTES # (AUTO) 2.7 10^3/uL (1.5-3.5); LYMPHOCYTES % (AUTO) 40.8 %; MEAN CORPUSCULAR HEMOGLOBIN 30.7 pg (27.0-31.0); MEAN CORPUSCULAR HGB CONC 33.1 g/dL (32.0-36.0); MEAN CORPUSCULAR VOLUME 92.7 fL (81.0-99.0); MEAN PLATELET VOLUME 10.2 fL (7.9-10.8); MONOCYTES # (AUTO) 0.5 10^3/uL (0.0-1.0); MONOCYTES % (AUTO) 8.1 %; NEUTROPHILS # (AUTO) 3.3 10^3/uL (1.5-6.6); PLT - PLATELET COUNT 211 10^3/uL (130-450); RED BLOOD COUNT 4.53 10^6/uL (4.20-5.40); RED CELL DISTRIBUTION WIDTH 12.2 % (12.0-15.0); WHITE BLOOD COUNT 6.7 x10^3/uL (4.8-10.8)
--- NOTE | 2019-07-29 05:13 | CT Report ---
Reason: parasthesias L side Procedure Date: 07/29/2019 Accession Number: [id number] / [id number] Procedure: CT - HEAD WO CPT Code: Final Report FULL RESULT: EXAM: CT HEAD EXAM DATE: 07/29/2019 05:00 AM. CLINICAL HISTORY: Parasthesias L side. COMPARISON: HEAD W/O 08/17/2015 4:13 PM. TECHNIQUE: Multiaxial CT images were obtained from the foramen magnum to the vertex. Reformats: Sagittal and coronal. IV contrast: None. In accordance with CT protocol optimization, one or more of the following dose reduction techniques were utilized for this exam: automated exposure control, adjustment of mA and/or KV based on patient size, or use of iterative reconstructive technique. FINDINGS: Parenchyma: No intraparenchymal hemorrhage. No evidence of mass, midline shift, or CT findings of infarction. Sol-white differentiation is distinct. Extraaxial Spaces: Normal for age. No subdural or epidural collections identified. Ventricles: Normal in size and position. Sinuses and Orbits: Imaged paranasal sinuses, orbits, and mastoids show no significant abnormality. Bones: No evidence of fracture or calvarial defect. Other: None. IMPRESSION: No acute intracranial abnormality. RADIA
[2019-07-29 05:14] LABS: ALBUMIN 3.7 g/dL (3.2-5.5); ALBUMIN/GLOBULIN RATIO 1.4 (1.0-2.2); BILIRUBIN,TOTAL 1.1 mg/dL (0.2-1.0); CALCIUM 8.6 mg/dL (8.5-10.3); CREATININE 0.9 mg/dL (0.4-1.0); TOTAL PROTEIN 6.3 g/dL (6.7-8.2)
[2019-07-29] MEDS ORDERED: LORazepam 1 MG TABLET PO STA (05:57)
[2019-07-29 06:12] VITALS: BP 121/74
== END 2019-07-29 06:17 | disposition home or self-care (01) ==
LOC: ED 03:59
DX: R10.13 Epigastric pain (principal); R20.2 Paresthesia of skin; F41.9 Anxiety disorder, unspecified; F43.10 Post-traumatic stress disorder, unspecified; R51 Headache; R42 Dizziness and giddiness; I10 Essential (primary) hypertension; M79.7 Fibromyalgia; Z98.84 Bariatric surgery status
CPT/HCPCS: 36415; 70450; 80053; 83690; 85025; 93005; 99284; J8499

== ENCOUNTER 2019-08-13 17:32 | Emergency (ER) | payer OTHER, MEDICARE ==
[2019-08-13 18:25] LABS: BILIRUBIN,URINE NEGATIVE (NEGATIVE); GLUCOSE, URINE (UA) NEGATIVE (NEGATIVE); KETONES,URINE (UA) NEGATIVE (NEGATIVE); LEUKOCYTE ESTERASE, URINE NEGATIVE (NEGATIVE); NITRITE,URINE POSITIVE (NEGATIVE); OCCULT BLOOD,URINE TRACE-LYSE (NEGATIVE); PROTEIN,URINE NEGATIVE (NEGATIVE); UROBILINOGEN,URINE 1 (NORMAL) E.U./dL (NORMAL)
[2019-08-13 18:50] LABS: CALCIUM 8.9 mg/dL (8.5-10.3); CREATININE 1.1 mg/dL (0.4-1.0)
[2019-08-13 18:51] LABS: CLARITY,URINE CLEAR (CLEAR)
[2019-08-13 18:52] LABS: BACTERIA,URINE Rare /HPF (None Seen); RBC,URINE 0-5 /HPF (0-5); SQUAMOUS EPITHELIAL CELL,UR RARE Squamous (<= Few)
[2019-08-13] MEDS ORDERED: NITROFURANTOIN MACRO 100 MG CAPSULE PO STA (18:53)
--- NOTE | 2019-08-13 18:53 | ED Physician Documentation ---
History of Present Illness - Stated complaint Stated Complaint: LOW BS - Chief complaint Chief Complaint: General - History obtained from History obtained from: Patient (49-year-old woman with borderline diabetes has been on metformin for a couple of months. Since then she is actually lost quite a bit of weight. Today she started feel shaky and sweaty and checked her blood sugar and it was 41 which resolved after taking oral glucose. She also has some urinary frequency and dysuria. Denies fevers or chills.) Review of Systems Constitutional: reports: Sweats. 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, 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 - Present Medications Home Medications: Ambulatory Orders Medication Instructions Recorded Confirmed Citalopram [CeleXA] 50 mg PO DAILY 02/04/15 07/29/19 Multivitamin,Ther and Minerals 1 tab PO DAILY 02/04/15 07/29/19 [Vitamin and Minerals] busPIRone [Buspar] 10 mg PO TID 02/04/15 07/29/19 Ibuprofen [Motrin] 400 mg PO Q6H PRN #20 tablet 03/03/18 07/29/19 Atenolol [Tenormin] 25 mg PO DAILY 03/27/18 07/29/19 Flecainide [Tambocar] 1 tab PO DAILY 03/27/18 07/29/19 Sumatriptan Succinate [Imitrex] 6 mg SQ DAILY PRN #20 pen.[email or web address] 10/21/18 07/29/19 Doxycycline Hyclate 100 mg PO BID #20 capsule 11/17/18 07/29/19 Albuterol Sulf [Ventolin Hfa 1 - 2 puffs INH Q4HR PRN #1 inhaler 03/06/19 07/29/19 Inhaler] Lidocaine Viscous 2% [Xylocaine 5 ml PO Q4H PRN #100 ml 06/23/19 07/29/19 Viscous 2%] Sucralfate [Carafate] 1 gm PO TID #30 tablet 06/23/19 07/29/19 Famotidine 20 mg PO DAILY #30 tablet 07/24/19 07/29/19 LORazepam [Ativan] 1 mg PO ONCE PRN #4 tablet 07/29/19 Nitrofurantoin Monohyd/M-Cryst 100 mg PO BID #10 capsule 08/13/19 [Macrobid 100 mg Capsule] - Allergies Allergies/Adverse Reactions: Allergies Allergy/AdvReac Type Severity Reaction Status Date / Time gabapentin Allergy Edema Verified 07/29/19 04:21 nortriptyline Allergy Hallucinati Verified 07/29/19 04:21 ons pregabalin [From Lyrica] Allergy Edema Verified 07/29/19 04:21 scallops Allergy Rash Verified 07/29/19 04:21 - Social History Does the pt smoke?: No Smoking Status: Never smoker Does the pt drink ETOH?: Yes Does the pt have substance abuse?: Yes - Immunizations Immunizations are current?: Yes - POLST Patient has POLST: No PD ED PE NORMAL - Vitals Vital signs reviewed: Yes - General General: Alert and oriented X 3, No acute distress - Abdomen Abdomen: Normal bowel sounds, Soft, Non tender - Neuro Neuro: Alert and oriented X 3, Normal speech Results - Vitals Vitals: Vital Signs - 24 hr 08/13/19 17:35 Temperature 36.4 C L Heart Rate 83 Respiratory 18 Rate Blood Pressure 126/74 O2 Saturation 100 Oxygen O2 Source Room air - Labs Labs: Laboratory Tests 08/13/19 08/13/19 08/13/19 17:39 18:07 18:10 Sodium Potassium Chloride Carbon Dioxide Anion Gap BUN Creatinine Estimated GFR (MDRD) Glucose POC Whole Bld Glucose 112 H 104 H Glycated Hemoglobin Estim Average Glucose Calcium Urine Color ORANGE Urine Clarity CLEAR Urine pH 6.0 Ur Specific [place] <=1.005 Urine Protein NEGATIVE Urine Glucose (UA) NEGATIVE Urine Ketones NEGATIVE Urine Occult Blood TRACE-LYSE Urine Nitrite POSITIVE H Urine Bilirubin NEGATIVE Urine Urobilinogen 1 (NORMAL) Ur Leukocyte Esterase NEGATIVE Urine RBC 0-5 Urine WBC 0-3 Ur Squamous Epith Cells RARE Squamous Urine Bacteria Rare Ur Microscopic Review INDICATED Urine Culture Comments INDICATED 08/13/19 08/13/19 08/13/19 18:29 18:29 18:55 Sodium 141 Potassium 3.8 Chloride 109 Carbon Dioxide 24 Anion Gap 8.0 BUN 9 Creatinine 1.1 H Estimated GFR (MDRD) 53 L Glucose 136 H POC Whole Bld Glucose 106 H Glycated Hemoglobin 5.5 Estim Average Glucose 111 H Calcium 8.9 Urine Color Urine Clarity Urine pH Ur Specific [place] Urine Protein Urine Glucose (UA) Urine Ketones Urine Occult Blood Urine Nitrite Urine Bilirubin Urine Urobilinogen Ur Leukocyte Esterase Urine RBC Urine WBC Ur Squamous Epith Cells Urine Bacteria Ur Microscopic Review Urine Culture Comments PD MEDICAL DECISION MAKING - ED course ED course: 49-year-old woman with symptomatic hypoglycemia today, she is on metformin but no other antidiabetic agents. She was observed for several hours without recurrent hypoglycemia. Her hemoglobin A1c tonight was only 5.5 suggesting no further need for Metformin, she has lost weight recently. Departure - Departure Disposition: 01 Home, Self Care Clinical Impression: Hypoglycemia associated with type 2 diabetes mellitus, Cystitis Condition: Good Record reviewed to determine appropriate education?: Yes Instructions: ED Diabetes Hypoglycemia Oral Agent Prescriptions: Nitrofurantoin Monohyd/M-Cryst [Macrobid 100 mg Capsule] 100 mg PO BID #10 capsule Comments: Your hemoglobin A1c is only 5.5. I would suggest stopping the metformin until you follow-up with your primary care physician. Eat well tonight. Return for new or worsening symptoms. We will culture your urine, the results should be done in 48-72 hours. If an antibiotic change is necessary we will call you. Return if worse in the meantime, especially if you develop increasing flank pain, fevers, or cannot keep down the medication.
[2019-08-13 19:02] LABS: HEMOGLOBIN A1C 0.52 g/dL; HEMOGLOBIN A1C % 5.5 % (4.6-6.2)
[2019-08-13 20:04] VITALS: BP 121/77
== END 2019-08-13 20:16 | disposition home or self-care (01) ==
LOC: ED 17:32
DX: E11.649 Type 2 diabetes mellitus with hypoglycemia without coma (principal); N30.90 Cystitis, unspecified without hematuria; I10 Essential (primary) hypertension
CPT/HCPCS: 36415; 80048; 81001; 83036; 87086; 99283; A9270; 81003

== ENCOUNTER 2019-11-25 07:25 | Outpatient (CLI) | payer OTHER | END 2019-11-25 07:26 | disposition critical access hospital (66) | LOC: EMS 07:25 | PROVIDERS: ATTEND Surgery | DX: R10.9 Unspecified abdominal pain (principal); M25.562 Pain in left knee; M25.561 Pain in right knee; R25.9 Unspecified abnormal involuntary movements | CPT/HCPCS: A0425; A0429 ==

== ENCOUNTER 2019-11-25 07:37 | Emergency (ER) | payer MEDICARE, OTHER ==
--- NOTE | 2019-11-25 07:53 | ED Physician Documentation ---
PD HPI ABD PAIN - Stated complaint Stated Complaint: LEG/ ABD PX - History obtained from History obtained from: Patient - History of Present Illness Timing - onset: Today Timing - duration: Hours (1) Timing - details: Abrupt onset Pain level now: 0 (Hurts only to palpate) Quality: Other ("On fire") Location: Epigastric, Periumbilical Radiation: No: Other Associated symptoms: Diarrhea, Constipation, Dysuria, Dizzy, Near syncope / syncope. No: Fever, Nausea, Vomiting, Hematochezia, Chest pain Similar symptoms before: Work up / diagnostics Recently seen: Not recently seen - Additional information Additional information: This is a 49-year-old woman who presents with complaints that she was awakened at 6 AM this morning with her joints and her legs and her abdomen being "on fire". She says she is pretty sure it was a "full-fledged panic attack. She woke up with this pain got up to go to the bathroom had a small bowel movement that was not diarrhea she just started shaking uncontrollably from her head to her toe so she drank little water and ate a sugar tablet and took 2 BuSpar and laid back down. She then had to get up and go to the bathroom again where she had a little bit more stool and then her whole body was shaking she had a "complete loss" of body control. Her heart was racing she was short of breath she took a lorazepam and called her in. She felt freezing cold chills and shakes but did not check her temperature. This was around 7 AM and they finally let her to call the ambulance. She says she has been worked up for this in the past in the emergency department and they have always told her that everything looked fine and that this was related to a panic attack. She was referred to a GI doctor who did an upper endoscopy and everything looked "fine" she is scheduled for a colonoscopy on December 18. She is feeling little better now her abdomen is only hurting if she touches it. She has recurrent alternating soft stool and constipation. She says she passes a lot of mucus but has never seen blood in her stool. She has a standing prescription for Keflex 500 mg twice daily to use for recurrent urinary tract infections at home. She started feeling symptomatic about 3 days ago and restarted the Keflex. To her knowledge no one has tested any stool studies on her including a C. difficile. Patient feels that her urine still has a bit of a strong odor despite taking the Keflex and She has Azo [id number] that she uses from time to time but has not had any today. Patient denies any fevers, cough, sore throat or stuffy nose. Other than the foul odor she has not noted dysuria. Patient has had 2 prior gastric bypasses as well as a hysterectomy. Review of Systems Constitutional: reports: Chills, Myalgias, Sweats. denies: Fever Nose: denies: Congestion Throat: denies: Sore throat Cardiac: reports: Palpitations Respiratory: reports: Dyspnea. denies: Cough GI: reports: Abdominal Pain, Constipation, Diarrhea. denies: Nausea, Vomiting, Hematemesis, Bloody / black stool : reports: Other (foul odor). 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 : None HEENT: Other Psych: Depression, Anxiety, Post traumatic stress disorder Musculoskeletal: Osteoarthritis, Fibromyalgia, Chronic back pain Derm: Herpes zoster - Past Surgical History Past Surgical History: Yes General: Gastric surgery /DELINQUENT TAX COLLECTOR ASSISTANT: section, 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 - Present Medications Home Medications: Ambulatory Orders Medication Instructions Recorded Confirmed Citalopram [CeleXA] 50 mg PO DAILY 02/04/15 07/29/19 Multivitamin,Ther and Minerals 1 tab PO DAILY 02/04/15 07/29/19 [Vitamin and Minerals] busPIRone [Buspar] 10 mg PO TID 02/04/15 07/29/19 Ibuprofen [Motrin] 400 mg PO Q6H PRN #20 tablet 03/03/18 07/29/19 Flecainide [Tambocar] 1 tab PO DAILY 03/27/18 07/29/19 atenoloL [Tenormin] 25 mg PO DAILY 03/27/18 07/29/19 Sumatriptan Succinate [Imitrex] 6 mg SQ DAILY PRN #20 pen.[email or web address] 10/21/18 07/29/19 Doxycycline Hyclate 100 mg PO BID #20 capsule 11/17/18 07/29/19 Albuterol Sulf [Ventolin Hfa 1 - 2 puffs INH Q4HR PRN #1 inhaler 03/06/19 07/29/19 Inhaler] Lidocaine Viscous 2% [Xylocaine 5 ml PO Q4H PRN #100 ml 06/23/19 07/29/19 Viscous 2%] Sucralfate [Carafate] 1 gm PO TID #30 tablet 06/23/19 07/29/19 Famotidine 20 mg PO DAILY #30 tablet 07/24/19 07/29/19 LORazepam [Ativan] 1 mg PO ONCE PRN #4 tablet 07/29/19 Nitrofurantoin Monohyd/M-Cryst 100 mg PO BID #10 capsule 08/13/19 [Macrobid 100 mg Capsule] LORazepam [Ativan] 1 mg PO Q8H PRN #4 tablet 11/25/19 - Allergies Allergies/Adverse Reactions: Allergies Allergy/AdvReac Type Severity Reaction Status Date / Time gabapentin Allergy Edema Verified 07/29/19 04:21 nortriptyline Allergy Hallucinati Verified 07/29/19 04:21 ons pregabalin [From Lyrica] Allergy Edema Verified 07/29/19 04:21 scallops Allergy Rash Verified 07/29/19 04:21 - Social History Does the pt smoke?: No Smoking Status: Never smoker Does the pt drink ETOH?: Yes Does the pt have substance abuse?: Yes - Immunizations Immunizations are current?: Yes - POLST Patient has POLST: No PD ED PE NORMAL - Vitals Vital signs reviewed: Yes - General General: Alert and oriented X 3, No acute distress (Talking rapidly, short, shallow breaths), Well developed/nourished - HEENT HEENT: Atraumatic, PERRL, Moist mucous membranes - Neck Neck: No adenopathy, Thyroid normal - Cardiac Cardiac: RRR, No murmur - Respiratory Respiratory: No respiratory distress, Clear bilaterally - Abdomen Abdomen: Normal bowel sounds, Soft, Non tender, Non distended, Other (Obese. Well-healed scar down the midline.Nontender. No guarding or rebound.) - Derm Derm: Normal color, Warm and dry, No rash - Neuro Neuro: Alert and oriented X 3, No motor deficit, No sensory deficit, Normal speech Results - Vitals Vitals: Vital Signs - 24 hr 11/25/19 11/25/19 07:40 09:31 Temperature 37.0 C Heart Rate 75 70 Respiratory 22 16 Rate Blood Pressure 133/86 H 118/76 O2 Saturation 98 Oxygen O2 Source Room air - Labs Labs: Laboratory Tests 11/25/19 11/25/19 11/25/19 08:00 08:00 08:10 WBC 5.7 RBC 4.45 Hgb 13.9 Hct 41.6 MCV 93.5 MCH 31.2 H MCHC 33.4 RDW 12.2 Plt Count 223 MPV 9.7 Neut # (Auto) 3.5 Lymph # (Auto) 1.6 [place] # (Auto) 0.4 Eos # (Auto) 0.1 Baso # (Auto) 0.0 Absolute Nucleated RBC 0.00 Nucleated RBC % 0.0 Sodium 139 Potassium 3.2 L Chloride 105 Carbon Dioxide 22 Anion Gap 12.0 BUN 11 Creatinine 0.6 Estimated GFR (MDRD) 106 Glucose 100 Calcium 8.9 Total Bilirubin 0.8 AST 26 ALT 18 Alkaline Phosphatase 123 H Total Protein 6.3 L Albumin 3.7 Globulin 2.6 Albumin/Globulin Ratio 1.4 Lipase 20 L Urine Color YELLOW Urine Clarity CLEAR Urine pH 7.0 Ur Specific [place] <=1.005 Urine Protein NEGATIVE Urine Glucose (UA) NEGATIVE Urine Ketones NEGATIVE Urine Occult Blood TRACE-INTA Urine Nitrite NEGATIVE Urine Bilirubin NEGATIVE Urine Urobilinogen 0.2 (NORMAL) Ur Leukocyte Esterase NEGATIVE Ur Microscopic Review NOT INDICATED Urine Culture Comments NOT INDICATED PD MEDICAL DECISION MAKING - ED course Complexity details: reviewed old records, reviewed results, re-evaluated jaya pate, d/w patient ED course: 926: I did review the patient's old records. She has had a couple episodes of this that she has been seen in the emergency department for but she is also on metformin and has had hypoglycemic reactions in the past. She took 2 sugar pills before arriving here in the emergency department and her blood glucose was 100 on the labs. I did have them recheck a blood sugar approximately hour after her arrival and it was 101. Potassium was slightly low at 3.2. No elevation her white blood cell count and her urinalysis was negative. When I went in to discuss the results patient was sound asleep but easily arousable. I have encouraged her to follow through with the colonoscopy as scheduled. At this point I do not see any indication for testing her stool for C. difficile since she had a small balls of stool today and no diarrhea. Avoid any foods that she knows upset her stomach and gut. I also encouraged her to take her blood sugar in the future if she is feeling very shaky because part of this that happened this morning could have been a hypoglycemic reaction. 1004: Nursing staff stopped me and stated that the patient was out of her lorazepam at home and wondered if she could have a prescription for a few doses to get her through the weekend if needed. She is given a prescription for for Ativan 1 mg tablets. Departure - Departure Disposition: Home, Self Care Clinical Impression: Abdominal pain Qualifiers: Abdominal location: generalized Qualified Code(s): R10.84 - Generalized abdominal pain Condition: Good Instructions: ED Abdominal Pain Unkn Cause Follow-Up: Ana Cheung ARNP [Primary Care Provider] - Prescriptions: LORazepam [Ativan] 1 mg PO Q8H PRN #4 tablet PRN Reason: Anxiety Comments: Avoid any food that you know upsets your stomach. Make sure that you are drinking plenty of water. If you experience shakiness like he did this morning again in the future please check your blood sugar as some of this could have been a hypoglycemic reaction. Continue taking your normal medications and follow through with the colonoscopy as scheduled. Follow-up with your primary care provider as needed.
[2019-11-25 08:09] LABS: BASOPHILS % (AUTO) 0.3 %; EOSINOPHILS # (AUTO) 0.1 10^3/uL (0.0-0.7); EOSINOPHILS % (AUTO) 1.9 %; HGB - HEMOGLOBIN 13.9 g/dL (12.0-16.0); LYMPHOCYTES # (AUTO) 1.6 10^3/uL (1.5-3.5); MEAN CORPUSCULAR HEMOGLOBIN 31.2 pg (27.0-31.0); MEAN CORPUSCULAR HGB CONC 33.4 g/dL (32.0-36.0); MEAN CORPUSCULAR VOLUME 93.5 fL (81.0-99.0); MEAN PLATELET VOLUME 9.7 fL (7.9-10.8); MONOCYTES # (AUTO) 0.4 10^3/uL (0.0-1.0); MONOCYTES % (AUTO) 7.7 %; NEUTROPHILS # (AUTO) 3.5 10^3/uL (1.5-6.6); NEUTROPHILS % (AUTO) 61.9 %; PLT - PLATELET COUNT 223 10^3/uL (130-450); RED BLOOD COUNT 4.45 10^6/uL (4.20-5.40); RED CELL DISTRIBUTION WIDTH 12.2 % (12.0-15.0); WHITE BLOOD COUNT 5.7 x10^3/uL (4.8-10.8)
[2019-11-25 08:22] LABS: ALBUMIN 3.7 g/dL (3.2-5.5); ALBUMIN/GLOBULIN RATIO 1.4 (1.0-2.2); BILIRUBIN,TOTAL 0.8 mg/dL (0.2-1.0); CALCIUM 8.9 mg/dL (8.5-10.3); CREATININE 0.6 mg/dL (0.4-1.0); TOTAL PROTEIN 6.3 g/dL (6.7-8.2)
[2019-11-25 08:33] LABS: BILIRUBIN,URINE NEGATIVE (NEGATIVE); GLUCOSE, URINE (UA) NEGATIVE (NEGATIVE); KETONES,URINE (UA) NEGATIVE (NEGATIVE); LEUKOCYTE ESTERASE, URINE NEGATIVE (NEGATIVE); NITRITE,URINE NEGATIVE (NEGATIVE); OCCULT BLOOD,URINE TRACE-INTA (NEGATIVE); PROTEIN,URINE NEGATIVE (NEGATIVE); UROBILINOGEN,URINE 0.2 (NORMAL) E.U./dL (NORMAL)
[2019-11-25 08:48] LABS: CLARITY,URINE CLEAR (CLEAR)
[2019-11-25] MEDS ORDERED: POTASSIUM CHLORIDE 20 MEQ TABLET PO ONE (09:24)
[2019-11-25 09:32] VITALS: BP 118/76
[2019-11-25] MEDS ORDERED: LIDOCAINE PATCH 5% TOP STA (10:02)
== END 2019-11-25 10:50 | disposition home or self-care (01) ==
LOC: EDUNIT# → ED 07:37
DX: R10.84 Generalized abdominal pain (principal); I10 Essential (primary) hypertension
CPT/HCPCS: 36415; 80053; 81003; 83690; 85025; 99283; A9270; 81001; 87086

== ENCOUNTER 2020-01-22 14:34 | Outpatient (CLI) | payer BC, MEDICARE ==
--- NOTE | 2020-01-23 04:56 | XRAY Report ---
Reason: CERVICAL RADICULOPATHY Procedure Date: 01/22/2020 Accession Number: [id number] / [id number] Procedure: XR - Cervical Spine 2 View CPT Code: Final Report FULL RESULT: EXAM: CERVICAL SPINE RADIOGRAPHY EXAM DATE: 01/22/2020 02:41 PM. CLINICAL HISTORY: CERVICAL RADICULOPATHY. COMPARISONS: 10/02/2018 12:15 PM. TECHNIQUE: 3 views. (4 films obtained including 2 odontoid views) FINDINGS: Alignment: Normal. No spondylolisthesis or scoliosis. Bones: The cervical vertebral bodies and posterior elements are well visualized from the skull base through C7-T1. No fractures or bone lesions. Disks: Normal. Disk heights are maintained. Facets: Moderate facet hypertrophy at C7-T1. Soft Tissues: Normal. No prevertebral soft tissue swelling. The visualized lung apices are clear. IMPRESSION: Moderate C7-T1 facet hypertrophy. RADIA
== END 2020-01-22 14:35 | disposition home or self-care (01) ==
LOC: DI 14:34
PROVIDERS: ATTEND Family Medicine
DX: M54.12 Radiculopathy, cervical region (principal)
CPT/HCPCS: 72040

== ENCOUNTER 2020-05-15 10:19 | Outpatient (CLI) | payer OTHER ==
--- NOTE | 2020-05-15 12:11 | Mammography Report ---
BILATERAL DIGITAL SCREENING MAMMOGRAM 3D/2D: 05/15/2020 CLINICAL: Routine screening. Comparison is made to exams dated: 11/14/2017 mammogram, 03/12/2015 mammogram, 03/28/2014 mammogram, mammogram, 08/20/2013 mammogram, and 08/20/2013 mammogram - [facility]. Th ere are scattered fibroglandular elements in both breasts. There is a possible 0.9 cm oval equal density asymmetry in the left breast middle depth lateral regio n seen on the craniocaudal view only. There also are grouped fine heterogeneous calcifications in the left breast at 12 o'clock middle dept h. These are more prominent and increased in number. A biopsy marker is noted a short distance pos teriorly to these calcifications. No other significant masses, calcifications, or other findings are seen in either breast. IMPRESSION: INCOMPLETE: NEEDS ADDITIONAL IMAGING EVALUATION The possible 0.9 cm oval equal density asymmetry in the left breast middle depth lateral region seen on the craniocaudal view only is indeterminate. Additional views with possible ultrasound are recomm ended. The grouped fine heterogeneous calcifications in the left breast at 12 o'clock middle depth are indet erminate. Mediolateral and spot magnification views are recommended. This exam was interpreted at Station ID: [id number]. NOTE: For mammograms, a report in lay terms will be sent to the patient. Approximately 15% of breast malignancies will not be visualized mammographically. In the management of a palpable breast mass, a negative mammogram must not discourage biopsy of a clinically suspicious lesion. Electronically Signed By: Constantino Rojas M.D. aty/:05/15/2020 10:59:27 ACR BI-RADS Category 0: Incomplete 3340F PARENCHYMAL PATTERN: (A) - The breast(s) demonstrate(s) scattered fibroglandular densities. BI-RADS CATEGORY: (0) - 0 Mammo and [place] [id number] Immediate follow-up LATERALITY: (L)
== END 2020-05-15 10:20 | disposition home or self-care (01) ==
LOC: DI 10:19
PROVIDERS: ATTEND Nurse Practitioner
DX: Z12.31 Encounter for screening mammogram for malignant neoplasm of breast (principal); R92.8 Other abnormal and inconclusive findings on diagnostic imaging of breast
CPT/HCPCS: 77063; 77067

== ENCOUNTER 2020-07-17 08:56 | Outpatient (CLI) | payer OTHER, BC, MEDICARE ==
--- NOTE | 2020-07-18 11:46 | Ultrasound Report ---
LIMITED ULTRASOUND OF LEFT BREAST: 07/17/2020 CLINICAL: Patient returns today to evaluate a focal asymmetry in the left breast. Comparison is made to exams dated: 07/17/2020 mammogram, 05/15/2020 mammogram, 11/29/2019 mammogram, mammogram, 11/15/2016 mammogram, and 03/12/2015 mammogram - [facility]. Ultrasound of the left breast 2 o'clock region was performed. IMPRESSION: SUSPICIOUS OF MALIGNANCY Unremarkable left breast ultrasound with no suspicious sonographic abnormality. The calcifications in the left breast seen on the preceding mammogram are supicious and will need stereotactic biopsy. This exam was interpreted at Station ID: [id number]. Electronically Signed By: Marcos Bustillo M.D. jr/:07/17/2020 11:12:45 Ultrasound BI-RADS: 4 Suspicious for malignancy BI-RADS CATEGORY: (4) - 4 Unspecified - other recall n/a LATERALITY: (B)
--- NOTE | 2020-07-18 11:46 | Mammography Report ---
UNILATERAL LEFT DIGITAL DIAGNOSTIC MAMMOGRAM 3D/2D: 07/17/2020 CLINICAL: Patient returns today to evaluate a focal asymmetry in the left breast. Comparison is made to exams dated: 05/15/2020 mammogram, 11/29/2019 mammogram, 11/14/2017 mammogram, mammogram, 03/12/2015 mammogram, and 03/28/2014 mammogram - [facility]. There are scattered fibroglandular elements in left breast. The 0.9 cm oval equal density asymmetry in the left breast middle depth lateral region seen on the cr aniocaudal view only is unchanged. Previously described grouped fine heterogeneous calcifications in the left breast at 12 o'clock middl e depth remain suspicious on the basis of increased number and conspicuity when compared with prior s tudies. No other significant masses or calcifications are seen in the breast. IMPRESSION: SUSPICIOUS OF MALIGNANCY Grouped fine heterogeneous calcifications in the left breast at 12 o'clock middle depth are suspiciou s. Left breast stereotactic biopsy recommended. Asymmetry in the left breast is unchanged, seen only on CC spot view. Ultrasound recommended. This exam was interpreted at Station ID: [id number]. NOTE: For mammograms, a report in lay terms will be sent to the patient. Approximately 15% of breast malignancies will not be visualized mammographically. In the management of a palpable breast mass, a negative mammogram must not discourage biopsy of a clinically suspicious lesion. Electronically Signed By: Marcos Bustillo M.D. jr/:07/17/2020 09:44:12 ACR BI-RADS Category 4: Suspicious abnormality 3344F PARENCHYMAL PATTERN: (A) - The breast(s) demonstrate(s) scattered fibroglandular densities. BI-RADS CATEGORY: (4) - 4 Unspecified - other [id number] Immediate follow-up LATERALITY: (B)
== END 2020-07-17 08:57 | disposition home or self-care (01) ==
LOC: DI 08:56
PROVIDERS: ATTEND Nurse Practitioner
DX: R92.1 Mammographic calcification found on diagnostic imaging of breast (principal)
CPT/HCPCS: 76642